=== PATIENT | female | born 1965 | race Caucasian/White ===

== ENCOUNTER 2019-03-07 13:53 | Observation (INO) | payer MEDICAID, SELFPAY ==
[2019-03-07] VITALS (11 sets, daily range): BP systolic 95–128; BP diastolic 44–78; PULSE 63–80; RESP 16–22; TEMP 36.4–37.1; O2SAT 90–95; BMI 45.6
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
--- NOTE | 2019-03-07 14:29 | CT_ITS ---
WS: [id number] CT HEAD NONCONTRAST HISTORY: AMS TECHNIQUE: Contiguous axial imaging performed through the brain in 2.5 mm imaging. Bone and soft tiss ue windows. Sagittal and coronal reformats reviewed. All CT scans at [facility] use at ast one of these dose optimization techniques: automated exposure control; mA and/or kV adjustment pe r patient size (includes targeted exams where dose is matched to clinical indication); or iterative r econstruction. DLP: 1843.89 mGy.cm COMPARISON: 06/05/2018 Significant motion artifact. Motion artifact obscures detail and evaluation for edema. No midline sebastian ft or mass effect or hemorrhage is identified. No atrophy or prior infarcts or herniation. Ventricles: Normal size with no hydrocephalus. Paranasal sinuses: As visualized are clear. Mastoid air cells: Well pneumatized. Calvarium and scalp: Skull is intact with no soft tissue edema or swelling. CT/CT head wo con* [id number] IMPRESSION: 1. Technically limited evaluation of the brain due to motion artifact. 2. No significant midline shift or mass effect. No acute hemorrhage is identif ied.
--- NOTE | 2019-03-07 14:29 | XR_ITS ---
WS: [id number] PORTABLE CHEST HISTORY: AMS COMPARISON: 06/05/2018 Lungs are clear and well expanded. No pleural effusion or pneumothorax. Cardiac size: Normal. Mediastinum/Aorta: Normal mediastinum. No osseous abnormality seen. XR/XR chest 1V portable [id number] IMPRESSION: Unremarkable portable chest.
--- NOTE | 2019-03-07 14:30 | ECG_ITS ---
Measurements Intervals [place] Rate: 71 P: 66 UT: 208 QRS: -31 QRSD: 101 T: 43 QT: 355 QTc: 387 SINUS RHYTHM LOW QRS VOLTAGE IN PRECORDIAL LEADS [QRS DEFLECTION < 1.0 mV IN CHEST LEADS] INFERIOR MYOCARDIAL INFARCTION, OF INDETERMINATE AGE ANTEROLATERAL MYOCARDIAL INFARCTION [40+ ms Q WAVE IN I/aVL/V3-V6], OF IN INDETERMINATE AGE Compared to ECG 06/05/2018 12:11:35 No significant changes Electronically Signed On 03-08-2019 14:58:35 [employer]CINE FURNACE LOADER by Josie Hewitt M.D. [id number]
[2019-03-07 14:51] LABS: ABG PCO2 57.3 mmHg (35-45); ABG PH Result 7.29 (7.35-7.45); Base Excess ABG -0.5 mmol/L (-2.0-2.0); Blood Gas Allen Test Pos; Blood Gas Sample Site Radial, left; Blood Gas Sample Type Arterial; HCO3 ABG 27.3 mmol/L (22-26); PO2 ABG 61.9 mmHg (80.0-100.0)
--- NOTE | 2019-03-07 14:54 | PC.NURSE ---
pt's bp 74/34 ed provider notified-fluid started and narcan 0.2mg given via verbal order of ed provider
[2019-03-07] MEDS: naloxone 0.4 mg/ml SDV ×2 (14:55→16:02)
[2019-03-07] MEDS: sodium chloride 0.9% 1,000 ML 999 ML IV (15:07)
[2019-03-07 15:09] LABS: Glucose Point of Care 353 mg/dL (70-110)
--- NOTE | 2019-03-07 15:20 | PC.NURSE ---
pt off unit to ct scan, on stretcher, with tech
[2019-03-07 15:37] LABS: Basophils % 0.3 %; Eosinophils # 0.4 10^3/uL (0.0-0.8); Eosinophils % 5.2 %; Hemoglobin 13.3 g/dL (11.5-15.3); Lymphocytes # 2.3 10^3/uL (0.8-4.8); Lymphocytes % 29.4 %; Mean Corpuscular HGB Conc 30.9 g/dL (30.0-36.0); Mean Corpuscular Hemoglobin 29.2 pg (28.0-34.0); Mean Corpuscular Volume 94.3 fL (81-99); Mean Platelet Volume 10.9 fL (7.4-10.4); Monocytes # 0.5 10^3/uL (0.2-0.9); Monocytes % 6.3 %; Neutrophils # 4.6 10^3/uL (1.8-7.7); Neutrophils % 58.3 %; Nucleated Red Blood Cells % 0 %; Platelet Count 239 10^3/cmm (130-400); Red Blood Count 4.56 10^6/uL (4.1-5.3); Red Cell Distribution Width 13.6 % (12.1-15.1); White Blood Count 7.9 10^3/uL (4.0-10.0)
[2019-03-07 15:48] LABS: Lactate (Lactic Acid level) 2.1 mmol/L (0.5-2.2)
[2019-03-07 15:51] LABS: Troponin(5th) Baseline 8 ng/mL (0-10)
[2019-03-07 16:00] LABS: Anion Gap 14.3 (5-19); Blood Urea Nitrogen 10 mg/dL (6-20); Carbon Dioxide 26 mmol/L (22-29); Chloride 99 mmol/L (98-107); Potassium 4.3 mmol/L (3.5-5.1); Sodium 135 mmol/L (136-145)
[2019-03-07 16:01] LABS: Alanine Aminotransferase 20 U/L (0-33); Albumin Level 3.3 g/dL (3.5-5.2); Alkaline Phosphatase 87 IU/L (35-105); Aspartate Amino Transferase 20 U/L (0-32); Calcium 9.3 mg/Dl (8.6-10.0); Globulin 2.8 g/dL (1.3-4.6); Glomerular Filtration Rate 87.2 mL/min (90-130); Glucose 380 mg/dL (74-109); Magnesium 2.1 mg/dL (1.7-2.3); Total Bilirubin 0.2 mg/dL (0.15-1.2); Total Protein 6.1 g/dL (6.6-8.7)
--- NOTE | 2019-03-07 16:04 | PC.NURSE ---
pt placed on bipap ventilation, RT at bedside
[2019-03-07 16:06] LABS: Acetaminophen < 5.0 ug/mL (10-30); Alcohol Level < 10 mg/dL (0-10); Salicylate < 0.3 mg/dL (3-10)
[2019-03-07 16:09] LABS: Ketone (Acetest) Serum Negative (Negative)
[2019-03-07 16:13] LABS: HCG, Serum Qual Negative (Negative)
--- NOTE | 2019-03-07 16:15 | PC.RESP ---
BIPAP ID==[id number]. Pt placed on bipap and immediately ripped it off. Dr Chavez notified.
--- NOTE | 2019-03-07 16:23 | PC.NURSE ---
pt refused to wear bipap ventilation. ed provider notified.
--- NOTE | 2019-03-07 16:30 | ECG_ITS ---
Measurements Intervals [place] Rate: 75 P: 65 MT: 199 QRS: -25 QRSD: 106 T: 53 QT: 359 QTc: 403 SINUS RHYTHM LOW QRS VOLTAGE IN PRECORDIAL LEADS ANTERIOR MYOCARDIAL INFARCTION , OF INDETERMINATE AGE Compared to ECG 06/05/2018 12:11:35 No significant changes Electronically Signed On 03-08-2019 15:02:58 SHOE STITCHER ODD by Josie Hewitt M.D. [id number] f
[2019-03-07 17:40] LABS: Troponin 5 2HR 7.26 ng/mL (0-10)
[2019-03-07 17:42] LABS: Troponin 5 2HR Delta -0.74 ABS# (0-10)
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
[2019-03-07 21:10] LABS: Glucose Point of Care 225 mg/dL (70-110)
[2019-03-07] MEDS: metoprolol tartrate 50 mg Tablet 100 MG PO (21:28)
[2019-03-07] MEDS: enoxaparin 40 mg/0.4 mL Syringe SUBCUT (21:29)
[2019-03-07] MEDS: cloNIDine 0.1 mg Tablet PO (21:29)
[2019-03-07] MEDS: pregabalin 100 mg Capsule 200 MG PO (21:32)
[2019-03-07 21:55] LABS: Troponin 5 6HR 6.25 ng/L (0-10)
[2019-03-07 22:01] LABS: Troponin 5 6HR Delta -1.75 ng/L (0-12)
[2019-03-08 02:19] LABS: Urine Appearance Clear (CLEAR); Urine Color Yellow (Yellow)
[2019-03-08 02:20] LABS: Bilirubin Urine Neg (NEGATIVE); Blood Urine Neg (Negative); Glucose Urine UA 4+ (Normal); Ketones Urine Negative (Negative); Leukocyte Esterase Urine Negative (Negative); Nitrate Urine Negative (Negative); Protein Urine Neg (Negative); RBC Urine 0-4 /hpf (0-2); Urobilinogen Urine Norm (Negative); pH Urine 5 (5-7)
[2019-03-08 02:21] LABS: Add Urine Culture? No; Bacteria Urine 1+; Mucus Urine 1+; Squamous Epithelial Cell Urine 0-4 (0-5)
[2019-03-08 04:00] VITALS: BP 102/60; PULSE 70; RESP 19; TEMP 36.6; O2SAT 92
[2019-03-08 06:13] LABS: Basophils % 0.4 %; Eosinophils # 0.4 10^3/uL (0.0-0.8); Eosinophils % 5.4 %; Hematocrit 42.8 % (37.0-47.0); Hemoglobin 13.5 g/dL (11.5-15.3); Lymphocytes # 2.2 10^3/uL (0.8-4.8); Lymphocytes % 31.8 %; Mean Corpuscular HGB Conc 31.5 g/dL (30.0-36.0); Mean Corpuscular Hemoglobin 28.7 pg (28.0-34.0); Mean Corpuscular Volume 91.1 fL (81-99); Mean Platelet Volume 10.9 fL (7.4-10.4); Monocytes # 0.5 10^3/uL (0.2-0.9); Monocytes % 6.6 %; Neutrophils # 3.8 10^3/uL (1.8-7.7); Neutrophils % 55.2 %; Nucleated Red Blood Cells % 0 %; Platelet Count 239 10^3/cmm (130-400); Red Cell Distribution Width 13.4 % (12.1-15.1); White Blood Count 6.8 10^3/uL (4.0-10.0)
[2019-03-08] MEDS: cyclobenzaprine 10 mg Tablet PO (06:18)
[2019-03-08 06:35] LABS: Glucose Point of Care 137 mg/dL (70-110)
[2019-03-08 06:45] LABS: Alanine Aminotransferase 18 U/L (0-33); Albumin Level 3.9 g/dL (3.5-5.2); Alkaline Phosphatase 88 IU/L (35-105); Anion Gap 13.1 (5-19); Aspartate Amino Transferase 16 U/L (0-32); Blood Urea Nitrogen 9 mg/dL (6-20); Calcium 9.2 mg/Dl (8.6-10.0); Carbon Dioxide 28 mmol/L (22-29); Chloride 104 mmol/L (98-107); Globulin 1.6 g/dL (1.3-4.6); Glomerular Filtration Rate 128.6 mL/min (90-130); Glucose 171 mg/dL (74-109); Potassium 4.1 mmol/L (3.5-5.1); Sodium 141 mmol/L (136-145); Total Bilirubin 0.2 mg/dL (0.15-1.2); Total Protein 5.5 g/dL (6.6-8.7)
[2019-03-08 07:36] VITALS: BP 134/79; PULSE 66; RESP 22; TEMP 37.1; O2SAT 97
[2019-03-08 08:36] VITALS: PULSE 68; RESP 18; O2SAT 98
[2019-03-08] MEDS: pantoprazole DR 40 mg Tablet PO (09:35)
[2019-03-08] MEDS: metoprolol tartrate 50 mg Tablet 100 MG PO (09:35)
[2019-03-08] MEDS: zonisamide 100 MG Capsule 400 MG PO (09:36)
[2019-03-08] MEDS: atorvastatin 40 mg Tablet 80 MG PO (09:36)
[2019-03-08] MEDS: duloxetine 60 mg Capsule PO (09:36)
[2019-03-08 09:37] VITALS: BP 130/86
[2019-03-08] MEDS: cloNIDine 0.1 mg Tablet PO (09:37)
[2019-03-08] MEDS: lisinopril 20 mg Tablet 40 MG PO (09:37)
[2019-03-08] MEDS: amlodipine 5 mg Tablet PO (09:37)
[2019-03-08] MEDS: pregabalin 100 mg Capsule 200 MG PO (09:46)
[2019-03-08] MEDS: isosorbide mononitrate ER 30 mg Tablet PO (09:46)
[2019-03-08 11:21] VITALS: BP 138/85; PULSE 70; RESP 22; TEMP 36.8; O2SAT 95
[2019-03-08 11:25] LABS: Glucose Point of Care 199 mg/dL (70-110)
--- NOTE | 2019-03-08 13:10 | PM.DCS ---
Discharge Providers Date of Admission: 03/07/19 17:12 Date of Discharge: 03/08/19 Attending Provider at Admission: Michael Veliz MD Attending Provider at Discharge: Michael Veliz MD Primary Care Provider: Lonny Mendoza Diagnoses at Discharge Discharge Diagnosis (1) Altered mental status: Status: Acute Problem details: Altered mental status secondary to polypharmacy, morphine, baclofen, Flexeril, Cymbalta, nortriptyline, pregabalin -I had a long discussion with patient about polypharmacy, her risk of opiate overdose, her risk of -Patient voiced understanding, agreeable to cut down her doses of medication Plan: -Decrease morphine to 30 mg every 12 hours as needed, was taking 30 mg every 8 hours, I think we can cut the dose down this early as she is only been taking the medication for the past 3 weeks, monitor for withdrawals regardless -Decrease Cymbalta to 60 mg once daily -Stop nortriptyline, high risk of serotonin syndrome with Cymbalta -Decrease pregabalin to 300 2 times daily -Decrease zaleplon to 5 mg at bedtime -continue Flexeril 10 mg 3 times daily -Start baclofen (2) Chronic prescription opiate use: Status: Acute Problem details: Patient will discuss with her pain management physician about stopping medications or de-escalating medications (3) Syncope: Status: Acute Problem details: Likely syncopal episodes are related to patient's polypharmacy EKG showed no significant ST-T wave changes, no significant troponin elevation, no significant delta, no active chest pain Telemetry monitoring was unremarkable Cardiac echocardiogram showed: CONCLUSIONS 1. Normal left ventricular cavity size and systolic function. Left ventricular ejection fraction is estimated at 60 %. No diagnostic regional wall motion abnormalities. Normal diastolic function. 2. Normal right ventricular size and systolic function. 3. Pulmonary artery pressure estimated at 31 mmHg. 4. No significant valvular abnormality. 5. No prior similar studies to compare. Head CT without contrast showed Significant motion artifact. Motion artifact obscures detail and evaluation for edema. No midline shift or mass effect or hemorrhage is identified. No atrophy or prior infarcts or herniation. Ventricles: Normal size with no hydrocephalus. (4) Hyperlipidemia: Status: Chronic (5) Hypertension: Status: Chronic (6) CAD (coronary artery disease): Status: Chronic (7) Systolic heart failure: Status: Chronic (8) Chronic back pain: Status: Chronic Reason for Visit Reason for Visit: Reason For Visit: won't wake up Hospital Course Hospital Course: Felisa Medina is a 53 year old female with a past medical history of insulin-dependent type 2 diabetes mellitus, hypertension, hyperlipidemia, CAD, systolic heart failure, insomnia, back pain, on chronic opiates, depression and anxiety, juvenile epilepsy seasonal Who presents to the emergency room with her and 2 daughters due to complaints of altered mental status. On admission patient's GCS was 15, she was found to have acute hypercarbic respiratory failure secondary to opiate medications, refused BiPAP, did well on room air,saturating in the high 90s on room air, no tachypnea, no respiratory depression, no complaints of shortness of breath, alert oriented x3, she did receive 0.8 mg of Narcan in the ER. Patient's medications were adjusted as above, she was managed on the medical floors, did clinically well, no respiratory depression, no withdrawal symptoms, no changes in her mentation, her vitals were within normal limits, and she was doing well upon discharge. She was discharged with instructions to follow medication instructions as above, if she were to have any symptoms of altered mental status come back to the emergency room, if she has any symptoms of withdrawal come back to the emergency room. Patient was advised to follow-up with her pain management physician in the next 2 to 3 weeks. Follow-up with her primary care physician in the next week. Physical Exam Const: COMMON NORMALS: no apparent distress, oriented x3 and no limitations GENERAL APPEARANCE: cooperative, comfortable and well developed HENMT: COMMON NORMALS: normocephalic and head/scalp atraumatic HEAD & SCALP: normocephalic and atraumatic Eye: COMMON NORMALS: PERRL, EOMs intact bilaterally and conjunctivae normal CONJUNCTIVA: Yes conjunctivae normal PUPIL: Yes PERRL Neck/C-Spine: COMMON NORMALS: full ROM, no lymphadenopathy, no JVD and thyroid normal THYROID: thyroid normal Lymph: LYMPHATIC: no lymphadenopathy noted Chest: COMMONS NORMALS: inspection of chest normal Resp: COMMON NORMALS: normal respiratory effort, no retractions, no use of accessory muscles, clear to auscultation bilaterally and percussion normal AUSCULTATION: clear to auscultation bilaterally PERCUSSION: percussion normal Cardio: COMMON NORMALS: no JVD, regular rate, regular rhythm, S1 normal heart sound, S2 normal heart sound, no gallops, no clicks, no murmurs, no rub and peripheral pulses 2+ throughout RATE: regular rate RHYTHM: regular rhythm HEART SOUNDS: S1 normal and S2 normal PERIPHERAL PULSES: pulses 2+ throughout GI: COMMON NORMALS: normal to inspection, nondistended, normoactive bowel sounds, soft to palpation, non-tender, no hepatosplenomegaly, no masses and no bruits PALPATION: Yes soft and Yes no hepatosplenomegaly : COMMON NORMALS: Yes no CVA tenderness BLADDER/KIDNEY EXAM: Yes no CVA tenderness Back/Pelvis: COMMON NORMALS: no CVA tenderness and thoracic and lumbar spine normal to inspection Extremity: COMMON NORMALS: normal to inspection, full ROM, normal capillary refill, no clubbing, cyanosis or edema and no pedal edema Neuro: COMMON NORMALS: oriented x3, CN's II-XII intact bilaterally, moves all extremities, no focal motor deficits, no sensory deficits noted and deep tendon reflexes 2+ bilaterally COORDINATION/BALANCE: [id number] test normal SPEECH: speech normal COORDINATION: [id number] test normal Psych: COMMON NORMALS: mental status grossly normal, thought process normal, cooperative, affect normal, speech normal and activity/motor behavior normal SPEECH: Yes normal speech THOUGHT PROCESS: normal thought process Skin: COMMON NORMALS: no rashes or lesions noted GENERAL SKIN EXAM: no rashes or lesions noted Discharge Data Data Completed and Pending: Completed Studies During Hospitalization Category Date Time Status CT head wo con* [id number] Urgent Cat Scan 03/07/19 14:29 Completed XR chest 1V bhupinder ble [id number] Urgent Exams 03/07/19 14:29 Completed Pending at discharge Category Date Time Status Arterial Blood Ga s W/O Coox Routine Lab 03/07/19 14:41 Results Arterial Blood Ga s W/O Coox Routine Lab 03/07/19 15:24 Ordered Complete Blood Co unt w/Auto AM LABS Lab 03/09/19 04:00 Ordered Complete Blood Co unt w/Auto AM LABS Lab 03/10/19 04:00 Ordered Comprehensive Met abolic Panel AM JOSE RAMON BS Lab 03/09/19 04:00 Ordered Comprehensive Met abolic Panel AM JOSE RAMON AREVALO Lab 03/10/19 04:00 Ordered CV echo complete* [id number] Urgent Ultrasound 03/08/19 20:19 Taken Labs from last 24 hours 03/08/19 03/08/19 03/08/19 11:15 06:26 05:35 WBC RBC Hgb Hct MCV MCH MCHC RDW Plt Count MPV Neut % (Auto) Lymph % (Auto) [place] % (Auto) Eos % (Auto) Baso % (Auto) Neut # (Auto) Lymph # (Auto) [place] # (Auto) Eos # (Auto) Baso # (Auto) Nucleated RBC % (a uto) Nucleated RBCs # Specimen Type Sample Site ABG pH ABG pCO2 ABG pO2 ABG HCO3 ABG Base Excess Pedro Pablo Test Hematocrit FiO2 Title Clerk Automobile ID Sodium 141 Potassium 4.1 Chloride 104 Carbon Dioxide 28 Anion Gap 13.1 BUN 9 Creatinine 0.5 GFR Calculation 128.6 Glucose 171 H POC Glucose 199 137 Lactate Calcium 9.2 Magnesium Total Bilirubin 0.2 AST 16 ALT 18 Alkaline Phosphata se 88 Troponin I 6 Hour Troponin I Hi Sens Del Troponin T Baselin e Troponin T 120 Min [place] Troponin T Total Protein 5.5 L Albumin 3.9 Globulin 1.6 TSH HCG, Qual Urine Color Urine Appearance Urine pH Ur Specific Gravit y Urine Protein Urine Glucose (UA) Urine Ketones Urine Occult Blood Urine Nitrate Urine Bilirubin Urine Urobilinogen Ur Leukocyte [place] Urine RBC Urine WBC Ur Squamous Epith Cells Urine Bacteria Urine Mucus Salicylates Acetaminophen Ethyl Alcohol Serum Ketones 03/08/19 03/08/19 03/07/19 05:35 00:46 21:27 WBC 6.8 RBC 4.70 Hgb 13.5 Hct 42.8 MCV 91.1 MCH 28.7 MCHC 31.5 RDW 13.4 Plt Count 239 MPV 10.9 H Neut % (Auto) 55.2 Lymph % (Auto) 31.8 [place] % (Auto) 6.6 Eos % (Auto) 5.4 Baso % (Auto) 0.4 Neut # (Auto) 3.8 Lymph # (Auto) 2.2 [place] # (Auto) 0.5 Eos # (Auto) 0.4 Baso # (Auto) 0.0 Nucleated RBC % (a uto) 0 Nucleated RBCs # 0.0 Specimen Type Sample Site ABG pH ABG pCO2 ABG pO2 ABG HCO3 ABG Base Excess [place] Test Hematocrit FiO2 Title Clerk Automobile ID Sodium Potassium Chloride Carbon Dioxide Anion Gap BUN Creatinine GFR Calculation Glucose POC Glucose Lactate Calcium Magnesium Total Bilirubin AST ALT Alkaline Phosphata se Troponin I 6 Hour 6.25 Troponin I Hi Sens Del -1.75 L Troponin T Baselin e Troponin T 120 Min [place] Troponin T Total Protein Albumin Globulin TSH HCG, Qual Urine Color Yellow Urine Appearance Clear Urine pH 5 Ur Specific Gravit y 1.020 Urine Protein Neg Urine Glucose (UA) 4+ H Urine Ketones Negative Urine Occult Blood Neg Urine Nitrate Negative Urine Bilirubin Neg Urine Urobilinogen Norm Ur Leukocyte [place] Negative Urine RBC 0-4 H Urine WBC 5-10 H Ur Squamous Epith Cells 0-4 H Urine Bacteria 1+ H Urine Mucus 1+ Salicylates Acetaminophen Ethyl Alcohol Serum Ketones 03/07/19 03/07/19 03/07/19 20:30 17:15 15:20 WBC RBC Hgb Hct MCV MCH MCHC RDW Plt Count MPV Neut % (Auto) Lymph % (Auto) [place] % (Auto) Eos % (Auto) Baso % (Auto) Neut # (Auto) Lymph # (Auto) [place] # (Auto) Eos # (Auto) Baso # (Auto) Nucleated RBC % (a uto) Nucleated RBCs # Specimen Type Sample Site ABG pH ABG pCO2 ABG pO2 ABG HCO3 ABG Base Excess [place] Test Hematocrit FiO2 Title Clerk Automobile ID Sodium Potassium Chloride Carbon Dioxide Anion Gap BUN Creatinine GFR Calculation Glucose POC Glucose 225 Lactate Calcium Magnesium Total Bilirubin AST ALT Alkaline Phosphata se Troponin I 6 Hour Troponin I Hi Sens Del Troponin T Baselin e 8 Troponin T 120 Min [place] 7.26 Delta Troponin T -0.74 L Total Protein Albumin Globulin TSH HCG, Qual Urine Color Urine Appearance Urine pH Ur Specific Gravit y Urine Protein Urine Glucose (UA) Urine Ketones Urine Occult Blood Urine Nitrate Urine Bilirubin Urine Urobilinogen Ur Leukocyte [place] Urine RBC Urine WBC Ur Squamous Epith Cells Urine Bacteria Urine Mucus Salicylates Acetaminophen Ethyl Alcohol Serum Ketones 03/07/19 03/07/19 03/07/19 15:20 15:20 15:20 WBC RBC Hgb Hct MCV MCH MCHC RDW Plt Count MPV Neut % (Auto) Lymph % (Auto) [place] % (Auto) Eos % (Auto) Baso % (Auto) Neut # (Auto) Lymph # (Auto) [place] # (Auto) Eos # (Auto) Baso # (Auto) Nucleated RBC % (a uto) Nucleated RBCs # Specimen Type Sample Site ABG pH ABG pCO2 ABG pO2 ABG HCO3 ABG Base Excess [place] Test Hematocrit FiO2 Title Clerk Automobile ID Sodium Potassium Chloride Carbon Dioxide Anion Gap BUN Creatinine GFR Calculation Glucose POC Glucose Lactate 2.1 Calcium Magnesium Total Bilirubin AST ALT Alkaline Phosphata se Troponin I 6 Hour Troponin I Hi Sens Del Troponin T Baselin e Troponin T 120 Min [place] Troponin T Total Protein Albumin Globulin TSH HCG, Qual Negative Urine Color Urine Appearance Urine pH Ur Specific Gravit y Urine Protein Urine Glucose (UA) Urine Ketones Urine Occult Blood Urine Nitrate Urine Bilirubin Urine Urobilinogen Ur Leukocyte [place] Urine RBC Urine WBC Ur Squamous Epith Cells Urine Bacteria Urine Mucus Salicylates Acetaminophen Ethyl Alcohol Serum Ketones Negative 03/07/19 03/07/19 03/07/19 15:20 15:20 14:41 WBC 7.9 RBC 4.56 Hgb 13.3 Hct 43.0 MCV 94.3 MCH 29.2 MCHC 30.9 RDW 13.6 Plt Count 239 MPV 10.9 H Neut % (Auto) 58.3 Lymph % (Auto) 29.4 [place] % (Auto) 6.3 Eos % (Auto) 5.2 Baso % (Auto) 0.3 Neut # (Auto) 4.6 Lymph # (Auto) 2.3 [place] # (Auto) 0.5 Eos # (Auto) 0.4 Baso # (Auto) 0.0 Nucleated RBC % (a uto) 0 Nucleated RBCs # 0.0 Specimen Type Arterial Sample Site Radial, left ABG pH 7.29 L ABG pCO2 57.3 H ABG pO2 61.9 L ABG HCO3 27.3 H ABG Base Excess -0.5 [place] Test Pos Hematocrit 42.0 FiO2 21.0 Title Clerk Automobile ID ed Sodium 135 L Potassium 4.3 Chloride 99 Carbon Dioxide 26 Anion Gap 14.3 BUN 10 Creatinine 0.7 GFR Calculation 87.2 L Glucose 380 H POC Glucose Lactate Calcium 9.3 Magnesium 2.1 Total Bilirubin 0.2 AST 20 ALT 20 Alkaline Phosphata se 87 Troponin I 6 Hour Troponin I Hi Sens Del Troponin T Baselin e Troponin T 120 Min [place] Troponin T Total Protein 6.1 L Albumin 3.3 L Globulin 2.8 TSH 1.50 HCG, Qual Urine Color Urine Appearance Urine pH Ur Specific Gravit y Urine Protein Urine Glucose (UA) Urine Ketones Urine Occult Blood Urine Nitrate Urine Bilirubin Urine Urobilinogen Ur Leukocyte [place] Urine RBC Urine WBC Ur Squamous Epith Cells Urine Bacteria Urine Mucus Salicylates < 0.3 L Acetaminophen < 5.0 L Ethyl Alcohol < 10 Serum Ketones 03/07/19 14:10 WBC RBC Hgb Hct MCV MCH MCHC RDW Plt Count MPV Neut % (Auto) Lymph % (Auto) [place] % (Auto) Eos % (Auto) Baso % (Auto) Neut # (Auto) Lymph # (Auto) [place] # (Auto) Eos # (Auto) Baso # (Auto) Nucleated RBC % (a uto) Nucleated RBCs # Specimen Type Sample Site ABG pH ABG pCO2 ABG pO2 ABG HCO3 ABG Base Excess [place] Test Hematocrit FiO2 Title Clerk Automobile ID Sodium Potassium Chloride Carbon Dioxide Anion Gap BUN Creatinine GFR Calculation Glucose POC Glucose 353 Lactate Calcium Magnesium Total Bilirubin AST ALT Alkaline Phosphata se Troponin I 6 Hour Troponin I Hi Sens Del Troponin T Baselin e Troponin T 120 Min [place] Troponin T Total Protein Albumin Globulin TSH HCG, Qual Urine Color Urine Appearance Urine pH Ur Specific Gravit y Urine Protein Urine Glucose (UA) Urine Ketones Urine Occult Blood Urine Nitrate Urine Bilirubin Urine Urobilinogen Ur Leukocyte [place] Urine RBC Urine WBC Ur Squamous Epith Cells Urine Bacteria Urine Mucus Salicylates Acetaminophen Ethyl Alcohol Serum Ketones Vitals: Last Vital Signs Temp 98.3 F 03/08/19 11:21 Pulse 70 03/08/19 11:21 Resp 22 H 03/08/19 11:21 BP 138/85 03/08/19 11:21 Pulse Ox 95 03/08/19 11:21 Discharge Plan Discharge Patient Disposition: Home, Self-Care Condition: Stable Prescriptions: Continued cyclobenzaprine 10 mg Tablet 10 mg PO TID PRN (Reason: Spasms) RF: 0 clonidine HCl 0.1 mg Tablet 0.1 mg PO BID RF: 0 metoprolol tartrate 100 mg Tablet 100 mg PO BID RF: 0 isosorbide mononitrate 30 mg Tablet Extended Release 24 Hr 30 mg PO DAILY RF: 0 amlodipine [Norvasc] 5 mg Tablet 5 mg PO DAILY RF: 0 zonisamide 100 mg Capsule 200 mg PO BID RF: 0 pantoprazole [Protonix] 40 mg Tablet,Delayed Release (Dr/Ec) 40 mg PO DAILY RF: 0 ergocalciferol (vitamin D2) [Vitamin D2] 50,000 unit Capsule 50,000 unit PO Q7D RF: 0 ProAir HFA 90 mcg/actuation Hfa Aerosol Inhaler 2 puff INHALATION QID RF: 0 lisinopril 40 mg Tablet 40 mg PO DAILY RF: 0 rosuvastatin [Crestor] 20 mg Tablet 20 mg PO DAILY RF: 0 duloxetine [Cymbalta] 60 mg Capsule,Delayed Release(Dr/Ec) 60 mg PO DAILY RF: 0 Levemir FlexTouch U-100 Insuln 100 unit/mL (3 mL) Insulin Pen 100 unit SUBCUT BID RF: 0 Farxiga 10 mg Tablet 10 mg PO DAILY RF: 0 Bydureon 2 mg/0.65 mL Pen Injector 2 mg SUBCUT Q7D RF: 0 Novolog Flexpen U-100 Insulin See Rx Instructions .ROUTE .COMPLEX RF: 0 Changed morphine 30 mg Tablet 30 mg PO Q12H MDD 90 MG PRN (Reason: Pain) Qty: 0 RF: 0 pregabalin 300 mg Capsule 300 mg PO BID Qty: 0 RF: 0 zaleplon 10 mg Capsule 5 mg PO BEDTIME Qty: 0 RF: 0 Discontinued baclofen 20 mg Tablet 20 mg PO TID PRN (Reason: Spasms) RF: 0 nortriptyline 25 mg Capsule 25 mg PO BID RF: 0 duloxetine [Cymbalta] 30 mg Capsule,Delayed Release(Dr/Ec) 30 mg PO DAILY RF: 0 Discharge Orders: Discharge Order (Routine); Ordered 03/08/19 Ordered By: Michael Veliz Referrals: Lonny Mendoza, [employer] [Primary Care Provider] - (Please call and schedule a follow up for 1-2 weeks) Patient Instructions: Type 2 Diabetes, Narcotic Abuse (DC), Narcotic Pain Management (DC), Opioid Withdrawal (DC) Activity Restrictions/Additional Instructions: -Please follow-up with pain clinic in 1 to 2 weeks -The doses of your medications have been reduced, if you have symptoms of withdrawal please come back to the emergency room -If you have recurrent episodes of lightheadedness, dizziness, syncope, memory issues please come back to emergency room Discharge Attestations Time Spent in Discharge Care*: greater than 30 min Quality Metrics Clinical Quality Measures During this hospital stay, did patient experience: None Coding Level of Care Code Acute Archivist Political History for Warren Rosado Diagnoses Altered mental status R41.82 Chronic prescription opiate use Z79.891 Syncope R55 Hyperlipidemia E78.5 Hypertension I10 CAD (coronary artery disease) I25.10 Systolic heart failure I50.20 Chronic back pain M54.9; G89.29
[2019-03-08 14:36] VITALS: BP 130/86; PULSE 68; RESP 22; TEMP 36.8; O2SAT 95
--- NOTE | 2019-03-08 14:58 | PC.OT ---
OT note: Attempted OT eval in am. Patient awake, however responded, I dont need any therapy and reports feeling better. Will re-attempt 03/09/19.
--- NOTE | 2019-03-08 20:19 | USCV_ITS ---
Felisa Medina Age: 53 Gender: F : 1965 Exam Date: 03/08/2019 08:44 Ordering Phys: Michael Veliz MD Technologist: Carolina Qureshi [place] [facility] [place]: Syncope BP: 134 / 79 HR: 78 Rhythm: Sinus Technical Quality: Technically difficult study MEASUREMENTS (Male / Female) Normal Values 2D ECHO LV Diastolic Diameter PLAX 3.4 cm 4.2 - 5.9 / 3.9 - 5.3 cm LV Systolic Diameter PLAX 2.5 cm LV Chamber Size 4.5 cm IVS Diastolic Thickness 1.7 cm 0.6 - 1.0 / 0.6 - 0.9 cm IVS Systolic Thickness 1.9 cm LVPW Diastolic Thickness 1.6 cm 0.6 - 1.0 / 0.6 - 0.9 cm LVPW Systolic Thickness 1.9 cm RV Chamber Size 2.9 cm LVOT Diameter 2.1 cm LV Ejection Fraction 2D Teich 54.0 % LA Diameter 4.0 cm LA Width 3.7 cm LA Height 5.5 cm RA Width 3.6 cm RA Height 5.4 cm Aorta at Sinotubular Diameter 3.3 cm M-MODE LV Diastolic Diameter MM 3.9 cm 4.2 - 5.9 / 3.9 - 5.3 cm LV Systolic Diameter MM 2.7 cm LV Ejection Fraction MM Teich 59.1 % IVS Diastolic Thickness MM 1.5 cm 0.6 - 1.0 / 0.6 - 0.9 cm IVS Systolic Thickness MM 1.5 cm LVPW Diastolic Thickness MM 1.4 cm 0.6 - 1.0 / 0.6 - 0.9 cm LVPW Systolic Thickness MM 1.8 cm Aortic Annulus Diameter 3.5 cm LA Ao Ratio MM 1.1 DOPPLER AV Peak Velocity 141.0 cm/s LVOT Peak Velocity 96.0 cm/s AV Area Cont Eq vti 2.9 cm squared AV Area Cont Eq pk 2.3 cm squared MV Area PHT 4.9 cm squared Mitral E to A Ratio 1.4 MV E' Velocity 11.0 cm/s Mitral E to MV E' Ratio 7.4 Mitral E to LV E' Lateral Ratio 7.8 Mitral E to LV E' Septal Ratio 7.2 TR Peak Velocity 262.0 cm/s TR Peak Gradient 27.4 mmHg TV Peak E Velocity 52.0 cm/s Right Atrial Pressure 3.0 mmHg Pulmonary Artery Systolic Pressu 30.5 mmHg PV Peak Velocity 75.0 cm/s RV Acceleration Time 0.1 s RV Ejection Time 0.4 s RV AcT/ET 0.3 FINDINGS Left Ventricle Normal left ventricular cavity size. Normal left ventricular systolic function. Left ventricular ejection fraction is estimated at 60 %. No diagnostic regional wall motion abnormalities. Normal diastolic function. Right Ventricle Normal right ventricular size and systolic function. Right ventricular systolic pressure 30.5 mmHg. Right Atrium Normal right atrial size. Left Atrium Upper normal left atrial size. Mitral Valve Structurally normal mitral valve. No mitral valve stenosis. No mitral valve regurgitation. Aortic Valve Aortic valve not well visualized. No aortic valve stenosis. No aortic valve regurgitation. Tricuspid Valve Trace tricuspid valve regurgitation. Pulmonic Valve Pulmonic valve not well visualized. No pulmonary valve stenosis. Trace pulmonary valve regurgitation. Pericardium No pericardial effusion. Aorta Normal size aortic root and proximal ascending aorta. CONCLUSIONS 1. Normal left ventricular cavity size and systolic function. Left ventricular ejection fraction is estimated at 60 %. No diagnostic regional wall motion abnormalities. Normal diastolic function. 2. Normal right ventricular size and systolic function. 3. Pulmonary artery pressure estimated at 31 mmHg. 4. No significant valvular abnormality. 5. No prior similar studies to compare. Josie Hewitt MD (Electronically Signed) Final Date: 08 March 2019 13:13 S
[2019-03-12 08:32] LABS: Oxygen Device ROOMAIR
== END 2019-03-08 15:00 | disposition home or self-care (01) ==
LOC: ER 17:14 → MEDSURG 19:03
PROVIDERS: Admitting Provider Family Medicine; Emergency Provider Emergency Medicine; Family Provider Nurse Practitioner; PCP Nurse Practitioner; Visit Provider Family Medicine
DX: R41.82 Altered mental status, unspecified (principal); Z79.891 Long term (current) use of opiate analgesic; R55 Syncope and collapse; E78.5 Hyperlipidemia, unspecified; I25.10 Atherosclerotic heart disease of native coronary artery without angina pectoris; I11.0 Hypertensive heart disease with heart failure; I50.20 Unspecified systolic (congestive) heart failure; G89.29 Other chronic pain; M54.9 Dorsalgia, unspecified; G47.10 Hypersomnia, unspecified; F32.9 Major depressive disorder, single episode, unspecified; F41.9 Anxiety disorder, unspecified; E11.9 Type 2 diabetes mellitus without complications; Z79.4 Long term (current) use of insulin; Z82.49 Family history of ischemic heart disease and other diseases of the circulatory system; Z83.3 Family history of diabetes mellitus
CPT/HCPCS: 36415; 36416; 36600; 70450; 71045; 80053; 80307; 81001; 82009; 82803; 82962; 83605; 83735; 84443; 84484; 84703; 85025; 93005; 93306; 94660; 94664; 96360; 96361; 96372; 96374; 99282; 99291; G0378; J1650; J1815; J2310; J7030

== ENCOUNTER 2019-03-27 15:18 | Emergency (ER) | payer MEDICAID, SELFPAY ==
[2019-03-27 15:27] VITALS: BP 145/78; PULSE 73; RESP 19; TEMP 36.9; O2SAT 97
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
[2019-03-27 17:13] LABS: Basophils % 0.4 %; Eosinophils # 0.5 10^3/uL (0.0-0.8); Eosinophils % 7.6 %; Hemoglobin 14.5 g/dL (11.5-15.3); Lymphocytes # 2.3 10^3/uL (0.8-4.8); Lymphocytes % 32.1 %; Mean Corpuscular HGB Conc 31.5 g/dL (30.0-36.0); Mean Platelet Volume 11.3 fL (7.4-10.4); Monocytes # 0.5 10^3/uL (0.2-0.9); Monocytes % 6.8 %; Neutrophils # 3.8 10^3/uL (1.8-7.7); Neutrophils % 52.8 %; Nucleated Red Blood Cells % 0 %; Red Blood Count 5.17 10^6/uL (4.1-5.3); Red Cell Distribution Width 13.6 % (12.1-15.1); White Blood Count 7.1 10^3/uL (4.0-10.0)
[2019-03-27 17:27] LABS: Alanine Aminotransferase 20 U/L (0-33); Albumin Level 3.9 g/dL (3.5-5.2); Alkaline Phosphatase 106 IU/L (35-105); Anion Gap 16.3 (5-19); Blood Urea Nitrogen 10 mg/dL (6-20); Calcium 9.7 mg/dL (8.5-10.5); Carbon Dioxide 28 mmol/L (22-29); Chloride 96 mmol/L (98-107); Globulin 3.3 g/dL (1.3-4.6); Glomerular Filtration Rate 87.2 mL/min (90-130); Glucose 380 mg/dL (74-109); Potassium 4.3 mmol/L (3.5-5.1); Sodium 136 mmol/L (136-145); Total Bilirubin 0.2 mg/dL (0.15-1.2); Total Protein 7.2 g/dL (6.6-8.7)
[2019-03-27 17:32] LABS: Acetaminophen < 5.0 ug/mL (10-30); Alcohol Level < 10 mg/dL (0-10); Salicylate < 0.3 mg/dL (3-10)
[2019-03-27 17:33] LABS: Aspartate Amino Transferase 21 U/L (0-32)
[2019-03-27 17:38] LABS: Platelet Count 224 10^3/cmm (130-400)
[2019-03-27 17:39] LABS: Slide Review Slide Review Perform
[2019-03-27 18:38] VITALS: BP 148/79; PULSE 74; RESP 17; O2SAT 97
--- NOTE | 2019-03-28 14:20 | DCPLANNER ---
disaster recovery manager had message to schedule a follow up appointment for patient with Dr. Bañuelos. disaster recovery manager called the office of Dr. Bañuelos, spoke with Beulah, a follow up appointment is scheduled for Sunday, May 19, 2019 at 12:45. disaster recovery manager called patient, unable to speak with patient at this time, and unable to leave a voicemail for patient. disaster recovery manager mailed patient a letter regarding the appointment information.
--- NOTE | 2019-05-21 15:14 | DCPLANNER ---
Appointment scheduled for 05.19.[address] Bañuelos, cancelled by patient.
== END 2019-03-27 18:41 | disposition home or self-care (01) ==
PROVIDERS: Emergency Provider Family Medicine; Family Provider Nurse Practitioner; PCP Nurse Practitioner
DX: G30.0 Alzheimer's disease with early onset (principal); F02.80 Dementia in other diseases classified elsewhere, unspecified severity, without behavioral disturbance, psychotic disturbance, mood disturbance, and anxiety; Z79.4 Long term (current) use of insulin; I25.10 Atherosclerotic heart disease of native coronary artery without angina pectoris; E11.9 Type 2 diabetes mellitus without complications; E78.5 Hyperlipidemia, unspecified; K21.9 Gastro-esophageal reflux disease without esophagitis; I11.0 Hypertensive heart disease with heart failure; I50.20 Unspecified systolic (congestive) heart failure
CPT/HCPCS: 36415; 70450; 71045; 72040; 80053; 80307; 85025; 99281

== ENCOUNTER → 2019-04-15 08:04 | Outpatient (BNVA) | payer MEDICAID, SELFPAY | PROVIDERS: Family Provider Nurse Practitioner; PCP Nurse Practitioner; Visit Provider Nurse Practitioner | DX: E11.9 Type 2 diabetes mellitus without complications (principal); E55.9 Vitamin D deficiency, unspecified | CPT/HCPCS: 81003; 82306; 83036; 83540; 83550 ==

== ENCOUNTER → 2019-05-02 09:12 | Outpatient (BNVA) | payer MEDICAID, SELFPAY | PROVIDERS: Family Provider Nurse Practitioner; PCP Nurse Practitioner; Visit Provider Anesthesiology | DX: G89.29 Other chronic pain (principal); M54.5 Low back pain; M25.562 Pain in left knee; Z79.891 Long term (current) use of opiate analgesic | CPT/HCPCS: 99214 ==

== ENCOUNTER → 2019-05-22 09:24 | Outpatient (BNVA) | payer MEDICAID, SELFPAY | PROVIDERS: Family Provider Nurse Practitioner; PCP Nurse Practitioner; Visit Provider Nurse Practitioner | DX: E11.9 Type 2 diabetes mellitus without complications (principal) | CPT/HCPCS: 80053; 80061; 83036 ==

== ENCOUNTER → 2019-06-30 14:45 | Outpatient (BNVA) | payer MEDICAID, SELFPAY | PROVIDERS: Family Provider Nurse Practitioner; PCP Nurse Practitioner; Visit Provider Nurse Practitioner | DX: M54.9 Dorsalgia, unspecified (principal); E11.9 Type 2 diabetes mellitus without complications; E78.5 Hyperlipidemia, unspecified; N39.0 Urinary tract infection, site not specified | CPT/HCPCS: 80053; 80061; 83036; 85025 ==

== ENCOUNTER → 2019-07-01 08:13 | Outpatient (BNVA) | payer MEDICAID, SELFPAY | PROVIDERS: Family Provider Nurse Practitioner; PCP Nurse Practitioner; Visit Provider Nurse Practitioner | DX: N39.0 Urinary tract infection, site not specified (principal) | CPT/HCPCS: 81000 ==

== ENCOUNTER 2019-07-18 14:37 | Outpatient (CLI) | payer MEDICAID, SELFPAY ==
--- NOTE | 2019-07-18 14:45 | US_ITS ---
WS: [id number] RENAL ULTRASOUND URINARY BLADDER ULTRASOUND HISTORY: mid back pain COMPARISON: 11/02/2015 TECHNIQUE: 2-D and color Doppler imaging of the kidney submitted. Right kidney: 11.7 cm x 6.8 cm x 5.9 cm. Normal size kidney. No hydronephrosis or solid mass. Left kidney: 13.3 cm x 6.9 cm x 7.1 cm. Normal size kidney. Slightly lobulated cyst from the mid kidney measures 3.3 x 5.1 x 3.0 cm. No obstr uction or solid mass. Aorta: Normal. Urinary Bladder: Normal distention. US/US renal BI with bladder IMPRESSION: 1. No renal obstruction. 2. Mid LEFT kidney cyst.
== END 2019-07-18 14:38 | disposition home or self-care (01) ==
LOC: RAD 14:41
PROVIDERS: PCP Nurse Practitioner; Visit Provider Nurse Practitioner
DX: M54.9 Dorsalgia, unspecified (principal); N28.1 Cyst of kidney, acquired
CPT/HCPCS: 76770; 76857

== ENCOUNTER → 2019-07-31 10:49 | Outpatient (BNVA) | payer MEDICAID, SELFPAY | PROVIDERS: PCP Nurse Practitioner; Visit Provider Specialist | DX: M25.561 Pain in right knee (principal); M25.562 Pain in left knee | CPT/HCPCS: 73560; 73565 ==

== ENCOUNTER → 2019-09-16 13:34 | Outpatient (BNVA) | payer MEDICAID, SELFPAY | PROVIDERS: PCP Nurse Practitioner; Visit Provider Anesthesiology | DX: G89.29 Other chronic pain (principal); M54.9 Dorsalgia, unspecified; M25.562 Pain in left knee; Z79.891 Long term (current) use of opiate analgesic | CPT/HCPCS: 99213; 99214 ==

== ENCOUNTER → 2019-09-17 16:13 | Outpatient (BNVA) | payer MEDICAID, SELFPAY | PROVIDERS: PCP Nurse Practitioner; Visit Provider Nurse Practitioner | DX: E11.65 Type 2 diabetes mellitus with hyperglycemia (principal); Z79.4 Long term (current) use of insulin; E55.9 Vitamin D deficiency, unspecified; I10 Essential (primary) hypertension; M54.9 Dorsalgia, unspecified; K59.03 Drug induced constipation; T40.2X5A Adverse effect of other opioids, initial encounter; K21.9 Gastro-esophageal reflux disease without esophagitis; E78.5 Hyperlipidemia, unspecified; M79.7 Fibromyalgia; G47.00 Insomnia, unspecified; E11.40 Type 2 diabetes mellitus with diabetic neuropathy, unspecified; G89.29 Other chronic pain; M54.5 Low back pain | CPT/HCPCS: 72040; 72072; 72100; 80053; 81000; 82306; 82607; 83036; 84443 ==

== ENCOUNTER → 2019-09-26 11:53 | Outpatient (BNVA) | payer MEDICAID, SELFPAY | PROVIDERS: PCP Nurse Practitioner; Visit Provider Nurse Practitioner Family | DX: A08.4 Viral intestinal infection, unspecified (principal) | CPT/HCPCS: 80053; 85025 ==

== ENCOUNTER → 2019-11-25 11:22 | Outpatient (BNVA) | payer MEDICAID, SELFPAY | PROVIDERS: PCP Nurse Practitioner; Visit Provider Nurse Practitioner | DX: E11.65 Type 2 diabetes mellitus with hyperglycemia (principal); Z79.4 Long term (current) use of insulin | CPT/HCPCS: 81000 ==

== ENCOUNTER → 2019-12-04 08:43 | Outpatient (BNVA) | payer MEDICAID, SELFPAY | PROVIDERS: PCP Nurse Practitioner; Visit Provider Anesthesiology | DX: G89.29 Other chronic pain (principal); M54.41 Lumbago with sciatica, right side; M54.42 Lumbago with sciatica, left side; M54.9 Dorsalgia, unspecified; Z79.891 Long term (current) use of opiate analgesic | CPT/HCPCS: 99213; 99214 ==

== ENCOUNTER → 2020-01-22 12:55 | Outpatient (BNVA) | payer MEDICAID, SELFPAY | PROVIDERS: PCP Nurse Practitioner; Visit Provider Anesthesiology | DX: G89.29 Other chronic pain (principal); M54.42 Lumbago with sciatica, left side; M54.41 Lumbago with sciatica, right side; M54.9 Dorsalgia, unspecified; M17.11 Unilateral primary osteoarthritis, right knee; Z79.891 Long term (current) use of opiate analgesic | CPT/HCPCS: 99213; 99214 ==

== ENCOUNTER 2020-01-30 15:35 | Inpatient (IN) | payer MEDICAID, SELFPAY ==
[2020-01-30] VITALS (8 sets, daily range): BP systolic 91–121; BP diastolic 42–79; PULSE 57–75; RESP 16–18; TEMP 36.4–36.9; O2SAT 91–99; BMI 39.9
[2020-01-30 16:01] LABS: Glucose Point of Care 213 mg/dL (70-110)
--- NOTE | 2020-01-30 16:08 | XRR_ITS ---
PROCEDURE INFORMATION: Exam: XR Chest, 1 View Exam date and time: 01/30/2020 4:12 PM Age: 54 years old Clinical indication: Other: AMS TECHNIQUE: Imaging protocol: XR of the chest Views: 1 view. COMPARISON: CR XR chest 1V portable [id number] 03/27/2019 4:43 PM FINDINGS: Lungs: Prominent bronchovascular markings right lower lobe are are. No consolidation. Pleural space: Unremarkable. No pleural effusion. No pneumothorax. Heart/Mediastinum: Unremarkable. No cardiomegaly. Bones/joints: Unremarkable. XR/XR chest 1V portable [id number] IMPRESSION: 1. Prominent bronchovascular markings right lower lobe 2. Otherwise No acute findings.
--- NOTE | 2020-01-30 16:08 | CTR_ITS ---
PROCEDURE INFORMATION: Exam: CT Head Without Contrast Exam date and time: 01/30/2020 4:25 PM Age: 54 years old Clinical indication: Altered mental status/memory loss; Confusion or disorientation; Patient HX: Ams/confusion/lethargy TECHNIQUE: Imaging protocol: Computed tomography of the head without contrast. Radiation optimization: All CT scans at this facility use at least one of these dose optimization techniques: automated exposure control; mA and/or kV adjustment per patient size (includes targeted exams where dose is matched to clinical indication); or iterative reconstruction. COMPARISON: CT head wo con* [id number] 03/27/2019 5:07 PM RADIATION DOSE METRICS: Total DLP (mGy-cm): 736.03 FINDINGS: Brain: Normal. No hemorrhage. Unremarkable white matter. No mass effect. Cerebral ventricles: There is cavum septum pellucidum and vergae. Ventricles are within normal limits of size. Bones/joints: Unremarkable. No acute fracture. Paranasal sinuses: There is mucous retention cyst in the left maxillary antrum and small amount of mucosal thickening in the right maxillary sinus. Mastoid air cells: Visualized mastoid air cells are well aerated. Soft tissues: Unremarkable. CT/CT head wo con* [id number] IMPRESSION: No acute intracranial finding. No significant change from 03/27/2019. Radiation Dose CTDIVOL = (mGy): DLP = 736.03 (mGy-cm)
--- NOTE | 2020-01-30 16:10 | ECG_ITS ---
[facility] Test Date: 2020-01-30 Pat Name: Felisa Medina Department: Room: Gender: Female Family Medicine Physician: : 1965 Requested By: Nico Chan I Order Number: [id number] Reading MD: CORRIE WADE Measurements Intervals Bryan Rate: 60 P: 66 CO: 191 QRS: -39 QRSD: 87 T: 54 QT: 418 QTc: 419 Interpretive Statements SINUS RHYTHM LOW QRS VOLTAGE IN PRECORDIAL LEADS [QRS DEFLECTION < 1.0 mV IN CHEST LEADS] ANTERIOR MYOCARDIAL INFARCTION , PROBABLY OLD [40+ ms Q WAVE AND/OR ST/T ABNORMALITY IN V3/V4] INFERIOR MYOCARDIAL INFARCTION , OF INDETERMINATE AGE [40+ ms Q WAVE AND/OR ST/T ABNORMALITY IN II/aVF] Compared to ECG 03/07/2019 16:41:47 No significant changes Electronically Signed On 01-30-2020 19:58:26 CORRECTIONAL THERAPY TEACHER by CORRIE WADE [id number]
--- NOTE | 2020-01-30 16:11 | W.ED.AMS ---
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 proximal internal carotid artery which causes approximately 25% stenosis as measured according to the NASCET criteria. Right external carotid artery: No occlusion or stenosis of the origin. Right vertebral artery: No stenosis. No dissection or occlusion. Left common carotid artery: No stenosis. No dissection or occlusion. Left internal carotid artery: No stenosis of the extracranial segment. No dissection or occlusion. Left external carotid artery: No occlusion or stenosis of the origin. Left vertebral artery: No stenosis. No dissection or occlusion. Bones/joints: No acute fracture. Soft tissues: Normal. No significant soft tissue swelling. CT/CT angio headneck* [id number] IMPRESSION: Mild stenosis in the proximal right internal carotid artery as described. REFERENCES: NASCET CRITERIA. The degree of internal carotid artery stenosis is based on NASCET criteria. Normal is no stenosis. Mild is less than 50% stenosis. Moderate is 50-69% stenosis. Severe is 70% to 99% stenosis. Total occlusion is no detectable patent lumen. Radiation Dose CTDIVOL = (mGy): DLP = 2611.07~2611.07 (mGy-cm) Dictated By:Raymundo Mccormick Signed By:Eddie Mccormickigned Date/Time:01/30/201919 DD/ 18 EKG Data^: EKG 1: Attestation: I personally reviewed and interpreted this EKG as follows: EKG interpretation date: 01/30/20 EKG interpretation time: 16:08 Prior EKG tracings: available for review Interpretation: Normal sinus rhythm. Heart rate 60 bpm. Normal axis, no significant change from 03/07/2019 EKG 2: Attestation: I personally reviewed and interpreted this EKG as follows: EKG interpretation date: 01/30/20 EKG interpretation time: 18:07 Prior EKG tracings: available for review Interpretation: Sinus bradycardia. Heart rate 58 bpm. Right axis deviation. No ST changes. Discharge Plan Discharge Patient Disposition: Admitted As Inpatient Admit Provider: Lou Kurtz Clinical Impression: Altered mental status, Polypharmacy, Diabetes mellitus with hyperglycemia Condition: Stable Coding Level of Care Code ED Spot Washer for Chg Fwd Exam Comprehensive
--- NOTE | 2020-01-30 16:19 | PC.NURSE ---
XR performed at bedside.
[2020-01-30 16:20] LABS: Basophils % 0.4 %; Eosinophils # 0.3 10^3/uL (0.0-0.8); Eosinophils % 3.5 %; Hemoglobin 14.8 g/dL (11.5-15.3); Lymphocytes # 2.6 10^3/uL (0.8-4.8); Lymphocytes % 26.9 %; Mean Corpuscular HGB Conc 30.8 g/dL (30.0-36.0); Mean Corpuscular Hemoglobin 28.6 pg (28.0-34.0); Mean Corpuscular Volume 92.8 fL (81-99); Mean Platelet Volume 11.6 fL (7.4-10.4); Monocytes # 0.6 10^3/uL (0.2-0.9); Monocytes % 6.4 %; Neutrophils # 6.02 10^3/uL (1.8-7.7); Neutrophils % 62.6 %; Nucleated Red Blood Cells % 0 %; Platelet Count 252 10^3/cmm (130-400); Red Blood Count 5.17 10^6/uL (4.1-5.3); White Blood Count 9.6 10^3/uL (4.0-10.0)
--- NOTE | 2020-01-30 16:27 | PC.NURSE ---
Pt to CT
[2020-01-30 16:37] LABS: INR 0.97 (0.8-1.2)
[2020-01-30 16:38] LABS: Add Urine Microscopic? YES; Bilirubin Urine Neg (Negative); Blood Urine Neg (Negative); Glucose Urine UA 4+ (Normal); Ketones Urine Negative (Negative); Leukocyte Esterase Urine Negative (Negative); Nitrate Urine Negative (Negative); Protein Urine Trace (Negative); Specific Gravity, Urine 1.015 (1.005-1.030); Urine Appearance SL Hazy (CLEAR); Urine Color Yellow (Yellow); Urobilinogen Urine 1 mg/dL (Negative); pH Urine 5 (5-7)
[2020-01-30 16:45] LABS: Alanine Aminotransferase 13 U/L (0-33); Alkaline Phosphatase 78 IU/L (35-105); Anion Gap 14.5 (5-19); Aspartate Amino Transferase 12 U/L (0-32); Blood Urea Nitrogen 17 mg/dL (6-20); C Reactive Protein 9.5 mg/L (0.0-4.9); Calcium 9.1 mg/dL (8.5-10.5); Carbon Dioxide 26 mmol/L (22-29); Chloride 107 mmol/L (98-107); Creatine Phosphokinase 96 U/L (26-192); Globulin 2.3 g/dL (1.3-4.6); Glucose 271 mg/dL (65-115); Lipase 21 U/L (13-60); Osmolality Calculated 307 mOsm/kg (285-295); Potassium 4.5 mmol/L (3.5-5.1); Sodium 143 mmol/L (136-145); Total Bilirubin 0.2 mg/dL (0.15-1.2); Total Protein 6.3 g/dL (6.6-8.7); Troponin(5th) Baseline 7 ng/L (0-10)
[2020-01-30 16:46] LABS: Add Urine Culture? No; Amorphous Sediment Urine 2+ /hpf; Amphetamines Screen Urine Negative (Negative); Bacteria Urine TRACE /hpf; Barbiturates Screen Urine Negative (Negative); Benzodiazepines Screen Urine Negative (Negative); Cocaine Screen Urine Negative (Negative); Hyaline Casts Urine 0-4 /lpf; Opiate Screen Urine Positive (Negative); PCP Screen Urine Negative (Negative); Squamous Epithelial Cell Urine 0-4 /hpf (0-5); THC Screen Urine Negative (Negative); WBC Urine 0-4 /hpf (0-5)
[2020-01-30 17:22] LABS: Procalcitonin 0.11 ng/mL (0-0.5)
--- NOTE | 2020-01-30 18:10 | ECG_ITS ---
[facility] Test Date: 2020-01-30 Pat Name: Felisa Medina Department: Room: Gender: Female [employer]: : 1965 Requested By: Nico Chan I Order Number: [id number] Reading MD: CORRIE WADE Measurements Intervals [place] Rate: 58 P: -3 SD: 181 QRS: 94 QRSD: 79 T: 29 QT: 411 QTc: 405 Interpretive Statements SINUS BRADYCARDIA BORDERLINE RIGHT AXIS DEVIATION [QRS AXIS > 90] LOW QRS VOLTAGE IN PRECORDIAL LEADS [QRS DEFLECTION < 1.0 mV IN CHEST LEADS] ANTERIOR MYOCARDIAL INFARCTION , PROBABLY OLD [40+ ms Q WAVE AND/OR ST/T ABNORMALITY IN V3/V4] Compared to ECG 01/30/2020 16:07:49 Sinus rhythm no longer present Myocardial infarct finding still present Electronically Signed On 01-30-2020 20:06:16 PAN DEVULCANIZER HELPER by CORRIE WADE [id number]
--- NOTE | 2020-01-30 18:14 | CTR_ITS ---
PROCEDURE INFORMATION: Exam: CT Angiography Head With Contrast Exam date and time: 01/30/2020 6:44 PM Age: 54 years old Clinical indication: Cognitive deficit; Altered mental status; Patient HX: AMS TECHNIQUE: Imaging protocol: Computed tomography angiography of the head with intravenous contrast. 3D rendering (Not supervised by radiologist): MIP and/or 3D reconstructed images were created by the technologist. Radiation optimization: All CT scans at this facility use at least one of these dose optimization techniques: automated exposure control; mA and/or kV adjustment per patient size (includes targeted exams where dose is matched to clinical indication); or iterative reconstruction. Contrast material: OMNI 350; Contrast volume: 95 ml; Contrast route: INTRAVENOUS (IV); COMPARISON: CT head wo con* [id number] 01/30/2020 4:22 PM RADIATION DOSE METRICS: Total DLP (mGy-cm): 2611.07 FINDINGS: ANTERIOR CIRCULATION: Right internal carotid artery: Unremarkable. Intracranial segment is patent with no significant stenosis. No aneurysm. Right middle cerebral artery: Unremarkable. No occlusion or significant stenosis. No aneurysm. Right anterior cerebral artery: Unremarkable. No occlusion or significant stenosis. No aneurysm. Left internal carotid artery: Unremarkable. Intracranial segment is patent with no significant stenosis. No aneurysm. Left middle cerebral artery: Unremarkable. No occlusion or significant stenosis. No aneurysm. Left anterior cerebral artery: Unremarkable. No occlusion or significant stenosis. No aneurysm. POSTERIOR CIRCULATION: Right vertebral artery: Unremarkable. No occlusion or significant stenosis. No aneurysm. Left vertebral artery: Unremarkable. No occlusion or significant stenosis. No aneurysm. Basilar artery: Unremarkable. No occlusion or significant stenosis. No aneurysm. Right posterior cerebral artery: Unremarkable. No occlusion or significant stenosis. No aneurysm. Left posterior cerebral artery: Unremarkable. No occlusion or significant stenosis. No aneurysm. Brain: No definite mass, mass effect, or midline shift. Cerebral ventricles: No ventriculomegaly. Bones/joints: Unremarkable. No acute fracture. Soft tissues: Unremarkable. IMPRESSION: No large vessel stenosis or occlusion. PROCEDURE INFORMATION: Exam: CT Angiography Neck With Contrast Exam date and time: 01/30/2020 6:44 PM Age: 54 years old Clinical indication: Cognitive deficit; Altered mental status; Patient HX: AMS TECHNIQUE: Imaging protocol: Computed tomography angiography of the neck with intravenous contrast. 3D rendering (Not supervised by radiologist): MIP and/or 3D reconstructed images were created by the technologist. Radiation optimization: All CT scans at this facility use at least one of these dose optimization techniques: automated exposure control; mA and/or kV adjustment per patient size (includes targeted exams where dose is matched to clinical indication); or iterative reconstruction. Contrast material: OMNI 350; Contrast volume: 95 ml; Contrast route: INTRAVENOUS (IV); COMPARISON: CT head wo con* [id number] 01/30/2020 4:22 PM RADIATION DOSE METRICS: Total DLP (mGy-cm): 2611.07 FINDINGS: Right common carotid artery: No stenosis. No dissection or occlusion. Right internal carotid artery: There is some focal atherosclerotic calcified plaque in the right carotid bulb and proximal internal carotid artery which causes approximately 25% stenosis as measured according to the NASCET criteria. Right external carotid artery: No occlusion or stenosis of the origin. Right vertebral artery: No stenosis. No dissection or occlusion. Left common carotid artery: No stenosis. No dissection or occlusion. Left internal carotid artery: No stenosis of the extracranial segment. No dissection or occlusion. Left external carotid artery: No occlusion or stenosis of the origin. Left vertebral artery: No stenosis. No dissection or occlusion. Bones/joints: No acute fracture. Soft tissues: Normal. No significant soft tissue swelling. CT/CT angio headneck* [id number] IMPRESSION: Mild stenosis in the proximal right internal carotid artery as described. REFERENCES: NASCET CRITERIA. The degree of internal carotid artery stenosis is based on NASCET criteria. Normal is no stenosis. Mild is less than 50% stenosis. Moderate is 50-69% stenosis. Severe is 70% to 99% stenosis. Total occlusion is no detectable patent lumen. Radiation Dose CTDIVOL = (mGy): DLP = 2611.07~2611.07 (mGy-cm)
[2020-01-30 18:45] LABS: Troponin 5 2HR 7.74 ng/L (0-10); Troponin 5 2HR Delta 0.74 ABS# (0-10)
[2020-01-30] MEDS: iohexol 350 mg/mL 100 mL Btl IV (18:56)
--- NOTE | 2020-01-30 19:58 | PC.NURSE ---
Called to obtain verbal consent for lumbar puncture since patient is not responsive. gave his consent for us to do the procedure.
[2020-01-30 20:18] LABS: SARS Covid-2 Antigen Negative (Negative)
[2020-01-30 21:22] LABS: Mononuclear WBC CSF % 0 % (50-90); Polynuclear Cells ,CSF # 0.001 10^3/uL (0-10); Polynuclear WBC CSF % 100 % (0-10); Red Blood Cell CSF 1 10^3/uL (0-0); White Blood Cell CSF 1 /uL (0-5)
[2020-01-30 21:45] LABS: Glucose CSF 155 mg/dL (40-70); Total Protein CSF 48 mg/dL (15-45)
[2020-01-30 22:34] LABS: Appearance CSF CLEAR (CLEAR)
[2020-01-30 22:35] LABS: Color CSF COLORLESS (COLORLESS)
[2020-01-30 23:19] LABS: Glucose Point of Care 167 mg/dL (70-110)
[2020-01-31] VITALS (14 sets, daily range): BP systolic 107–157; BP diastolic 70–97; PULSE 63–98; RESP 14–22; TEMP 36.4–37.2; O2SAT 95–98
--- NOTE | 2020-01-31 00:02 | PM.HP ---
Providers/Chief Complaint Admitting Physician: Lou Kurtz MD Primary Care Provider: RACQUEL Andrews-C Chief Complaint: AMS History of Present Illness Felisa Medina is a 54 year old female with a past medical history of insulin-dependent type 2 diabetes mellitus, hypertension, hyperlipidemia, CAD, systolic heart failure, insomnia, back pain, on chronic opiates, depression and anxiety, juvenile epilepsywho was brought to the ER due to aletred mental status that started this mornign at 11 am. Family is not currently at bedside, history is obtained by talking to Dr. Chan. Per report, patient was noted to be more somnolent and behaving erratically this mornign while driving. Therefater during the day she became more confused and somnolent. She had subjective fever 2 days ago, however has not been measured. She manages her medicatiosn by herself and family felt it possible that she mis timed some medications or accidentally taken extra pills. Patient is unable to provide any history due t being obtunded at this time. She had presented similary in March 2019 and was thought to have AMS as a result of polypharmacy, which improved with changing medications. SHe has been following with pain management clinic as an outpatient. Review of Systems General: Reports: ROS unobtainable due to medical condition and ROS unobtainable due to mental status Medications/Allergies Home Medications Medication Instructions Recorded Confirmed Last Taken Type Oxygen 2 L #1 ea 11/25/19 01/30/20 Unknown Rx albuterol sulfate 90 mcg/actuation 2 puff INHALATION QID #1 gm 11/25/19 01/30/20 Unknown Rx aerosol inhaler amlodipine 2.5 mg tablet 2.5 mg PO DAILY #30 tab 11/25/19 01/30/20 Unknown Rx dapagliflozin 10 mg tablet 10 mg PO DAILY #30 tab 11/25/19 01/30/20 Unknown Rx duloxetine 30 mg capsule,delayed 30 mg PO DAILY #30 cap 11/25/19 01/30/20 Unknown Rx release duloxetine 60 mg capsule,delayed 60 mg PO DAILY #30 cap 11/25/19 01/30/20 Unknown Rx release ergocalciferol (vitamin D2) 1,250 50,000 unit PO .weekly #4 cap 11/25/19 01/30/20 Unknown Rx mcg (50,000 unit) capsule exenatide microspheres 2 mg/0.65 2 mg SUBCUT Q7D #4 each 11/25/19 01/30/20 Unknown Rx mL subcutaneous pen injector insulin aspart U-100 100 unit/mL 100 unit SUBCUT TID 30 Days #90 ml 11/25/19 01/30/20 Unknown Rx (3 mL) subcutaneous pen insulin detemir U-100 100 unit/mL 100 unit SUBCUT BID 30 Days #60 ml 11/25/19 01/30/20 Unknown Rx (3 mL) subcutaneous pen lisinopril 40 mg tablet 40 mg PO DAILY #30 tab 11/25/19 01/30/20 Unknown Rx lubiprostone 24 mcg capsule 24 mcg PO BID #60 cap 11/25/19 01/30/20 Unknown Rx metoprolol tartrate 50 mg tablet 50 mg PO BID #60 tab 11/25/19 01/30/20 Unknown Rx pantoprazole 40 mg tablet,delayed 40 mg PO DAILY #30 tab 11/25/19 01/30/20 Unknown Rx release rosuvastatin 20 mg tablet 20 mg PO DAILY #30 tab 11/25/19 01/30/20 Unknown Rx topiramate 100 mg tablet 100 mg PO BID #60 tab 11/25/19 01/30/20 Unknown Rx zaleplon 10 mg capsule 10 mg PO BEDTIME #30 cap 11/25/19 01/30/20 Unknown Rx zonisamide 100 mg capsule 200 mg PO BID #120 cap 11/25/19 01/30/20 Unknown Rx isosorbide mononitrate 30 mg 30 mg PO DAILY #30 tab 11/27/19 01/30/20 Unknown Rx tablet,extended release 24 hr baclofen 20 mg tablet 20 mg PO TID PRN 30 Days #90 tab 12/04/19 01/30/20 Unknown Rx furosemide 20 mg tablet 20 mg PO QAM #30 tab 12/11/19 01/30/20 Unknown Rx blood sugar diagnostic #120 each 01/16/20 01/30/20 Unknown Rx hydralazine 10 mg tablet 10 mg PO BID #60 tab 01/16/20 01/30/20 Unknown Rx morphine 30 mg immediate release 30 mg PO Q12H PRN 30 Days #60 tab 01/22/20 01/30/20 Unknown Rx tablet pregabalin 300 mg capsule 300 mg PO BID 30 Days #60 cap 01/22/20 01/30/20 Unknown Rx Probiotic 1 tab PO DAILY 01/30/20 01/30/20 Unknown History nystatin 100,000 unit/gram topical 1 applic TOPICAL BID #30 g 01/30/20 Unknown Rx cream Allergies Allergy/AdvReac Type Severity Reaction Status Date / Time simvastatin Allergy Unknown Unknown Verified 01/22/20 13:17 aspirin Allergy ALGY-Hives Verified 01/22/20 13:17 calcium carbonate Allergy rash Verified 01/22/20 13:17 [From [place] (aspirin)] magnesium Allergy rash Verified 01/22/20 13:17 [From [place] (aspirin)] PFSH Acute PFSH: Medical History CAD (coronary artery disease) Chronic arthritis Chronic back pain Chronic prescription opiate use Patient will discuss with her pain management physician about stopping medications or de-escalating medications Diabetes DM type 2, uncontrolled, with neuropathy Encounter for long-term opiate analgesic use Fibromyalgia Frequent falls GERD (gastroesophageal reflux disease) Hyperlipidemia Hypertension Insomnia Juvenile epilepsy Left knee pain Lumbar pain with radiation down leg Obesity, morbid, BMI 40.0-49.9 Syncope Systolic heart failure Therapeutic opioid induced constipation Type 2 diabetes mellitus Vitamin D deficiency Surgical History Previous section Family History Other CAD (coronary artery disease) Diabetes Social History Smoking and tobacco status: never smoked Second hand smoke exposure: No Smoking risk assessment/counseling performed?: No Alcohol intake: never Desire information about alcohol rehabilitation?: No Counseling given: No Desire information about substance/drug rehabilitation?: No Counseling given: No Adopted: No Caregiver/support person: No Lives independently: Yes Household members: spouse Housing: House Marital status: Number of children: 3 service: No Current occupational status: unemployed History of recent travel: No Current gender identity: Female Vitals/I&O/Wt Last Vital Signs Temp 97.6 F 01/30/20 22:00 Pulse 73 01/30/20 22:00 Resp 17 01/30/20 22:00 BP 119/79 01/30/20 22:00 Pulse Ox 99 01/30/20 22:00 Weight last 48 hrs Weight 122.47 kg Physical Exam Narrative: EXAM NARRATIVE: GEN: Somlonent, obtuneded, wakes up to calling name and tells me her correct name, however states she is about 69 years old , does not know where she is HEENT: NC/AT , pupils B/L NS NR, not pinpoint RS: CTA B/L anteriorly CVS: S1S2 N RS: CTA B/L Abd: Soft, nt/nd , bs+ SHIPPING COORDINATOR: moves extremities in bed though not to command Urinary Catheter Management^: Saunders: Cath Placed During This Visit: yes Reason for Continuing Indwelling Catheter: Other Urinary Catheter Date of Insertion: 01/30/20 Urinary Catheter Time of Insertion: 22:07 Data : 01/30/20 16:05 01/30/20 16:05 Micro: Microbiology 01/30/20 16:05 Blood Culture - Preliminary Blood SPECIMEN COLLECTED 01/30/20 16:05 Blood Culture - Preliminary Blood SPECIMEN COLLECTED A&P Assessment and plan (1) Altered mental status: Patient p/w aletered mental status starting earlier this morning - CT head and CTA head and neck without significant findings - Urine opiate screen + - h/o fever 2 days ago no fever noted in the ER, Cobid Ag negative, LP perfromed- findings not s/o meningitis, elevated glu, normal protein, cell count 1 - UA without signs of UTI, no leukocytosis , blood cx pending, doubt sepsis , montior off abx -no hypo or hyperglycemia on labs -TSH within range -no reported seizures, therefore less likely to be post ictal -troponin series without significant delta - morbidly obese, short neck, may have sleep apnea vs COPD- check ABG to evaluate for hypercapnea AMS may be related to polypharmcy and multiple medications. For now, hold baclofen, reduce duloxetine to 30mg per day, hold morphine, hold pregabalin, hole zalepon Continue topiramate and zonisamide for seizures Monitor for improvement with above interventions, trial of narcan if ABG returns without hypercapnea Status: Acute Qualifiers: Altered mental status type: somnolence Qualified Code(s): R40.0 - Somnolence (2) Polypharmacy: Status: Acute (3) Obesity, morbid, BMI 40.0-49.9: Status: Acute (4) DM type 2, uncontrolled, with neuropathy: Insulin sliding scale for now Status: Chronic Additional A&P Information DVT ppx: holding lovenox for now as just had LP, SCDs for now Full code Attestations Medical Necessity Statement*: anticipate >2midnight admission for evaluation and management of AMS, titration of multiple sedating medications Coding Level of Care Code Acute Insurance Consultant for g Fwd Diagnoses Altered mental status R40.0 Altered mental status type: somnolence Polypharmacy Z79.899 Obesity, morbid, BMI 40.0-49.9 E66.01 DM type 2, uncontrolled, with neuropathy E11.40; E11.65
[2020-01-31 01:50] LABS: ABG PH Result 7.26 (7.35-7.45); Arterial Blood Gas Hematocrit 45.4 % (37-47); Base Excess ABG -1.3 mmol/L (-2.0-2.0); Blood Gas Allen Test Pos; Blood Gas Operator Identificat JB; Blood Gas Sample Site Radial, right; Blood Gas Sample Type Arterial; HCO3 ABG 27.2 mmol/L (22-26); Oxygen Device NC; PO2 ABG 79.7 mmHg (80.0-100.0)
[2020-01-31 01:51] LABS: ABG PCO2 60.2 mmHg (35-45)
[2020-01-31 02:12] LABS: NT Pro B Type Natriuretic Pept 123 pg/mL (0-125)
[2020-01-31 05:58] LABS: ABG PCO2 56.2 mmHg (35-45); ABG PH Result 7.28 (7.35-7.45); Arterial Blood Gas Hematocrit 45.5 % (37-47); Base Excess ABG -1.4 mmol/L (-2.0-2.0); Blood Gas Allen Test Pos; Blood Gas Operator Identificat JB; Blood Gas Sample Site Radial, right; Blood Gas Sample Type Arterial; HCO3 ABG 26.5 mmol/L (22-26); Oxygen Device NC; PO2 ABG 92.6 mmHg (80.0-100.0)
[2020-01-31 06:27] LABS: Glucose Point of Care 142 mg/dL (70-110)
[2020-01-31] MEDS: FUROsemide 20 mg Tablet PO (06:39)
[2020-01-31] MEDS: atorvastatin 40 mg Tablet 80 MG PO (09:06)
[2020-01-31] MEDS: pantoprazole DR 40 mg Tablet PO (09:06)
[2020-01-31] MEDS: zonisamide 100 MG Capsule 200 MG PO ×2 (09:06→17:01)
[2020-01-31] MEDS: nystatin cream 30 gm 1 APPLIC TOPICAL ×2 (09:06→17:02)
[2020-01-31] MEDS: topiramate 100 mg Tablet PO ×2 (09:06→17:01)
[2020-01-31] MEDS: duloxetine 30 mg Capsule PO (09:06)
[2020-01-31] MEDS: metoprolol tartrate 50 mg Tablet PO ×2 (09:06→17:01)
[2020-01-31 10:55] LABS: Glucose Point of Care 145 mg/dL (70-110)
--- NOTE | 2020-01-31 12:17 | P.PN_ITS ---
Subjective Subjective: Interval history: Chart reviewed, had been admitted in March for similar presentation attributed to polypharmacy and chronic opiate use. It seems that her mental status improved with BiPAP use. Currently off BiPAP, she is able to tell me that she is in [place], and is aware that she is in the hospital. States that she was brought here by her because she has been sick but unable to provide further details. She is unable to tell me her birthdate, month or answer any further orientation questions. She appears quite weak during strength testing. Reports that she ambulates independently at home but has not been falling frequently. Patient's permission I called her who states that changes in her mental status have been noticeable only the past 1 to 2 days. Prior to this she was her usual self and she does have some intermittent forgetfulness such as calling their daughter by a different name. Otherwise she is typically alert and oriented and fairly independent. He does confirm that she has had some falls at home though he attributes this to her getting up too quickly and he thinks that she may have some dizziness from Cymbalta. Denies any recent medication changes, prior episode of the same, known exposure to known COVID-19 positive individuals. She has not had any episodes of incontinence or seizure-like activity that he has witnessed. Medications: Reviewed: Yes Medication Review Details: Active Medications Generic Name Dose Route Start Last Admin Trade Name Freq PRN Reason Stop Dose Admin Acetaminophen 650 mg 01/30/20 23:53 Acetaminophen 32 5 Mg Tablet PO Q6H PRN Mild/Mod Pain Or Temp >/= 101 Albuterol Sulfate 2.5 mg 01/30/20 23:58 01/31/20 08:38 Albuterol 2.5 Mg /0.5 Ml Neb INHALATION 2.5 mg Q4H.RESPIRATORY P RN Administration SHORTNESS OF TIFFANY TH Atorvastatin Calci um 80 mg 01/31/20 09:00 01/31/20 09:06 Atorvastatin 40 Mg Tablet PO 80 mg DAILY KELLEN Administration Dextrose 25 ml 01/31/20 00:01 Dextrose 50% Syr jessica 50 Ml IVP ONCE PRN hypoglycemia prot ocol Protocol Dextrose 50 ml 01/31/20 00:01 Dextrose 50% Syr jessica 50 Ml IVP PRN PRN hypoglycemia prot ocol Protocol Duloxetine HCl 30 mg 01/31/20 09:00 01/31/20 09:06 Duloxetine 30 Mg Capsule PO 30 mg DAILY KELLEN Administration Furosemide 20 mg 01/31/20 06:00 01/31/20 06:39 Furosemide 20 Mg Tablet PO 20 mg QAM KELLEN Administration Glucagon 1 mg 01/31/20 00:01 Glucagon 1 Mg/Ml Inj 1 Ml IM ONCE PRN Adult Acute Hypog lycemia Prot. Protocol Dextrose 500 mls @ 100 mls /hr 01/31/20 00:01 D5w IV ONCE PRN Adult Acute Hypog lycemia Prot Protocol Insulin Aspart 0 unit 01/31/20 08:00 01/31/20 11:11 Insulin Aspart 1 00 Unit/1 Ml SUBCUT Not Given WM&BEDTIME KELLEN Protocol Metoprolol Tartrat e 50 mg 01/31/20 09:00 01/31/20 09:06 Metoprolol Tartr ate 50 Mg Tablet PO 50 mg BID KELLEN Administration Nystatin 1 applic 01/31/20 09:00 01/31/20 09:06 Nystatin Cream 3 0 Gm TOPICAL 1 applic BID KELLEN Administration Ondansetron HCl 4 mg 01/30/20 23:53 Ondansetron 2 Mg /Ml Sdv 2 Ml IVP Q8H PRN vomiting, or N/V if npo Pantoprazole Sodiu m 40 mg 01/31/20 09:00 01/31/20 09:[address] 40 Mg Tablet PO 40 mg DAILY KELLEN Administration Topiramate 100 mg 01/31/20 09:00 01/31/20 09:06 Topiramate 100 M g Tablet PO 100 mg BID KELLEN Administration Zonisamide 200 mg 01/31/20 09:00 01/31/20 09:06 Zonisamide 100 M g Capsule PO 200 mg BID KELLEN Administration simvastatin Allergy (Unknown, Verified 01/22/20 13:17) Unknown aspirin Allergy (Verified 01/22/20 13:17) ALGY-Hives calcium carbonate [From [place] (aspirin)] Allergy (Verified 01/22/20 13:17) rash magnesium [From [place] (aspirin)] Allergy (Verified 01/22/20 13:17) rash Vitals/I&O/Wt Last Vital Signs Temp 98.7 F 01/31/20 11:32 Pulse 73 01/31/20 11:32 Resp 18 01/31/20 11:32 BP 129/71 01/31/20 11:32 Pulse Ox 97 01/31/20 10:17 01/30/20 01/31/20 01/31/20 22:59 06:59 14:59 Output Total 1400 / 1400 Balance -1400 / -1400 Weight last 48 hrs Weight 122.47 kg Physical Exam Const: COMMON NORMALS: no acute distress and alert GENERAL APPEARANCE: cooperative and comfortable NUTRITIONAL APPEARANCE: obese morbidly obese ORIENTATION/CONSCIOUSNESS: Yes awake and Yes oriented to place; not oriented to person and not oriented to time HENMT: COMMON NORMALS: normocephalic, atraumatic, hearing grossly normal bilaterally and moist oral mucous membranes HEAD & SCALP: normocephalic and atraumatic Eye: COMMON NORMALS: Equal, round and reactive pupils present, EOMs intact bilaterally and conjunctivae normal CONJUNCTIVA: Yes conjunctivae normal PUPIL: Yes Equal, round and reactive pupils present Neck/C-Spine: COMMON NORMALS: full ROM GENERAL: Yes normal visual inspection and Yes trachea midline Resp: COMMON NORMALS: normal respiratory effort, No retractions, No use of accessory muscles and clear to auscultation bilaterally EFFORT & INSPECTION: Yes able to speak in complete sentences, Yes symmetric chest movement and No tachypneic AUSCULTATION: clear to auscultation bilaterally OTHER: -on RA Cardio: COMMON NORMALS: regular rate, regular rhythm, S1 normal heart sound present, S2 normal heart sound present and No murmurs present (Cardio) RATE: regular rate RHYTHM: regular rhythm HEART SOUNDS: S1 normal heart sound present and S2 normal heart sound present GI: COMMON NORMALS: Normal to inspection, nondistended, normoactive bowel sounds present, Soft to palpation and non-tender INSPECTION: Yes central obesity PALPATION: Yes Soft to palpation Extremity: COMMON NORMALS: normal to inspection, full ROM, no clubbing, cyanosis or edema and no pedal edema Neuro: COMMON NORMALS: moves all extremities, no focal motor deficits and no sensory deficits noted SENSORIUM/ORIENTATION: Yes alert, No oriented to person, Yes oriented to place and No oriented to time SPEECH: speech normal MOTOR EXAM: Pronator motor function not present and Normal motor muscle tone present throughout OTHER: -quite weak Psych: COMMON NORMALS: mental status grossly normal, Normal thought process present, cooperative and speech normal SPEECH: Yes normal speech MOOD & AFFECT: Yes Flat affect present THOUGHT PROCESS: Normal thought process present ATTENTION/CONCENTRATION: Yes attention grossly intact and Yes concentration grossly impaired MEMORY/COGNITION: Yes memory grossly impaired INSIGHT: Limited insight present (Psych) Skin: COMMON NORMALS: no rashes or lesions noted, no jaundice, no petechiae and no mottling GENERAL SKIN EXAM: no rashes or lesions noted Urinary Catheter Management^: Saunders: Cath Placed During This Visit: yes, but has since been removed by the nurse Reason for Continuing Indwelling Catheter: Decision to DC Catheter Urinary Catheter Date of Insertion: 01/30/20 Urinary Catheter Time of Insertion: 22:07 Date Urinary Catheter Removed: 01/31/20 Time Urinary Catheter Discontinued: 05:30 Data : 01/30/20 16:05 01/30/20 16:05 Micro: Microbiology 01/30/20 21:02 Gram Stain - Final Cerebrospinal Fluid 01/30/20 16:05 Blood Culture - Preliminary Blood SPECIMEN COLLECTED 01/30/20 16:05 Blood Culture - Preliminary Blood SPECIMEN COLLECTED A&P Assessment and plan (1) Altered mental status: -infectious workup negative including LP; gram stain negative, CSF culture pending, blood cx pending -afebrile, no leukocytosis, VSS -continue to monitor vital signs -noted to be hypercapnic which appears to be chronic -improved mental status with BiPAP use -fall precautions -no apparent seizure-like activity; on AEDs -noted imaging -PT/OT/ST evaluations Status: Acute Qualifiers: Altered mental status type: somnolence Qualified Code(s): R40.0 - Somnolence (2) Polypharmacy: -noted to be on chronic opiates, muscle relaxants, neuropathic agents, AEDs -hold opiates, baclofen, zaleplon -modified doses of duloxetine Status: Acute (3) Diabetes mellitus with hyperglycemia: -A1c-8.5 (09/2019) -Accucheks, ISS, hypoglycemia precautions -hold scheduled insulin as currently NPO -hold oral agents, exenatide -no evidence of hypoglycemia -complicated by neuropathy Status: Chronic Qualifiers: Diabetes mellitus computer terminal operator insulin use: with skilled nursing use Diabetes me llitus type: type 2 Qualified Code(s): E11.65 - Type 2 diabetes mellitus with hyperglycemia; Z79.4 - senior care (current) use of insulin (4) CAD (coronary artery disease): -continue meds Status: Chronic Qualifiers: Coronary Disease-Associated Artery/Lesion type: [place] artery [place] vs. transplanted heart: [place] heart Associated angina: angina presence unspecified Qualified Code(s): I25.10 - Atherosclerotic heart disease of [place] coronary artery without angina pectoris (5) GERD (gastroesophageal reflux disease): -continue PPI Status: Chronic Qualifiers: Esophagitis presence: without esophagitis Qualified Code(s): K21.9 - Gastro-esophageal reflux disease without esophagitis (6) Hyperlipidemia: -continue statin Status: Chronic Qualifiers: Hyperlipidemia type: mixed hyperlipidemia Qualified Code(s): E78.2 - Mixed hyperlipidemia (7) Hypertension: -VSS; continue to monitor -continue oral antihypertensives Status: Chronic Qualifiers: Hypertension type: essential hypertension Qualified Code(s): I10 - Essential (primary) hypertension (8) Obesity, morbid, BMI 40.0-49.9: -BMI-40 kg/m2 Status: Chronic Additional A&P Information -Chronic HFpEF: Echo (03/2019): EF=60%, no RWMA, trace TR, trace CT -Chronic pain, OA, fibromyalgia; on chronic opiates; follows up with Dr. Colon -hx of juvenile epilepsy; on AEDs -Chronic nocturnal hypoxemia; on 2 L qhs -initiate PO intake once mental status appropriate -GI ppx with PPI -DVT ppx with SCDs -Dispo: home; updated Rosendo Medina ([phone]) -Code status: FULL code Attestations Medical Necessity Statement*: Patient requires hospitalization for continued monitoring of mental status, pending improvement, PO tolerance. Time Spent in Patient Care: 16 - 35 minutes (>than 50% of time spent in counselling and/or direct pt care on unit) . Coding Level of Care Code Acute Typing Section Chief for Chg Fwd Diagnoses Altered mental status R40.0 Altered mental status type: somnolence Polypharmacy Z79.899 Diabetes mellitus with hyperglycemia E11.65; Z79.4 Diabetes mellitus skilled nursing insulin use: with skilled nursing use Diabetes mellitus type: type 2 CAD (coronary artery disease) I25.10 Coronary Disease-Associated Artery/Lesion type: [place] artery [place] vs. transplanted heart: [place] heart Associated angina: angina presence unspecified GERD (gastroesophageal reflux disease) K21.9 Esophagitis presence: without esophagitis Hyperlipidemia E78.2 Hyperlipidemia type: mixed hyperlipidemia Hypertension I10 Hypertension type: essential hypertension Obesity, morbid, BMI 40.0-49.9 E66.01
--- NOTE | 2020-01-31 12:49 | PC.NURSE ---
Patient offered shower while in bathroom to void. Patient refused. I explained to patient that he had some bedbugs that we needed to treat and a shower is is the first part of treatment. Patient refused again and went to lay back down in bed.
--- NOTE | 2020-01-31 18:10 | PC.PT ---
PT note; attempted PT evaluation at this time, patient received phone call, and began crying that she cannot go home today, unable to complete evaluation at this time; patient transferring independently without difficulty per nursing and ancillary staff, but unable to get physical therapy evaluation at this time, will reattempt tomorrow.
[2020-01-31 21:04] LABS: Glucose Point of Care 142 mg/dL (70-110)
[2020-02-01] VITALS: BP 126/74; PULSE 63; RESP 18; TEMP 36.6; O2SAT 96
[2020-02-01 04:00] VITALS: BP 134/76; PULSE 67; RESP 18; TEMP 36.4; O2SAT 96
[2020-02-01 05:39] LABS: Vitamin B12 288 pg/mL (232-1245)
[2020-02-01] MEDS: FUROsemide 20 mg Tablet PO (06:16)
[2020-02-01 06:43] LABS: Glucose Point of Care 157 mg/dL (70-110)
[2020-02-01 06:51] LABS: Folate Level > 20.0 ng/mL (4.8-37.3)
[2020-02-01 07:14] VITALS: BP 153/72; PULSE 68; RESP 16; TEMP 36.7; O2SAT 95
[2020-02-01 08:15] VITALS: PULSE 64; RESP 17; O2SAT 98
[2020-02-01] MEDS: zonisamide 100 MG Capsule 200 MG PO (08:52)
[2020-02-01] MEDS: topiramate 100 mg Tablet PO (08:52)
[2020-02-01] MEDS: metoprolol tartrate 50 mg Tablet PO (08:52)
[2020-02-01] MEDS: atorvastatin 40 mg Tablet 80 MG PO (08:52)
[2020-02-01] MEDS: nystatin cream 30 gm 1 APPLIC TOPICAL (08:53)
[2020-02-01] MEDS: pantoprazole DR 40 mg Tablet PO (08:53)
[2020-02-01] MEDS: duloxetine 30 mg Capsule PO (08:53)
[2020-02-01 11:08] LABS: Glucose Point of Care 225 mg/dL (70-110)
[2020-02-01 11:21] VITALS: BP 178/82; PULSE 68; RESP 17; TEMP 36.8; O2SAT 96
--- NOTE | 2020-02-01 11:34 | PC.NURSE ---
Patient spouse here to sign patient out AMA, patient in agreement, Dr. Tim notified, IV discontinued belongings sent with patient including clothes and shoes.
[2020-02-01 11:35] VITALS: BP 178/82; PULSE 68; RESP 17; TEMP 36.8; O2SAT 96
--- NOTE | 2020-02-01 11:52 | PC.OT ---
OT ATTEMPTED TO SEE PATIENT BEFORE LUNCH HOWEVER PATIENT HAD BEEN DISCHARGED AMA.
--- NOTE | 2020-02-01 13:39 | PM.DCS ---
Discharge Providers Date of Admission: 01/30/20 21:24 Date of Discharge: February 01, 2020 Attending Provider at Admission: Lou Kurtz MD Attending Provider at Discharge: Nuris Tim MD Consults: None Primary Care Provider: HARJINDER Andrews Diagnoses at Discharge Discharge Diagnosis (1) Altered mental status: Status: Acute Permanent problem details: -infectious workup negative including LP; gram stain negative, CSF culture pending, blood cx pending -afebrile, no leukocytosis, VSS -continue to monitor vital signs -noted to be hypercapnic which appears to be chronic -improved mental status with BiPAP use -fall precautions -no apparent seizure-like activity; on AEDs -noted imaging -PT/OT/ST evaluations Qualifiers: Altered mental status type: somnolence Qualified Code(s): R40.0 - Somnolence (2) Polypharmacy: Status: Acute Permanent problem details: -noted to be on chronic opiates, muscle relaxants, neuropathic agents, AEDs -hold opiates, baclofen, zaleplon -modified doses of duloxetine (3) Diabetes mellitus with hyperglycemia: Status: Chronic Qualifiers: Diabetes mellitus halfway insulin use: with halfway use Diabetes mellitus type: type 2 Qualified Code(s): E11.65 - Type 2 diabetes mellitus with hyperglycemia; Z79.4 - long term care social worker (current) use of insulin (4) CAD (coronary artery disease): Status: Chronic Qualifiers: Coronary Disease-Associated Artery/Lesion type: [place] artery [place] vs. transplanted heart: [place] heart Associated angina: angina presence unspecified Qualified Code(s): I25.10 - Atherosclerotic heart disease of [place] coronary artery without angina pectoris (5) GERD (gastroesophageal reflux disease): Status: Chronic Qualifiers: Esophagitis presence: without esophagitis Qualified Code(s): K21.9 - Gastro-esophageal reflux disease without esophagitis (6) Hyperlipidemia: Status: Chronic Qualifiers: Hyperlipidemia type: mixed hyperlipidemia Qualified Code(s): E78.2 - Mixed hyperlipidemia (7) Hypertension: Status: Chronic Qualifiers: Hypertension type: essential hypertension Qualified Code(s): I10 - Essential (primary) hypertension (8) Obesity, morbid, BMI 40.0-49.9: Status: Chronic Other Information Additional DC diagnoses/information: -Chronic HFpEF: Echo (03/2019): EF=60%, no RWMA, trace TR, trace [place] -Chronic pain, OA, fibromyalgia; on chronic opiates; follows up with Dr. Colon -hx of juvenile epilepsy; on AEDs -Chronic nocturnal hypoxemia; on 2 L qhs Reason for Visit Reason for Visit: AMS Hospital Course Hospital Course Patient had been admitted to the medical surgical floor and had further work-up done due to having presented with altered mental status including lumbar puncture which was not indicative of meningitis. Mental status improved slightly but she remained confused with inability to determine where she is, give her date of or current month. Some degree of her altered mentation is likely secondary to polypharmacy as she is on chronic opiates, benzodiazepines, neuropathic agents, muscle relaxants and antiepileptic medications. Most of these were held with exception of her antiseizure medications and modified dose of duloxetine. I had spoken with yesterday to obtain additional history and updated him on patient's clinical status. However earlier this morning patient informed nursing staff that she would like to go home, AGAINST MEDICAL ADVICE. Given her mental status she is unable to make this decision unilaterally so contacted and opted to take her home even though it would be AGAINST MEDICAL ADVICE. She left without being seen by this provider. Physical Exam Narrative: EXAM NARRATIVE: -examination is from encounter yesterday Const: COMMON NORMALS: no acute distress and alert GENERAL APPEARANCE: cooperative and comfortable NUTRITIONAL APPEARANCE: obese morbidly obese ORIENTATION/CONSCIOUSNESS: Yes awake and Yes oriented to place; not oriented to person and not oriented to time HENMT: COMMON NORMALS: normocephalic, atraumatic, hearing grossly normal bilaterally and moist oral mucous membranes HEAD & SCALP: normocephalic and atraumatic Eye: COMMON NORMALS: Equal, round and reactive pupils present, EOMs intact bilaterally and conjunctivae normal CONJUNCTIVA: Yes conjunctivae normal PUPIL: Yes Equal, round and reactive pupils present Neck/C-Spine: COMMON NORMALS: full ROM GENERAL: Yes normal visual inspection and Yes trachea midline Resp: COMMON NORMALS: normal respiratory effort, No retractions, No use of accessory muscles and clear to auscultation bilaterally EFFORT & INSPECTION: Yes able to speak in complete sentences, Yes symmetric chest movement and No tachypneic AUSCULTATION: clear to auscultation bilaterally OTHER: -on RA Cardio: COMMON NORMALS: regular rate, regular rhythm, S1 normal heart sound present, S2 normal heart sound present and No murmurs present (Cardio) RATE: regular rate RHYTHM: regular rhythm HEART SOUNDS: S1 normal heart sound present and S2 normal heart sound present GI: COMMON NORMALS: Normal to inspection, nondistended, normoactive bowel sounds present, Soft to palpation and non-tender INSPECTION: Yes central obesity PALPATION: Yes Soft to palpation Extremity: COMMON NORMALS: normal to inspection, full ROM, no clubbing, cyanosis or edema and no pedal edema Neuro: COMMON NORMALS: moves all extremities, no focal motor deficits and no sensory deficits noted SENSORIUM/ORIENTATION: Yes alert, No oriented to person, Yes oriented to place and No oriented to time SPEECH: speech normal MOTOR EXAM: Pronator motor function not present and Normal motor muscle tone present throughout OTHER: -quite weak Psych: COMMON NORMALS: mental status grossly normal, Normal thought process present, cooperative and speech normal SPEECH: Yes normal speech MOOD & AFFECT: Yes Flat affect present THOUGHT PROCESS: Normal thought process present ATTENTION/CONCENTRATION: Yes attention grossly intact and Yes concentration grossly impaired MEMORY/COGNITION: Yes memory grossly impaired INSIGHT: Limited insight present (Psych) Skin: COMMON NORMALS: no rashes or lesions noted, no jaundice, no petechiae and no mottling GENERAL SKIN EXAM: no rashes or lesions noted Urinary Catheter Management^: Saunders: Cath Placed During This Visit: yes, but has since been removed by the nurse Reason for Continuing Indwelling Catheter: Decision to DC Catheter Urinary Catheter Date of Insertion: 01/30/20 Urinary Catheter Time of Insertion: 22:07 Date Urinary Catheter Removed: 01/31/20 Time Urinary Catheter Discontinued: 05:30 Discharge Data Data Completed and Pending: Completed Studies During Hospitalization Category Date Time Status CT angio headneck * [id number] Urge nt Cat Scan 01/30/20 18:[address] head wo con* 7 0450 Urgent Cat Scan 01/30/20 16:08 Completed XR chest 1V bhupinder ble [id number] Urgent Exams 01/30/20 16:08 Completed Pending at discharge Category Date Time Status Blood Culture Sta t Lab 01/30/20 16:05 Results CSF Culture & Gra m Stain Stat Lab 01/30/20 21:02 Results Miscellaneous Yumiko t Routine Lab 01/30/20 21:00 Received Labs from last 24 hours 11/02/01/20 02/01/20 10:58 06:39 04:12 POC Glucose 225 157 Vitamin B12 288 Folate 02/01/20 01/31/20 04:12 20:47 POC Glucose 142 Vitamin B12 Folate > 20.0 Vitals: Last Vital Signs Temp 98.2 F 02/01/20 11:35 Pulse 68 02/01/20 11:35 Resp 17 02/01/20 11:35 BP 178/82 02/01/20 11:35 Pulse Ox 96 02/01/20 11:35 Discharge Plan Discharge Patient Disposition: Left Against Medical Advice Condition: Stable Prescriptions: No Action amlodipine [Norvasc] 2.5 mg tablet 2.5 mg PO DAILY Qty: 30 RF: 2 ProAir HFA 90 mcg/actuation HFA aerosol inhaler 2 puff INHALATION QID Qty: 1 RF: 2 Farxiga 10 mg tablet 10 mg PO DAILY Qty: 30 RF: 2 duloxetine [Cymbalta] 30 mg capsule,delayed release(DR/EC) 30 mg PO DAILY Qty: 30 RF: 2 duloxetine [Cymbalta] 60 mg capsule,delayed release(DR/EC) 60 mg PO DAILY Qty: 30 RF: 2 ergocalciferol (vitamin D2) [Vitamin D2] 1,250 mcg (50,000 unit) capsule 50,000 unit PO .weekly Qty: 4 RF: 2 Bydureon 2 mg/0.65 mL pen injector 2 mg SUBCUT Q7D Qty: 4 RF: 2 insulin aspart U-100 [Novolog Flexpen U-100 Insulin] 100 unit/mL (3 mL) insulin pen 100 unit SUBCUT TID 30 Days Qty: 90 RF: 1 Levemir FlexTouch U-100 Insuln 100 unit/mL (3 mL) insulin pen 100 unit SUBCUT BID 30 Days Qty: 60 RF: 2 lisinopril 40 mg tablet 40 mg PO DAILY Qty: 30 RF: 2 Amitiza 24 mcg capsule 24 mcg PO BID Qty: 60 RF: 2 metoprolol tartrate 50 mg tablet 50 mg PO BID Qty: 60 RF: 2 pantoprazole [Protonix] 40 mg tablet,delayed release (DR/EC) 40 mg PO DAILY Qty: 30 RF: 2 rosuvastatin [Crestor] 20 mg tablet 20 mg PO DAILY Qty: 30 RF: 2 topiramate [Topamax] 100 mg tablet 100 mg PO BID Qty: 60 RF: 2 zaleplon 10 mg capsule 10 mg PO BEDTIME Qty: 30 RF: 2 zonisamide 100 mg capsule 200 mg PO BID Qty: 120 RF: 2 (DME) Oxygen 2 L See Rx Instructions .Route .MEDSUPPLY Qty: 1 RF: 0 baclofen 20 mg tablet 20 mg PO TID PRN (Reason: spasms) 30 Days Qty: 90 RF: 1 isosorbide mononitrate 30 mg tablet extended release 24 hr 30 mg PO DAILY Qty: 30 RF: 2 morphine 30 mg tablet 30 mg PO Q12H PRN (Reason: Pain) 30 Days Qty: 60 RF: 0 pregabalin [Lyrica] 300 mg capsule 300 mg PO BID 30 Days Qty: 60 RF: 1 furosemide [Lasix] 20 mg tablet 20 mg PO QAM Qty: 30 RF: 2 (DME) OneTouch Ultra Blue Test Strip Strip See Rx Instructions .ROUTE .MEDSUPPLY Qty: 120 RF: 5 hydralazine 10 mg tablet 10 mg PO BID Qty: 60 RF: 0 nystatin 100,000 unit/gram cream 1 applic topical BID Qty: 30 RF: 0 Probiotic 1 tab PO DAILY RF: 0 Discharge Attestations Time Spent in Discharge Care*: less than 30 min Status at Discharge: Cognitive status at discharge: moderately impaired cognition, Quality Metrics Clinical Quality Measures During this hospital stay, did patient experience: None Coding Level of Care Code Acute Nursery School Attendant for g Fwd Diagnoses Altered mental status R40.0 Altered mental status type: somnolence Polypharmacy Z79.899 Diabetes mellitus with hyperglycemia E11.65; Z79.4 Diabetes mellitus halfway insulin use: with terminal manager use Diabetes mellitus type: type 2 CAD (coronary artery disease) I25.10 Coronary Disease-Associated Artery/Lesion type: [place] artery [place] vs. transplanted heart: [place] heart Associated angina: angina presence unspecified GERD (gastroesophageal reflux disease) K21.9 Esophagitis presence: without esophagitis Hyperlipidemia E78.2 Hyperlipidemia type: mixed hyperlipidemia Hypertension I10 Hypertension type: essential hypertension Obesity, morbid, BMI 40.0-49.9 E66.01
== END 2020-02-01 11:36 | disposition left against medical advice (07) | DRG 894 ==
LOC: ER 16:13 → MEDSURG 21:46
PROVIDERS: Admitting Provider Student in an Organized Health Care Education/Training Program; Emergency Provider Family Medicine; PCP Nurse Practitioner; Visit Provider Family Medicine
DX: F19.921 Other psychoactive substance use, unspecified with intoxication with delirium (principal); I50.32 Chronic diastolic (congestive) heart failure; G89.29 Other chronic pain; K21.9 Gastro-esophageal reflux disease without esophagitis; E78.2 Mixed hyperlipidemia; E66.01 Morbid (severe) obesity due to excess calories; Z68.39 Body mass index [BMI] 39.0-39.9, adult; I25.10 Atherosclerotic heart disease of native coronary artery without angina pectoris; M79.7 Fibromyalgia; F11.90 Opioid use, unspecified, uncomplicated; Z53.29 Procedure and treatment not carried out because of patient's decision for other reasons; M19.90 Unspecified osteoarthritis, unspecified site; R09.02 Hypoxemia; E11.65 Type 2 diabetes mellitus with hyperglycemia; I11.0 Hypertensive heart disease with heart failure; Z79.4 Long term (current) use of insulin; E11.40 Type 2 diabetes mellitus with diabetic neuropathy, unspecified; E55.9 Vitamin D deficiency, unspecified; R40.0 Somnolence
CPT/HCPCS: 12345; 36415; 36416; 51702; 62270; 70450; 70496; 70498; 71045; 80053; 80306; 81001; 82042; 82550; 82607; 82746; 82803; 82945; 82962; 83605; 83615; 83690; 83880; 84145; 84157; 84315; 84443; 84484; 85025; 85610; 86140; 87040; 87070; 87075; 87205; 87426; 89050; 92523; 93005; 94640; 94660; 96372; 97161; 97165; 99283; J1815; J7611; Q9967

== ENCOUNTER → 2020-02-23 08:31 | Outpatient (BNVA) | payer MEDICAID, SELFPAY | PROVIDERS: PCP Nurse Practitioner; Visit Provider Nurse Practitioner | DX: E11.65 Type 2 diabetes mellitus with hyperglycemia (principal); Z79.4 Long term (current) use of insulin; E55.9 Vitamin D deficiency, unspecified | CPT/HCPCS: 80053; 80061; 83036; 84443; 85025 ==

== ENCOUNTER → 2020-05-13 11:28 | Outpatient (BNVA) | payer MEDICAID, SELFPAY | PROVIDERS: PCP Nurse Practitioner; Visit Provider Nurse Practitioner | DX: E11.65 Type 2 diabetes mellitus with hyperglycemia (principal); Z79.4 Long term (current) use of insulin; E55.9 Vitamin D deficiency, unspecified | CPT/HCPCS: 80053; 80061; 81000; 82306; 83036; 85025 ==

== ENCOUNTER → 2020-05-26 11:03 | Outpatient (BNVA) | payer MEDICAID, SELFPAY | PROVIDERS: PCP Nurse Practitioner; Visit Provider Specialist | DX: G40.802 Other epilepsy, not intractable, without status epilepticus (principal); E11.40 Type 2 diabetes mellitus with diabetic neuropathy, unspecified; E11.65 Type 2 diabetes mellitus with hyperglycemia; Z79.4 Long term (current) use of insulin | CPT/HCPCS: 99215 ==

== ENCOUNTER → 2020-07-22 08:50 | Outpatient (BNVA) | payer MEDICAID, SELFPAY | PROVIDERS: PCP Nurse Practitioner | DX: E11.65 Type 2 diabetes mellitus with hyperglycemia (principal); Z79.4 Long term (current) use of insulin; E78.2 Mixed hyperlipidemia; I10 Essential (primary) hypertension; E55.9 Vitamin D deficiency, unspecified | CPT/HCPCS: 80053; 80061; 83036; 84443 ==

== ENCOUNTER → 2020-07-29 11:14 | Outpatient (BNVA) | payer MEDICAID, SELFPAY | PROVIDERS: PCP Nurse Practitioner; Visit Provider Nurse Practitioner | DX: E11.65 Type 2 diabetes mellitus with hyperglycemia (principal); Z79.4 Long term (current) use of insulin; M54.5 Low back pain; I10 Essential (primary) hypertension; J45.909 Unspecified asthma, uncomplicated; M17.11 Unilateral primary osteoarthritis, right knee; E55.9 Vitamin D deficiency, unspecified; K21.9 Gastro-esophageal reflux disease without esophagitis; M79.7 Fibromyalgia; E78.2 Mixed hyperlipidemia; F51.01 Primary insomnia | CPT/HCPCS: 81000 ==

== ENCOUNTER → 2020-10-01 09:41 | Outpatient (BNVA) | payer MEDICAID, SELFPAY | PROVIDERS: PCP Nurse Practitioner; Visit Provider Nurse Practitioner | DX: E11.65 Type 2 diabetes mellitus with hyperglycemia (principal); Z79.4 Long term (current) use of insulin; M79.7 Fibromyalgia; M54.5 Low back pain; E55.9 Vitamin D deficiency, unspecified; I10 Essential (primary) hypertension; J45.909 Unspecified asthma, uncomplicated; M17.11 Unilateral primary osteoarthritis, right knee; K21.9 Gastro-esophageal reflux disease without esophagitis; E78.2 Mixed hyperlipidemia; F51.01 Primary insomnia; E11.40 Type 2 diabetes mellitus with diabetic neuropathy, unspecified | CPT/HCPCS: 80053; 81000; 82306; 83036 ==

== ENCOUNTER 2020-12-03 08:46 | Outpatient (CLI) | payer MEDICAID, SELFPAY ==
--- NOTE | 2020-12-03 08:56 | FL_ITS ---
WS: [id number] UPPER GI WITH AIR TECHNICAL: Double contrast upper GI FLUOROSCOPY TIME: 2.4 minutes CLINICAL INFORMATION: K21.9 - Gastro-esophageal reflux disease without esophagitis COMPARISON: None. FINDINGS: Swallowing: Normal. Esophagus: Mild esophageal dysmotility. Small esophageal hiatal hernia. No stricture or obstructing m ass. Gastroesophageal reflux: Mild reflux is observed on the supine imaging. Stomach: Normal. Duodenum: Normal. Other findings: None. FL/FL upper GI w air* [id number] IMPRESSION: 1. Mild esophageal dysmotility with slightly delayed emptying. 2. Small esophageal hiatal hernia. 3. Mild reflux is observed on the supine imaging. 4. Normal double contrast stomach and duodenal C-loop.
== END 2020-12-03 08:47 | disposition home or self-care (01) ==
PROVIDERS: PCP Nurse Practitioner; Visit Provider Surgery
DX: K21.9 Gastro-esophageal reflux disease without esophagitis (principal); K44.9 Diaphragmatic hernia without obstruction or gangrene
CPT/HCPCS: 74246

== ENCOUNTER → 2020-12-23 15:55 | Outpatient (BNVA) | payer MEDICAID, SELFPAY | PROVIDERS: PCP Nurse Practitioner; Visit Provider Nurse Practitioner | DX: E11.65 Type 2 diabetes mellitus with hyperglycemia (principal); Z79.4 Long term (current) use of insulin; E55.9 Vitamin D deficiency, unspecified; I10 Essential (primary) hypertension; E11.40 Type 2 diabetes mellitus with diabetic neuropathy, unspecified; E78.2 Mixed hyperlipidemia; K21.9 Gastro-esophageal reflux disease without esophagitis; E66.01 Morbid (severe) obesity due to excess calories | CPT/HCPCS: 80053; 80061; 81000; 82306; 83036; 84443 ==

== ENCOUNTER → 2021-03-28 09:33 | Outpatient (BNVA) | payer MEDICAID, SELFPAY | PROVIDERS: PCP Nurse Practitioner; Visit Provider Nurse Practitioner | DX: E11.65 Type 2 diabetes mellitus with hyperglycemia (principal); E55.9 Vitamin D deficiency, unspecified; E78.2 Mixed hyperlipidemia; I10 Essential (primary) hypertension; M19.90 Unspecified osteoarthritis, unspecified site; M79.7 Fibromyalgia; E11.40 Type 2 diabetes mellitus with diabetic neuropathy, unspecified; Z79.4 Long term (current) use of insulin | CPT/HCPCS: 80053; 80061; 82306; 83036; 84443; 85025 ==

== ENCOUNTER → 2021-03-30 11:38 | Outpatient (BNVA) | payer MEDICAID, SELFPAY | PROVIDERS: PCP Nurse Practitioner; Visit Provider Nurse Practitioner | DX: J45.909 Unspecified asthma, uncomplicated (principal); M79.7 Fibromyalgia; E11.65 Type 2 diabetes mellitus with hyperglycemia; Z79.4 Long term (current) use of insulin; M19.90 Unspecified osteoarthritis, unspecified site; I10 Essential (primary) hypertension; E55.9 Vitamin D deficiency, unspecified; K21.9 Gastro-esophageal reflux disease without esophagitis; E78.2 Mixed hyperlipidemia; F51.01 Primary insomnia; E11.40 Type 2 diabetes mellitus with diabetic neuropathy, unspecified | CPT/HCPCS: 81000 ==

== ENCOUNTER 2021-05-30 07:01 | Outpatient (CLI) | payer MEDICAID, SELFPAY ==
--- NOTE | 2021-05-30 07:45 | US_ITS ---
WS: [id number] RIGHT UPPER QUADRANT ULTRASOUND HISTORY: R10.811 - Right upper quadrant abdominal tenderness COMPARISON: 11/02/2015 Liver: 18.0 cm in length. Liver is mildly enlarged. Coarse echotexture and attenuation limiting evalu ation of the entire liver. No mass or bile duct dilatation. Portal Vein: Normal hepatopetal flow with monophasic waveform. Gallbladder: Mildly contracted gallbladder with diffuse thickened wall. No pericholecystic fluid. No stones identified. The wall measures 3 mm. CBD: 0.4 cm Pancreas: Not well visualized. Right kidney: 11.5 cm in length. Normal size and echogenicity. No hydronephrosis or mass. Aorta and IVC: Unremarkable abdominal aorta and IVC. No ascites. US/US gall bladder [id number] IMPRESSION: 1. Mildly contracted with gallbladder with diffusely thickened wall. No stones . No adjacent fluid identified. These findings can be related to hepatocellular disease or chronic cholecystitis. 2. No bile duct dilatation. 3. Negative RIGHT kidney. 4. Mild hepatomegaly with hepatic steatosis.
== END 2021-05-30 07:02 | disposition home or self-care (01) ==
LOC: RAD 07:02
PROVIDERS: PCP Nurse Practitioner; Visit Provider Nurse Practitioner
DX: R10.811 Right upper quadrant abdominal tenderness (principal); R16.0 Hepatomegaly, not elsewhere classified; K76.0 Fatty (change of) liver, not elsewhere classified
CPT/HCPCS: 76705

== ENCOUNTER → 2021-06-06 11:18 | Outpatient (BNVA) | payer MEDICAID, SELFPAY | PROVIDERS: PCP Nurse Practitioner; Visit Provider Nurse Practitioner | DX: E11.65 Type 2 diabetes mellitus with hyperglycemia (principal); E55.9 Vitamin D deficiency, unspecified; Z79.4 Long term (current) use of insulin | CPT/HCPCS: 80053; 80061; 81000; 82306; 82607; 83036 ==

== ENCOUNTER 2021-06-13 09:51 | Outpatient (CLI) | payer MEDICAID, SELFPAY ==
--- NOTE | 2021-06-13 10:10 | XRR_ITS ---
PROCEDURE INFORMATION: Exam: XR Left Knee Exam date and time: 06/13/2021 10:13 AM Age: 55 years old Clinical indication: Pain; Knee; Left; Additional info: M25.562 - pain in left knee TECHNIQUE: Imaging protocol: XR Left knee. Views: 3 views. COMPARISON: CR Knee 3 views, LEFT* [id number] 04/08/2018 6:10 PM FINDINGS: Bones/joints: Normal. Soft tissues: Normal. XR/XR knee LT 3V* [id number] IMPRESSION: No acute findings.
== END 2021-06-13 09:52 | disposition home or self-care (01) ==
PROVIDERS: PCP Nurse Practitioner; Visit Provider Nurse Practitioner
DX: M25.562 Pain in left knee (principal)
CPT/HCPCS: 73562; 84443

== ENCOUNTER → 2021-06-20 14:00 | Outpatient (BNVA) | payer MEDICAID, SELFPAY | PROVIDERS: PCP Nurse Practitioner | DX: R00.0 Tachycardia, unspecified (principal); I49.3 Ventricular premature depolarization | CPT/HCPCS: 93242 ==

== ENCOUNTER → 2021-07-06 15:22 | Outpatient (BNVA) | payer MEDICAID, SELFPAY | PROVIDERS: PCP Nurse Practitioner; Visit Provider Surgery | DX: E66.01 Morbid (severe) obesity due to excess calories (principal); E11.65 Type 2 diabetes mellitus with hyperglycemia; Z79.4 Long term (current) use of insulin; Z68.42 Body mass index [BMI] 45.0-49.9, adult; Z12.11 Encounter for screening for malignant neoplasm of colon | CPT/HCPCS: 99213 ==

== ENCOUNTER 2021-07-12 12:43 | Outpatient (CLI) | payer MEDICAID, SELFPAY ==
--- NOTE | 2021-07-12 12:52 | XR_ITS ---
WS: [id number] XR chest 2V* [id number] REASON FOR EXAM: R05.9 - Cough, unspecified FINDINGS: Mild tortuosity the thoracic aorta with normal heart size. Calcified granulomatous disease bilaterally. No active pulmonary parenchymal or pleural disease. Old pleural pericardial reaction adjacent to the left ventricular apex. Mild degenerative spondylosis in the mid and lower thoracic spine. XR/XR chest 2V* [id number] IMPRESSION: No acute chest abnormality.
== END 2021-07-12 12:44 | disposition home or self-care (01) ==
LOC: RAD 12:45
PROVIDERS: PCP Nurse Practitioner; Visit Provider Nurse Practitioner
DX: R05.9 Cough, unspecified (principal)
CPT/HCPCS: 71046

== ENCOUNTER 2021-08-03 08:21 | Outpatient (CLI) | payer MEDICAID, SELFPAY ==
--- NOTE | 2021-08-03 08:30 | NM_ITS ---
WS: [id number] NUCLEAR MEDICINE HIDA SCAN CLINICAL INFORMATION: R10.11 - Right upper quadrant pain TECHNIQUE: Following intravenous administration of 7.3 mCi of technetium 99m mebrofenin, images of th e abdomen were obtained over the course of 60 minutes. Next, gallbladder ejection fraction was determ ined by obtaining preprandial and one-hour postprandial images of the gallbladder following oral jessica stion of Ensure. COMPARISON: Ultrasound May 30, 2021 FINDINGS: Normal hepatic uptake at 5 minutes. Hepatomegaly. Normal hepatic excretion. Gallbladder is visualized by 10 minutes. No evidence of acute cholecystitis. Normal common bile duct and small bowel activity. Abnormal gallbladder ejection fraction 3.0% compatible with gallbladder dysfunction. NM/NM hepatobiliary w phar* [id number] IMPRESSION: 1. Abnormal gallbladder ejection fraction 3.0% compatible with gallbladder dys function and suspicious for chronic cholecystitis. 2. No evidence of acute cholecystitis.
== END 2021-08-03 08:22 | disposition home or self-care (01) ==
LOC: RAD 08:24
PROVIDERS: PCP Nurse Practitioner; Visit Provider Nurse Practitioner
DX: M94.262 Chondromalacia, left knee (principal); M25.562 Pain in left knee; R10.11 Right upper quadrant pain
CPT/HCPCS: 20610; 78227; 99204; A9537; J0702; J3490

== ENCOUNTER → 2021-08-22 10:15 | Outpatient (BNVA) | payer MEDICAID, SELFPAY | PROVIDERS: PCP Nurse Practitioner; Visit Provider Surgery | DX: K80.50 Calculus of bile duct without cholangitis or cholecystitis without obstruction (principal) | CPT/HCPCS: 99213 ==

== ENCOUNTER → 2021-09-01 09:27 | Outpatient (BNVA) | payer MEDICAID, SELFPAY | PROVIDERS: PCP Nurse Practitioner; Visit Provider Nurse Practitioner | DX: E55.9 Vitamin D deficiency, unspecified (principal); E11.65 Type 2 diabetes mellitus with hyperglycemia; E11.40 Type 2 diabetes mellitus with diabetic neuropathy, unspecified | CPT/HCPCS: 80053; 80061; 82306; 83036; 85025 ==

== ENCOUNTER 2021-09-02 13:52 | Emergency (ER) | payer MEDICAID, SELFPAY ==
[2021-09-02 14:14] VITALS: BP 141/85; PULSE 64; RESP 18; TEMP 36.8; O2SAT 93; BMI 47.6
--- NOTE | 2021-09-02 14:25 | W.ED.WOUNDLC ---
HPI - Wound/Laceration General: Chief Complaint: Wound/Laceration Stated Complaint: right foot lac Time Seen by Provider: 09/02/21 14:20 Source: patient Mode of arrival: ambulatory Limitations: no limitations History of Present Illness: Patient is a 55-year-old female who presents to ED today with complaint of a laceration near her right ankle. Patient states she was carrying glass jars when one of the jars fell and broke and states one of the pieces of glass struck her right ankle. Patient is ambulatory without difficulty. She states she was seen at [facility] who stated they could not see her sent her here to the ED. Onset (ago): day(s) Extremity Location: Right: foot Place: home Patient tetanus UTD: No Context: accidental Associated symptoms: Reports no associated symptoms Review of Systems Musc: Reports: extremity pain (laceration to R ankle) Skin/Breast: Reports: other (R ankle laceration) Neuro: Denies: numbness in extremities or sensory changes PFS ED PFSH: Medical History Allergy-induced asthma CAD (coronary artery disease) Chronic arthritis Chronic back pain Diabetes Diabetes mellitus with hyperglycemia DM type 2, uncontrolled, with neuropathy Fibromyalgia Frequent falls GERD (gastroesophageal reflux disease) Hyperlipidemia Hypertension Insomnia Juvenile epilepsy Left knee pain Lumbar pain with radiation down leg Obesity, morbid, BMI 40.0-49.9 Primary osteoarthritis of right knee SVT (supraventricular tachycardia) Syncope Systolic heart failure Type 2 diabetes mellitus Vitamin D deficiency Surgical History Previous section Family History Other CAD (coronary artery disease) Diabetes Social History Smoking and tobacco status: never smoked Second hand smoke exposure: No Smoking risk assessment/counseling performed?: No Alcohol intake: never Desire information about alcohol rehabilitation?: No Counseling given: No Desire information about substance/drug rehabilitation?: No Counseling given: No Adopted: No Caregiver/support person: No Lives independently: Yes Household members: spouse Housing: House Marital status: Number of children: 3 service: No Current occupational status: unemployed History of recent travel: No Current gender identity: Female Physical Exam Const: COMMON NORMALS: no acute distress, patient oriented x3, no limitations and alert Extremity: COMMON NORMALS: normal to inspection and full ROM GENERAL: Yes normal exam except as noted RIGHT LOWER EXTREMITY: Yes foot & digits EXTREMITY IMAGE (FRONT): 1. 1.5cm superficial laceration; no bleeding; no tendon injury noted Neuro: COMMON NORMALS: patient oriented x3, moves all extremities, no focal motor deficits and no sensory deficits noted SENSORIUM/ORIENTATION: Yes alert Skin: NARRATIVE SKIN EXAM: see extremity assessment Procedures Laceration Laceration 1: Site: lower extremity Side (If applicable): right Size (cm): 1.5 Description: linear Depth: simple, single layer Local Anesthetic: lidocaine 1% Amount of anesthesia used (mL): 2.0 Pre-repair: wound explored and irrigated extensively Skin layer closed with: nylon Size (cm): 5-0 Number of sutures: 4 Technique: simple, interrupted Course Vital Signs: Vital signs: Vital Signs Temperature 98.3 F 09/02/21 14:14 Pulse Rate 64 09/02/21 14:14 Respiratory Rate 18 09/02/21 14:14 Blood Pressure 141/85 09/02/21 14:14 Pulse Oximetry 93 09/02/21 14:14 MDM - Wound/Laceration Medical Decision Making Wound was copiously irrigated and repaired as documented. Tetanus will be updated. Wound care and infection precautions discussed. Sutures can be removed in 7 days. Discussed performing the XR to rule out retained foreign body/glass but patient declines. Discharge Plan Discharge Patient Disposition: Home Clinical Impression: Laceration of right ankle Qualifiers: Encounter type: initial encounter Qualified Code(s): S91.011A - Laceration without foreign body, right ankle, initial encounter Condition: Stable Prescriptions: No Action (DME) Oxygen 2 L See Rx Instructions .Route .MEDSUPPLY Qty: 1 0RF Rx Instructions: Use 2L NC at night for 99 months ProAir HFA 90 mcg/actuation HFA aerosol inhaler 2 puff INHALATION QID Qty: 8.5 2RF baclofen 20 mg tablet 20 mg PO .at bedtime 30 Days Qty: 30 2RF celecoxib [Celebrex] 100 mg capsule 100 mg PO BID Qty: 60 2RF Farxiga 10 mg tablet 10 mg PO DAILY Qty: 30 2RF Trulicity 4.5 mg/0.5 mL pen injector 4.5 mg SUBCUT .weekly Qty: 2 2RF duloxetine [Cymbalta] 30 mg capsule,delayed release(DR/EC) 30 mg PO .in PM Qty: 30 2RF duloxetine [Cymbalta] 60 mg capsule,delayed release(DR/EC) 60 mg PO DAILY Qty: 30 2RF Rx Instructions: use only 60mg with AM and 30mg in PM ergocalciferol (vitamin D2) [Vitamin D2] 1,250 mcg (50,000 unit) capsule 50,000 unit PO .weekly Qty: 4 2RF hydralazine 10 mg tablet 10 mg PO BID Qty: 60 2RF Levemir FlexTouch U-100 Insuln 100 unit/mL (3 mL) insulin pen 100 unit SUBCUT BID 30 Days Qty: 60 2RF isosorbide mononitrate 30 mg tablet extended release 24 hr 30 mg PO DAILY Qty: 30 2RF Rx Instructions: Need 30mg due to low heart rate lisinopril 40 mg tablet 40 mg PO DAILY Qty: 30 2RF pantoprazole [Protonix] 40 mg tablet,delayed release (DR/EC) 40 mg PO DAILY Qty: 30 2RF Rx Instructions: take probiotic day pregabalin [Lyrica] 300 mg capsule 300 mg PO BID 30 Days Qty: 60 2RF rosuvastatin [Crestor] 20 mg tablet 20 mg PO DAILY Qty: 30 2RF zaleplon 10 mg capsule 10 mg PO BEDTIME Qty: 30 2RF zonisamide 100 mg capsule 100 mg PO BID Qty: 60 2RF (DME) blood sugar diagnostic Strip See Rx Instructions .ROUTE .MEDSUPPLY Qty: 120 5RF Rx Instructions: use 4 times day (DME) Easy Touch SheathLock Syrg-Ndl 3 mL 25 gauge x 1 syringe See Rx Instructions .ROUTE .MEDSUPPLY Qty: 1 0RF Rx Instructions: use monthly with Vitamin B12 metoprolol tartrate 75 mg tablet 75 mg PO BID Qty: 60 1RF diclofenac sodium [Voltaren Arthritis Pain] 1 % gel 2 g topical QID 30 Days Qty: 100 0RF Rx Instructions: apply to single elbow, wrist or hand; for hand includes palm/fingers/back of hand budesonide-formoterol [Symbicort] 160-4.5 mcg/actuation HFA aerosol inhaler 1 puff inhalation BID Qty: 10.2 0RF cyanocobalamin (vitamin B-12) 1,000 mcg/mL solution 1,000 mcg IM .monthly Qty: 1 0RF nystatin 100,000 unit/gram powder 1 applic topical BID Qty: 60 0RF Probiotic 1 tab PO DAILY 0RF Rx Instructions: TAKE WITH PANTOPRAZOLE.PT UNABLE TO CONFIRM MEDS, HER DIDN'T KNOW THEM EITHER. GOING BY HISTORY AND PHARMACY LIST. RX FILLED 01/16/2020 Discharge Orders: Discharge ED (Routine); Ordered 09/02/21 Ordered By: Meghan Oliveira Referrals: Lonny Mendoza, [employer] [Primary Care Provider] - Patient Instructions: Laceration (DC) Activity Restrictions/Additional Instructions: Keep wound/laceration clean with warm soap and water twice daily. Monitor for signs of infection such as redness, swelling, increased pain, or drainage. Please seek medical re-evaluation if these occur. If you received sutures today these will need to be removed (unless you were told by the provider that they are absorbable). The provider should have discussed with you the length of time until removal-7 DAYS. You may return to the emergency department for this service. Coding Level of Care Code ED English Division Chair for Warren Rosado
[2021-09-02] MEDS: tetanus-diphtheria tox (adult) 0.5 mL SDV IM (15:09)
== END 2021-09-02 15:38 | disposition home or self-care (01) ==
PROVIDERS: Emergency Provider Physician Assistant; PCP Nurse Practitioner
DX: S91.011A Laceration without foreign body, right ankle, initial encounter (principal); Z79.899 Other long term (current) drug therapy; Z79.4 Long term (current) use of insulin; W25.XXXA Contact with sharp glass, initial encounter; I25.10 Atherosclerotic heart disease of native coronary artery without angina pectoris; E11.9 Type 2 diabetes mellitus without complications; E78.5 Hyperlipidemia, unspecified; I11.0 Hypertensive heart disease with heart failure; I50.20 Unspecified systolic (congestive) heart failure; Z23 Encounter for immunization
CPT/HCPCS: 12001; 90471; 90714; 99283

== ENCOUNTER 2021-09-06 05:34 | Day surgery (SDC) | payer MEDICAID, SELFPAY ==
[2021-09-02 10:02] VITALS: BMI 46.7
[2021-09-06] VITALS (15 sets, daily range): BP systolic 116–171; BP diastolic 67–105; PULSE 73–104; RESP 15–21; TEMP 36.4–37.2; O2SAT 88–98
--- NOTE | 2021-09-06 06:14 | W.PM.OPSUD ---
Surgery/Procedure H&P Update DATE OF PROCEDURE: September 06, 2021 DATE H&P PERFORMED: 08/22/21 H&P UPDATE INFORMATION: I have reviewed H&P completed within last 30 days, I have examined patient prior to procedure and Changes to prior documentation as noted here (Patient's current weight 293 pounds) PREOP DIAGNOSIS: recurrent biliary colic PRIMARY INDICATION FOR PROCEDURE: Recurrent biliary colic PLANNED PROCEDURE: Operation Date: 09/06/21 07:00 Proposed Procedures p Laparoscopic Cholecystectomy 99969,K82.9(Not Applicable) - Lyle Blas MD
[2021-09-06] MEDS: sodium chloride 0.9% 1,000 ML 30 ML IV (06:32)
[2021-09-06] MEDS: heparin 5,000 unit/mL INJ 1 mL 3000 UNIT SUBCUT (06:32)
[2021-09-06 06:37] LABS: Glucose Point of Care 139 mg/dL (70-110)
--- NOTE | 2021-09-06 06:39 | ANES.PREANE2 ---
Pre-Anesthetic Assessment Height/Weight: Height 1.68 m Weight 132.903 kg Temp Pulse Resp BP Pulse Ox 98.0 F 73 18 144/80 95 09/06/21 06:16 09/06/21 06:16 09/06/21 06:16 09/06/21 06:16 09/06/21 06:16 Preop Diagnosis: recurrent biliary colic Operation Date: 09/06/21 07:00 Proposed Procedures p Laparoscopic Cholecystectomy 27458,K82.9(Not Applicable) - Lyle Blas MD Familial anesthetic complications: None Was Beta Victor Manuel taken within 24 hours: Yes Was Clonidine taken within 24 hours: N/A Last intake: Intake Last Liquid Date 09/05/21 Last Liquid Time 16:30 Last Solid Date 09/03/21 Social No alcohol and No tobacco Exam alert, oriented x 3, clear to auscultation bilaterally and regular rate & rhythm Airway Mallampati: Class III Dentition: false Pulmonary Asthma and Chronic Obstructive Pulmonary Disease (2 L NC) hx frequent pneumonia and bronchitis - last episode 3 -4 months ago, states she feels back to her baseline status this morning CV/HEM Arrythmia (PVCs, SVT, and 5 beat VTACH on holter - placed on metolprolol), Congestive Heart Failure (systolic), Deep Vein Thrombosis and Hypertension Hepatic fatty liver GI Gastroesophageal Reflux Disease Metabolic Diabetes Mellitus, Hyperlipidemia and Morbid Obesity Musc/skel Lower Back Pain Neuropsych Seizure (last one 9 months ago - tooker her anti-seizure yesterday evening) Anesthetic Plan ASA status: 4 Anesthesia: General Risk of > 500 ml blood loss (7ml/kg in children): No Medications/Allergies Home Medications Medication Instructions Recorded Confirmed Last Taken Type Oxygen 2 L #1 ea 11/25/19 09/02/21 Unknown Rx Probiotic 1 tab PO DAILY 01/30/20 09/06/21 09/05/21 History blood sugar diagnostic #120 each 03/30/21 09/02/21 Unknown Rx syringe with needle, safety 3 mL #1 ea 03/30/21 09/02/21 Unknown Rx 25 gauge x 1 (Easy Touch SheathLock Syringe with Needle) albuterol sulfate 90 mcg/actuation 2 puff INHALATION QID #8.5 g 06/09/21 09/06/21 09/02/21 Rx aerosol inhaler (ProAir HFA) baclofen 20 mg tablet 20 mg PO .at bedtime 30 Days #30 06/09/21 09/06/21 09/05/21 Rx tab celecoxib 100 mg capsule (Celebrex) 100 mg PO BID #60 cap 06/09/21 09/06/21 09/05/21 Rx dapagliflozin 10 mg tablet 10 mg PO DAILY #30 tab 06/09/21 09/06/21 09/05/21 Rx (Farxiga) dulaglutide 4.5 mg/0.5 mL 4.5 mg (0.5 mL) SUBCUT .weekly #2 06/09/21 09/06/21 09/04/21 Rx subcutaneous pen injector ml (Trulicity) duloxetine 30 mg capsule,delayed 30 mg PO .in PM #30 cap 06/09/21 09/06/21 09/05/21 Rx release (Cymbalta) duloxetine 60 mg capsule,delayed 60 mg PO DAILY #30 cap 06/09/21 09/06/21 09/05/21 Rx release (Cymbalta) ergocalciferol (vitamin D2) 1,250 50,000 unit PO .weekly #4 cap 06/09/21 09/06/21 09/02/21 Rx mcg (50,000 unit) capsule (Vitamin D2) hydralazine 10 mg tablet 10 mg PO BID #60 tab 06/09/21 09/06/21 09/05/21 Rx insulin detemir U-100 100 unit/mL 100 unit SUBCUT BID 30 Days #60 ml 06/09/21 09/06/21 09/05/21 Rx (3 mL) subcutaneous pen (Levemir FlexTouch U-100 Insulin) isosorbide mononitrate 30 mg 30 mg PO DAILY #30 tab 06/09/21 09/06/21 09/05/21 Rx tablet,extended release 24 hr lisinopril 40 mg tablet 40 mg PO DAILY #30 tab 06/09/21 09/06/21 09/04/21 Rx pantoprazole 40 mg tablet,delayed 40 mg PO DAILY #30 tab 06/09/21 09/06/21 09/05/21 Rx release (Protonix) pregabalin 300 mg capsule (Lyrica) 300 mg PO BID 30 Days #60 cap 06/09/21 09/06/21 09/05/21 Rx rosuvastatin 20 mg tablet (Crestor) 20 mg PO DAILY #30 tab 06/09/21 09/06/21 09/05/21 Rx zaleplon 10 mg capsule 10 mg PO BEDTIME #30 cap 06/09/21 09/06/21 09/05/21 Rx zonisamide 100 mg capsule 100 mg PO BID #60 cap 06/09/21 09/06/21 09/05/21 Rx metoprolol tartrate 75 mg tablet 75 mg PO BID #60 tab 07/13/21 09/06/21 09/05/21 Rx budesonide-formoterol HFA 160 1 puff INHALATION BID #10.2 g 07/22/21 09/06/21 Unknown Rx mcg-4.5 mcg/actuation aerosol inhaler (Symbicort) diclofenac sodium 1 % topical gel 2 g TOPICAL QID 30 Days #100 g 07/28/21 09/06/21 09/05/21 Rx (Voltaren Arthritis Pain) cyanocobalamin (vitamin B-12) 1,000 mcg IM .monthly #1 ml 08/02/21 09/06/21 Unknown Rx 1,000 mcg/mL injection solution nystatin 100,000 unit/gram topical 1 applic TOPICAL BID #60 g 08/02/21 09/06/21 Unknown Rx powder Allergies Allergy/AdvReac Type Severity Reaction Status Date / Time latex Allergy Intermediate hives Verified 09/06/21 06:08 simvastatin Allergy Unknown Unknown Verified 09/06/21 06:08 aspirin Allergy ALGY-Hives Verified 09/06/21 06:08 calcium carbonate Allergy rash Verified 09/06/21 06:08 [From Salagen (aspirin)] magnesium Allergy rash Verified 09/06/21 06:08 [From Salagen (aspirin)] Current Medications Generic Name Dose Route Start Last Admin Trade Name Freq PRN Reason Stop Dose Admin Sodium Chloride 1,000 mls @ 30 mls/hr 09/06/21 06:00 09/06/21 06:32 Sodium Chloride 0.9% IV 09/07/21 05:59 30 mls/hr .Q24H KELLEN Administration PFSH Anesthesia Medical History Allergy-induced asthma CAD (coronary artery disease) Chronic arthritis Chronic back pain Diabetes Diabetes mellitus with hyperglycemia DM type 2, uncontrolled, with neuropathy Fibromyalgia Frequent falls GERD (gastroesophageal reflux disease) Hyperlipidemia Hypertension Insomnia Juvenile epilepsy Left knee pain Lumbar pain with radiation down leg Obesity, morbid, BMI 40.0-49.9 Primary osteoarthritis of right knee SVT (supraventricular tachycardia) Syncope Systolic heart failure Type 2 diabetes mellitus Vitamin D deficiency Surgical History Previous section Family History Other CAD (coronary artery disease) Diabetes Social History Smoking and tobacco status: never smoked Second hand smoke exposure: No Smoking risk assessment/counseling performed?: No Alcohol intake: never Desire information about alcohol rehabilitation?: No Counseling given: No Desire information about substance/drug rehabilitation?: No Counseling given: No Adopted: No Caregiver/support person: No Lives independently: Yes Household members: spouse Housing: House Marital status: Number of children: 3 service: No Current occupational status: unemployed History of recent travel: No Current gender identity: Female Data Anesthesia Cardiac Studies: Echocardiogram Ultrasound 03/08/19 Holter Monitor 06/20/21
[2021-09-06] MEDS: ampicillin-sulbactam 3 GM in sodium chloride 0.9% (plus) 50 ML IV (07:04)
[2021-09-06] MEDS: lidocaine 2% INJ 20 mL INJECTION (07:36)
--- NOTE | 2021-09-06 08:11 | P.OP_ITS ---
Operative Report Date of procedure: September 06, 2021 Pre-op diagnosis: Preop Diagnosis recurrent biliary colic Post-op findings: Chronic cholecystitis Procedure done: Laparoscopic cholecystectomy Specimens removed/disposition: Gallbladder and contents Surgeon: Lyle Blas MD Colorist Photography: Surgical jennifer Grace Circulating nurse Sunita Anesthesia: General (GETA DIRECTOR OF FOOD AND BEVERAGE SERVICES Selvin and DIRECTOR OF FOOD AND BEVERAGE SERVICES student Boni) Estimated blood loss (mL): 5 IV fluids (mL): 600 Procedure: Patient was identified in the holding area and taken back to the operative suite, placed in supine position intubated by anesthesia . Time-out was done verifying the patient's name/date of /planned procedure and destination after the procedure, all were in agreement. SCDs confirmed to be functioning, preoperative antibiotics administered per protocol, and beta nash protocol was confirmed. Patient was appropriately secured to the table, footboard was applied to the OR table, before prep and drape anesthesia was asked to tilt the table back and forth to make sure that the patient is appropriately secured and she was. Prep and drape of the abdomen was done under the usual sterile technique, followed by that supraumbilical skin incision,skin incision was done by a 15 blade knife, and stay sutures were applied to the fascia and Ayala trocar technique was used to enter the abdominal without injuring any abdominal viscera, started by low flow gas insufflation followed by a high flow, started with a 10 mm laparoscope and under direct vision there was no evidence of any injuries, the scope then switched to a 30? ,10 millimeter scope and under direct visualization 5 millimeter trocar was inserted in the epigastric region followed by two 5 mm trocars were inserted in the right upper quadrant that was done after injection of local lidocaine 2% at all incision sites. Noticed that the patient has attenuated fascia Gallbladder showed chronic cholecystitis and Mild Fatty Liver Patient was then positioned in the head up and tilted to the left. Ratcheted forceps were introduced into the lateral most 5mm port and was applied unto the fundus of the gallbladder cephalad and using Bullet forceps the infundibulum of the gallbladder was retracted laterally. Using [place] forceps then L-hook cautery to dissect the peritoneum overlying the Calot's triangle which was then opened medially and laterally until the cystic duct and the cystic artery were skeletonized. Dissection was carried along the body of the gallbladder and after ensuring critical view of safety was identfied. Cystic duct and cystic artery where seen connected to the gallbladder. Clips were applied on the cystic duct towards the common bile duct 1 towards the gallbladder then divided is in sharp scissors, 2 clips were then applied onto the cystic artery and 1 towards the gallbladder and divided by sharp scissors. Dissection was then carried along of the gallbladder from the gallbladder fossa using cautery as well as sharp dissection with heat energy. The gallbladder then was dissected out from the gallbladder fossa totally , cholecystectomy was then achieved and was placed in an Endo Catch bag and then retrieved from the Ayala trocar site under direct visualization using a 5 mm 30? scope through the epigastric trocar, specimen was then passed to the circulating nurse to go for permanent pathology,irrigation and hemostasis was done to the gallbladder fossa after hemostasis was secured, final survey laparoscopy was done that showed no injuries. Suction irrigation was obtained The supraumbilical fascial defect was then closed using interrupted number one PDS sutures using a fascial closure device ;Cosme Cummings under direct visualization,following that Gas was allowed to deflate,Trocars were then taken out under direct vision there was no evidence of bleeding. Specimen was passed to the circulating nurse for permanent pathology. No drains were placed and the supraumbilical incision as well as all trocar sites were closed by 3/0 Vicryl followed by 4-0 Monocryl to approximate the skin edges of the incisions , dressing was applied in the form of surical glue and the patient patient got extubated and was taken to recovery area in a stable condition. Count of sponges,needles and instruments were completed at the end of the procedure I was present for the whole entire procedure.
--- NOTE | 2021-09-06 08:55 | PC.NURSE ---
0815 patient spit out oral airway
[2021-09-06] MEDS: fentaNYL 50 mcg/mL INJ 2mL IVP (09:03)
--- NOTE | 2021-09-06 14:34 | ANE.PACU2 ---
Inpatient post-anesthesia follow up: Airway intact: Yes Vital signs: Temperature 97.6 F Pulse Rate 74 Respiratory Rate 18 Blood Pressure 122/75 Pulse Oximetry 92 Oxygen Delivery Me thod Room Air Oxygen Flow Rate 2 Fraction of Inspir ed Oxygen Hydration adequate: Yes Nausea and vomiting: No Pain level: 1 Mental status: Baseline
== END 2021-09-06 10:15 | disposition home or self-care (01) ==
PROVIDERS: PCP Nurse Practitioner; Visit Provider Surgery
PROC: 0FT44ZZ Resection of Gallbladder, Percutaneous Endoscopic Approach (ICD-10-PCS; CPT 47562; principal; 2021-09-06 07:00)
DX: K81.0 Acute cholecystitis (principal); K81.1 Chronic cholecystitis; J44.9 Chronic obstructive pulmonary disease, unspecified; Z99.81 Dependence on supplemental oxygen; K76.0 Fatty (change of) liver, not elsewhere classified; K21.9 Gastro-esophageal reflux disease without esophagitis; E78.5 Hyperlipidemia, unspecified; E66.01 Morbid (severe) obesity due to excess calories; Z68.37 Body mass index [BMI] 37.0-37.9, adult; E11.40 Type 2 diabetes mellitus with diabetic neuropathy, unspecified; E11.65 Type 2 diabetes mellitus with hyperglycemia; I11.0 Hypertensive heart disease with heart failure; I50.20 Unspecified systolic (congestive) heart failure
CPT/HCPCS: 47562; 36416; 82962; 88304; J0295; J1100; J1644; J2370; J2405; J2704; J2710; J3010; J3490; J7030

== ENCOUNTER → 2021-09-15 13:49 | Outpatient (BNVA) | payer MEDICAID, SELFPAY | PROVIDERS: PCP Nurse Practitioner; Visit Provider Surgery | DX: Z98.890 Other specified postprocedural states (principal); Z90.49 Acquired absence of other specified parts of digestive tract; E66.01 Morbid (severe) obesity due to excess calories; Z68.42 Body mass index [BMI] 45.0-49.9, adult | CPT/HCPCS: 99024 ==

== ENCOUNTER 2021-09-23 09:48 | Outpatient (CLI) | payer MEDICAID, SELFPAY ==
--- NOTE | 2021-09-23 09:55 | FL_ITS ---
WS: [id number] FL barium enema [id number] REASON FOR EXAM: SCREENING FOR COLONOSCOPY FLUOROSCOPY TIME: 2min [id number] # OF SPOT FILMS: 6 FINDINGS: The filling of the colon with barium was moderate fluoroscopically and multiple spot films obtained. After filling of the colon with small amount of reflux into the small bowel multiple overhead radiogr aphs were obtained. No constricting intrinsic or extrinsic lesion of the colon was identified. No intraluminal mass was identified. No mucosal abnormality was identified. The refluxed terminal ileum appeared normal. FL/FL barium enema [id number] IMPRESSION: No significant abnormality.
== END 2021-09-23 09:49 | disposition home or self-care (01) ==
LOC: RAD 09:49
PROVIDERS: PCP Nurse Practitioner; Visit Provider Surgery
DX: Z12.11 Encounter for screening for malignant neoplasm of colon (principal)
CPT/HCPCS: 74270

== ENCOUNTER → 2021-09-27 13:13 | Outpatient (BNVA) | payer MEDICAID, SELFPAY | PROVIDERS: PCP Nurse Practitioner; Visit Provider Specialist | DX: R56.9 Unspecified convulsions (principal); E66.01 Morbid (severe) obesity due to excess calories; Z68.42 Body mass index [BMI] 45.0-49.9, adult; G47.33 Obstructive sleep apnea (adult) (pediatric); G47.10 Hypersomnia, unspecified | CPT/HCPCS: 99214; 99215 ==

== ENCOUNTER → 2021-10-04 16:29 | Outpatient (BNVA) | payer MEDICAID, SELFPAY | PROVIDERS: PCP Nurse Practitioner; Visit Provider Nurse Practitioner | DX: Z20.822 Contact with and (suspected) exposure to COVID-19 (principal); R05.9 Cough, unspecified | CPT/HCPCS: 87426 ==

== ENCOUNTER → 2021-10-12 15:27 | Outpatient (BNVA) | payer MEDICAID, SELFPAY | PROVIDERS: PCP Nurse Practitioner; Visit Provider Surgery | DX: E66.01 Morbid (severe) obesity due to excess calories (principal); E11.40 Type 2 diabetes mellitus with diabetic neuropathy, unspecified; E11.65 Type 2 diabetes mellitus with hyperglycemia; Z90.49 Acquired absence of other specified parts of digestive tract; Z68.42 Body mass index [BMI] 45.0-49.9, adult; Z98.890 Other specified postprocedural states | CPT/HCPCS: 99024 ==

== ENCOUNTER → 2021-11-09 11:40 | Outpatient (BNVA) | payer MEDICAID, SELFPAY | PROVIDERS: PCP Nurse Practitioner; Visit Provider Surgery | DX: E66.01 Morbid (severe) obesity due to excess calories (principal) | CPT/HCPCS: 36415; 80053; 80061; 82310; 82607; 82652; 82728; 82746; 83540; 83550; 83735; 83970; 84425; 84443; 84630; 85025 ==

== ENCOUNTER 2021-11-15 15:14 | Inpatient (IN) | payer MEDICAID, SELFPAY ==
[2021-11-04 13:02] VITALS: BMI 46.5
--- NOTE | 2021-11-04 13:08 | ECG_ITS ---
[facility] Test Date: 2021-11-04 Pat Name: Felisa Medina Department: Room: Gender: Female Photographic Editor: : 1965 Requested By: Lorena Carrasquillo Order Number: [id number] Yasmany MD: Tania Fuentes M.D. Measurements Intervals [place] Rate: 63 P: 50 OR: 192 QRS: -27 QRSD: 87 T: 86 QT: 380 QTc: 392 Interpretive Statements SINUS RHYTHM INFERIOR MYOCARDIAL INFARCTION , PROBABLY OLD [40+ ms Q WAVE AND/OR ST/T ABNORMALITY IN II/aVF] Compared to ECG 01/30/2020 18:07:38 Sinus bradycardia no longer present Myocardial infarct finding still present Electronically Signed On 11-04-2021 15:55:50 CDT by Tania Fuentes M.D. [id number]
--- NOTE | 2021-11-04 13:38 | P.ANESASSM_ITS ---
Pre-Anesthetic Assessment Height/Weight: Height 1.7 m Weight 134.717 kg Preop Diagnosis: recurrent biliary colic Operation Date: 11/15/21 07:00 Proposed Procedures p Laparoscopic Gastric Sleeve w/ EGD [id number],E66.01(Not Applicable) - Lyle Blas MD Familial anesthetic complications: None Social No alcohol and No tobacco Exam alert, oriented x 3, clear to auscultation bilaterally and regular rate & rhythm Airway Mallampati: Class III Dentition: false Pulmonary Asthma (exercise-induced asthma) and Sleep Apnea (severe wears O2, but not a m ask becaues it was bothering) CV/HEM Arrythmia (SVT), Congestive Heart Failure, Hypertension and Myocardial Infarction (2016) ?echo CONCLUSIONS ?1. Normal left ventricular cavity size and systolic function. ?Left ventricular ejection fraction is estimated at 60 %. No ?diagnostic regional wall motion abnormalities. Normal diastolic ?function. ?2. Normal right ventricular size and systolic function. ?3. Pulmonary artery pressure estimated at 31 mmHg. ?4. No significant valvular abnormality. ?5.? No prior similar studies to compare GI Gastroesophageal Reflux Disease Metabolic Diabetes Mellitus and Morbid Ob[place] [facility] [place] Fibromyalgia Neuropsych Seizure Anesthetic Plan ASA status: 4 Anesthesia: General Risk of > 500 ml blood loss (7ml/kg in children): No Medications/Allergies Home Medications Medication Instructions Recorded Confirmed Last Taken Type Oxygen 2 L #1 ea 11/25/19 11/04/21 Unknown Rx Probiotic 1 tab PO DAILY 01/30/20 11/04/21 09/05/21 History syringe with needle, safety 3 mL #1 ea 03/30/21 11/04/21 Unknown Rx 25 gauge x 1 (Easy Touch SheathLock Syringe with Needle) celecoxib 100 mg capsule (Celebrex) 100 mg PO BID #60 caps 06/09/21 11/04/21 09/05/21 Rx diclofenac sodium 1 % topical gel 2 g topical QID 30 days #100 grams 07/28/21 11/04/21 09/05/21 Rx (Voltaren Arthritis Pain) albuterol sulfate 90 mcg/actuation 2 puff inhalation QID #8.5 grams 09/14/21 11/04/21 Unknown Rx aerosol inhaler (ProAir HFA) baclofen 20 mg tablet 20 mg PO .at bedtime spasms 30 09/14/21 11/04/21 Unknown Rx days #30 tabs blood sugar diagnostic #120 ea 09/14/21 11/04/21 Unknown Rx cyanocobalamin (vitamin B-12) 1,000 mcg IM .monthly #1 mL 09/14/21 11/04/21 Unknown Rx 1,000 mcg/mL injection solution dapagliflozin 10 mg tablet 10 mg PO DAILY #30 tabs 09/14/21 11/04/21 Unknown Rx (Farxiga) dulaglutide 4.5 mg/0.5 mL 4.5 mg (0.5 mL) SUBCUT .weekly #2 09/14/21 11/04/21 Unknown Rx subcutaneous pen injector mL (Trulicity) duloxetine 30 mg capsule,delayed 30 mg PO .in PM #30 caps 09/14/21 11/04/21 Unknown Rx release (Cymbalta) duloxetine 60 mg capsule,delayed 60 mg PO DAILY #30 caps 09/14/21 11/04/21 Unknown Rx release (Cymbalta) ergocalciferol (vitamin D2) 1,250 50,000 unit PO .weekly #4 caps 09/14/21 11/04/21 Unknown Rx mcg (50,000 unit) capsule (Vitamin D2) hydralazine 10 mg tablet 10 mg PO BID #60 tabs 09/14/21 11/04/21 Unknown Rx insulin detemir U-100 100 unit/mL 100 unit SUBCUT BID 30 days #60 mL 09/14/21 11/04/21 Unknown Rx (3 mL) subcutaneous pen (Levemir FlexTouch U-100 Insulin) isosorbide mononitrate 30 mg 30 mg PO DAILY #30 tabs 09/14/21 11/04/21 Unknown Rx tablet,extended release 24 hr lisinopril 40 mg tablet 40 mg PO DAILY #30 tabs 09/14/21 11/04/21 Unknown Rx metoprolol tartrate 75 mg tablet 75 mg PO BID #60 tabs 09/14/21 11/04/21 Unknown Rx pantoprazole 40 mg tablet,delayed 40 mg PO DAILY #30 tabs 09/14/21 11/04/21 Unknown Rx release (Protonix) pregabalin 300 mg capsule (Lyrica) 300 mg PO BID 30 days #60 caps 09/14/21 11/04/21 Unknown Rx rosuvastatin 20 mg tablet (Crestor) 20 mg PO DAILY #30 tabs 09/14/21 11/04/21 Unknown Rx zaleplon 10 mg capsule 10 mg PO BEDTIME #30 caps 09/14/21 11/04/21 Unknown Rx nystatin 100,000 unit/gram topical 1 applic topical BID #60 grams 10/16/21 11/04/21 Unknown Rx powder zonisamide 100 mg capsule 100 mg PO BID 11/04/21 11/04/21 Unknown History Allergies Allergy/AdvReac Type Severity Reaction Status Date / Time latex Allergy Intermediate hives Verified 11/04/21 12:52 simvastatin Allergy Unknown Unknown Verified 11/04/21 12:52 adhesive tape Allergy ALGY-Rash Verified 11/04/21 12:52 aspirin Allergy ALGY-Hives Verified 11/04/21 12:52 calcium carbonate Allergy rash Verified 11/04/21 12:52 [From Salagen (aspirin)] hydromorphone [From Dilaudid] Allergy ADR-Nausea Verified 11/04/21 12:52 magnesium Allergy rash Verified 11/04/21 12:52 [From Salagen (aspirin)] [facility] Anesthesia Medical History Allergy-induced asthma CAD (coronary artery disease) Chronic arthritis Chronic back pain Diabetes Diabetes mellitus with hyperglycemia DM type 2, uncontrolled, with neuropathy Fibromyalgia Frequent falls GERD (gastroesophageal reflux disease) Hyperlipidemia Hypertension Insomnia Juvenile epilepsy Left knee pain Lumbar pain with radiation down leg Obesity, morbid, BMI 40.0-49.9 Primary osteoarthritis of right knee Recurrent biliary colic SVT (supraventricular tachycardia) Syncope Systolic heart failure Type 2 diabetes mellitus Vitamin D deficiency Surgical History Previous section Family History Other CAD (coronary artery disease) Diabetes Social History Smoking and tobacco status: never smoked Second hand smoke exposure: No Smoking risk assessment/counseling performed?: No Alcohol intake: never Desire information about alcohol rehabilitation?: No Counseling given: No Desire information about substance/drug rehabilitation?: No Counseling given: No Adopted: No Caregiver/support person: No Lives independently: Yes Household members: spouse Housing: House Marital status: Number of children: 3 service: No Current occupational status: unemployed History of recent travel: No Current gender identity: Female Data Anesthesia Cardiac Studies: Echocardiogram Ultrasound 03/08/19 Holter Monitor 06/20/21
[2021-11-15] VITALS (29 sets, daily range): BP systolic 112–185; BP diastolic 71–109; PULSE 60–87; RESP 14–23; TEMP 36.2–37.1; O2SAT 90–100; BMI 46.5
[2021-11-15] MEDS: scopolamine 1.5 Patch 1 PATCH TRANSDERMA (06:45)
[2021-11-15] MEDS: pantoprazole 40 mg SDV IVP (06:48)
[2021-11-15] MEDS: sodium chloride 0.9% 1,000 ML 999 ML IV (06:48)
[2021-11-15] MEDS: acetaminophen 1,000 MG/100 ML PIGGYBACK 400 MG IV ×2 (06:51→19:08)
[2021-11-15] MEDS: heparin 5,000 unit/mL INJ 1 mL 5000 UNIT SUBCUT ×2 (06:52→23:18)
[2021-11-15 07:08] LABS: Glucose Point of Care 160 mg/dL (70-110)
--- NOTE | 2021-11-15 07:53 | P.ANESASSM_ITS ---
Pre-Anesthetic Assessment Height/Weight: Height 1.7 m Weight 134.717 kg Temp Pulse Resp BP Pulse Ox O2 Del Method 97.4 F L 60 18 161/93 94 11/15/21 06:23 11/15/21 06:23 11/15/21 06:23 11/15/21 06:23 11/15/21 06:23 11/15/21 06:23 Preop Diagnosis: recurrent biliary colic Operation Date: 11/15/21 08:20 Proposed Procedures p Laparoscopic Gastric Sleeve w/ EGD [id number],E66.01(Not Applicable) - Lyle Blas MD Familial anesthetic complications: None Was Beta Victor Manuel taken within 24 hours: Yes Was Clonidine taken within 24 hours: N/A Last intake: Intake Last Liquid Date 11/14/21 Last Liquid Time 22:00 Last Solid Date 11/09/21 Social No alcohol and No tobacco Exam alert, oriented x 3, clear to auscultation bilaterally and regular rate & rhythm Airway Submandibular: within normal limits Cervical ROM: within normal limits Mallampati: Class III Dentition: false Pulmonary Asthma and Sleep Apnea Uses supplemental nocturnal O2, no CPAP CV/HEM Arrythmia (SVT ), Coronary Artery Disease and Congestive Heart Failure Able to go up a flight of stairs w/o CP, some SOB Holter 06/20/21 CONCLUSION: 1. The observed rhythms are sinus rhythm to sinus tachycardia. The Maximum Heart Rate recorded was 183 bpm, Day :28:42 pm, the Minimum Heart Rate recorded was 64 bpm, Day :39:37 am and the Average Heart Rate was 81 bpm. 2. There were 150 PVCs with a burden of 0.04 %. There was 1 occurrence of Ventricular Tachycardia with the longest episode 5 beats, Day :18:41 pm and the fastest episode 143 bpm, Day :18:41 pm. 3. There were 134 PSVCs with a burden of 0.04 %. There were 8 occurrences of Supraventricular Tachycardia with the longest episode 1min 29s, Day :28:49 pm and the fastest episode 183 bpm, :28:47 pm. 4.There were 0 Patient reported events. TTE 2019 CONCLUSIONS ?1. Normal left ventricular cavity size and systolic function. ?Left ventricular ejection fraction is estimated at 60 %. No ?diagnostic regional wall motion abnormalities. Normal diastolic ?function. ?2. Normal right ventricular size and systolic function. ?3. Pulmonary artery pressure estimated at 31 mmHg. ?4. No significant valvular abnormality. ?5.? No prior similar studies to compare. Hepatic Biliary colic GI Gastroesophageal Reflux Disease (Well controlled) Metabolic Diabetes Mellitus, Hyperlipidemia and Morbid Obesity [facility] [place] Fibromyalgia and Osteoarthritis/DJD Neuropsych Seizure (Well controlled ) Anesthetic Plan ASA status: 3 Anesthesia: Anesthesia Evaluation and General Other: We discussed risk and benefits of general anesthesia including PONV, sore throat (sometimes severe), corneal abrasion, positioning and peripheral nerve injuries, life threatening allergic reaction, post operative ICU admission requiring prolonged intubation, aspiration, stroke, heart attack, , and rare incidences of recall. Patient consents to proceed with general anesthesia. Pre op famotidine, scopolamine, diphenhydramine. Risk of > 500 ml blood loss (7ml/kg in children): No Medications/Allergies Home Medications Medication Instructions Recorded Confirmed Last Taken Type Oxygen 2 L #1 ea 11/25/19 11/10/21 Unknown Rx Probiotic 1 tab PO DAILY 01/30/20 11/15/21 11/14/21 History syringe with needle, safety 3 mL #1 ea 03/30/21 11/10/21 Unknown Rx 25 gauge x 1 (Easy Touch SheathLock Syringe with Needle) diclofenac sodium 1 % topical gel 2 g topical QID 30 days #100 grams 07/28/21 11/15/21 11/14/21 Rx (Voltaren Arthritis Pain) albuterol sulfate 90 mcg/actuation 2 puff inhalation QID #8.5 grams 09/14/21 11/15/21 11/08/21 Rx aerosol inhaler (ProAir HFA) baclofen 20 mg tablet 20 mg PO .at bedtime spasms 30 09/14/21 11/15/21 11/14/21 Rx days #30 tabs blood sugar diagnostic #120 ea 09/14/21 11/10/21 Unknown Rx cyanocobalamin (vitamin B-12) 1,000 mcg IM .monthly #1 mL 09/14/21 11/15/21 Unknown Rx 1,000 mcg/mL injection solution dapagliflozin 10 mg tablet 10 mg PO DAILY #30 tabs 09/14/21 11/15/21 11/14/21 Rx (Farxiga) dulaglutide 4.5 mg/0.5 mL 4.5 mg (0.5 mL) SUBCUT .weekly #2 09/14/21 11/15/21 11/13/21 Rx subcutaneous pen injector mL (Trulicity) duloxetine 30 mg capsule,delayed 30 mg PO .in PM #30 caps 09/14/21 11/15/21 11/14/21 Rx release (Cymbalta) duloxetine 60 mg capsule,delayed 60 mg PO DAILY #30 caps 09/14/21 11/15/21 11/15/21 Rx release (Cymbalta) ergocalciferol (vitamin D2) 1,250 50,000 unit PO .weekly #4 caps 09/14/21 11/15/21 11/11/21 Rx mcg (50,000 unit) capsule (Vitamin D2) hydralazine 10 mg tablet 10 mg PO BID #60 tabs 09/14/21 11/15/21 11/14/21 Rx insulin detemir U-100 100 unit/mL 100 unit SUBCUT BID 30 days #60 mL 09/14/21 11/15/21 11/14/21 Rx (3 mL) subcutaneous pen (Levemir 50 FlexTouch U-100 Insulin) isosorbide mononitrate 30 mg 30 mg PO DAILY #30 tabs 09/14/21 11/15/21 11/14/21 Rx tablet,extended release 24 hr lisinopril 40 mg tablet 40 mg PO DAILY #30 tabs 09/14/21 11/15/21 11/14/21 Rx metoprolol tartrate 75 mg tablet 75 mg PO BID #60 tabs 09/14/21 11/15/21 11/15/21 Rx pantoprazole 40 mg tablet,delayed 40 mg PO DAILY #30 tabs 09/14/21 11/15/21 11/14/21 Rx release (Protonix) pregabalin 300 mg capsule (Lyrica) 300 mg PO BID 30 days #60 caps 09/14/21 11/15/21 11/14/21 Rx rosuvastatin 20 mg tablet (Crestor) 20 mg PO DAILY #30 tabs 09/14/21 11/15/21 11/14/21 Rx zaleplon 10 mg capsule 10 mg PO BEDTIME #30 caps 09/14/21 11/15/21 11/14/21 Rx nystatin 100,000 unit/gram topical 1 applic topical BID #60 grams 10/16/21 11/15/21 11/13/21 Rx powder zonisamide 100 mg capsule 100 mg PO BID 11/04/21 11/15/21 11/15/21 History Allergies Allergy/AdvReac Type Severity Reaction Status Date / Time latex Allergy Intermediate hives Verified 11/15/21 06:17 simvastatin Allergy Unknown Unknown Verified 11/15/21 06:17 adhesive tape Allergy ALGY-Rash Verified 11/15/21 06:17 aspirin Allergy ALGY-Hives Verified 11/15/21 06:17 calcium carbonate Allergy rash Verified 11/15/21 06:17 [From Salagen (aspirin)] hydromorphone [From Dilaudid] Allergy ADR-Nausea Verified 11/15/21 06:17 magnesium Allergy rash Verified 11/15/21 06:17 [From Salagen (aspirin)] [facility] Anesthesia Medical History Allergy-induced asthma CAD (coronary artery disease) Chronic arthritis Chronic back pain Diabetes Diabetes mellitus with hyperglycemia DM type 2, uncontrolled, with neuropathy Fibromyalgia Frequent falls GERD (gastroesophageal reflux disease) Hyperlipidemia Hypertension Insomnia Juvenile epilepsy Left knee pain Lumbar pain with radiation down leg Obesity, morbid, BMI 40.0-49.9 Primary osteoarthritis of right knee Recurrent biliary colic SVT (supraventricular tachycardia) Syncope Systolic heart failure Type 2 diabetes mellitus Vitamin D deficiency Surgical History Previous section Family History Other CAD (coronary artery disease) Diabetes Social History Smoking and tobacco status: never smoked Second hand smoke exposure: No Smoking risk assessment/counseling performed?: No Alcohol intake: never Desire information about alcohol rehabilitation?: No Counseling given: No Desire information about substance/drug rehabilitation?: No Counseling given: No Adopted: No Caregiver/support person: No Lives independently: Yes Household members: spouse Housing: House Marital status: Number of children: 3 service: No Current occupational status: unemployed History of recent travel: No Current gender identity: Female Data Anesthesia Cardiac Studies: Echocardiogram Ultrasound 03/08/19 Holter Monitor 06/20/21
[2021-11-15] MEDS: famotidine 20 mg/2 mL INJ IVP ×2 (07:56→16:42)
[2021-11-15] MEDS: diphenhydrAMINE 50 mg/mL SDV 1mL 12.5 MG IVP (07:56)
--- NOTE | 2021-11-15 08:42 | W.PM.OPSUD ---
Surgery/Procedure H&P Update DATE OF PROCEDURE: November 15, 2021 DATE H&P PERFORMED: 11/09/21 H&P UPDATE INFORMATION: I have reviewed H&P completed within last 30 days, I have examined patient prior to procedure and Changes to prior documentation as noted here (Patient reports that she lost 6 pounds) CHANGES TO PREVIOUS DOCUMENTATION: Patient understands if the liver is bigger in size the procedure may be aborted for her safety PREOP DIAGNOSIS: recurrent biliary colic PRIMARY INDICATION FOR PROCEDURE: The same PLANNED PROCEDURE: Operation Date: 11/15/21 08:20 Proposed Procedures p Laparoscopic Gastric Sleeve w/ EGD [id number],E66.01(Not Applicable) - Lyle Blas MD
[2021-11-15] MEDS: ceFAZolin 2,000 MG in sodium chloride 0.9% (plus) 50 ML 100 MG IV (09:02)
--- NOTE | 2021-11-15 11:27 | PM.OP ---
Operative Report Date of procedure: November 15, 2021 Pre-op diagnosis: Preop Diagnosis recurrent biliary colic Procedure done: Laparoscopic vertical sleeve gastrectomy with intraoperative EGD Specimens removed/disposition: Subtotal gastrectomy sutures marked approximately status post gastric sleeve Surgeon: Lyle Blas MD [employer] Department Chair: Surgical jennifer Mott and Hubert Circulating nurses Fatou Thao and Regina Loredo Anesthesia: General ([employer] Yaa) Estimated blood loss (mL): 15 IV fluids (mL): 1,100 Urine output (mL): 100 Procedure: Patient was identified in the holding area, appropriate pharmacologic DVT prophylaxis was given and preoperative IV fluid hydration, patient was then taken to the operating room where the patient was placed in supine position, intubated by anesthesia prophylactic antibiotics were given per protocol, Time-out was done verifying the patient's name/date of /planned procedure and destination after the procedure, all were in agreement.SCDs confirmed to be functioning, and beta nash protocol was confirmed. A Saunders catheter was inserted by the circulating nurse revealing clear urine. A foot board was applied to secure the patient while the patient is placed in reversed Trendelenburg, all pressure points were padded, and the patient was appropriately secured to the table, anesthesia was asked to rotate the table back and forth to verify that the patient is appropriately secured, and that was the case. The abdomen was prepped and draped under the usual sterile technique. A transverse incision was made with a 15 blade scalpel approximately 15 cm below the xiphoid process and 3 cm left of the midline. A 5 mm optical trocar port was placed under direct vision into the peritoneal cavity without initial evidence of injury to peritoneal structures upon entry. The peritoneal cavity was insufflated with carbon dioxide gas up to 15 mmHg pressure. A 45? angle laparoscopy was placed through the port into the peritoneal cavity there was no significant blood, fluid, or evidence of intra-abdominal injury under direct visualization, Longer trocars were then used; a 12 mm trocar port was placed in the right epigastric region and a fourth 5 mm trocar port was placed in the mid epigastric region more caudad than and medial to the previous port. A 5 mm trocar port was placed in the left lateral flank and additional 5 mm trocar was inserted midway between the left lateral flank trocar and the initial 5 mm trocar. There after the index 5 mm trocar was switched to a 12 mm trocar under direct visualization after extending the skin incision. I lifted the omentum up to make sure there were no injuries encountered from the initial trocar insertion, the underlying transverse colon and small bowel viscera were normal. Noticed some adhesions towards the lower central part of the abdomen away from the trocar site. A subxiphoid stab incision was made and dissection into the peritoneum with 5 mm obturator. A grasping laparoscopic clamp was inserted through here and clamped to the right taylor of the diaphragm to elevate the liver for the entirety of the case. All trocars inserted were long arc trocars due to the thick layer of subcutaneous tissue that the patient has.Patient was then placed in the reversed Trendelenburg. Following this, the greater curvature of the stomach was freed from the omentum using the ENSEAL device. This division included the short gastric vessels proximally. This dissection was carried from approximately 4 cm-6 cm proximal to the pylorus and extending all the way up to the angle of Hiss. During this process the posterior aspect of the stomach was mobilized from the underlying peritoneum and the posterior aspect of the stomach was well exposed. With the greater curvature of the stomach exposed from within 4-6 cm of the pylorus and extending to the angle of Hiss, which also included the posterior stomach, a 40 Argentine standard template passed under direct vision down the esophagus, stomach, and into the first part of the duodenum by the anesthesia provider and under direct guidance and visualization by me, via the laparoscopy. Using the template 40 Argentine aligned along the lesser curvature of the stomach and all the way to the first part of the Duodenum, the 40 Argentine Bougie was used as a template the laparoscopic vertical gastric sleeve was performed starting from a point about 5 cm from the pylorus along the greater curvature. Using the [place] Laparoscopic JAMAR linear cutting stapler with [employer] Endopath enforcement, a series of nelly were used to transect the stomach in a vertical fashion along the left side of the template. Through the entire division of the stomach using the staplers, the template was always checked to be in good place and well aligned to the lesser curvature while dividing the stomach. This was carried all the way to the angle of Hiss. [place] 60 mm Green loads were used for the distal third of the stomach and Gold loads were used for the more proximal part of the stomach and then blue loads with reinforcement. All staplers were reinforced by Endopath. The staple line along the remaining tubularized stomach was tested for leaks and bleeding under direct vision as the 40 Argentine template was exchanged (and there was no evidence of blood on the tip of the template) by a standard diagnostic EGD via the mouth by my me after I scrubbed out, insufflation was achieved using CO2 gas and the staple line submerged under saline, meanwhile a clamp was applied distally onto the end of the tubularized stomach to allow insufflation test for leak. There was no evidence of leak .There was adequate hemostasis along the staple line.EGD was taken out at this point after deflation of the tubularized stomach. I elected to apply [id number] 2-0 silk with omental flap towards the GE junction there was some oozing. I scrubbed the back in. The transected partial stomach, which included the greater curvature, was removed from the peritoneum through the first 12 mm trocar site, and was sent for permanent pathology. Prior to closure of the fascia. A final look laparoscopy identified no injuries or bleeding. Except for some oozing from the staple line and 5 mm clips were applied. Bilateral TAP (transversus abdominous plain peripheral nerve block) block using Exparel 20 mL Exparel,40 ml Normal saline,20 ml bupivacaine 0.25% 30 mL on each side injected, 20 mL injected the port sites. An interrupted #1 PDS suture on a granny needle suture passer was used to close the right epigastric and the other 12 mm trocar left of the midline fascial defects under direct visualization. The other trocars were removed under direct vision and no evidence of bleeding was identified. The pneumoperitoneum was decompressed. All skin incisions were irrigated with saline, then closed with nelly, followed by application of sterile dressings. The patient was extubated and taken to the recovery room with normal vital signs. Saunders catheter was maintained All counts of instruments, sponges and needles were completed at the end of the procedure I was present for the whole entire procedure
[2021-11-15] MEDS: ondansetron 2 mg/ML SDV 2 mL 4 MG IVP (12:17)
[2021-11-15 12:43] LABS: Glucose Point of Care 198 mg/dL (70-110)
[2021-11-15] MEDS: fentaNYL 50 mcg/mL INJ 2mL IVP (14:56)
[2021-11-15] MEDS: morphine 4 mg/mL SDV 1 mL 2 MG IVP ×2 (16:42→20:06)
[2021-11-15] MEDS: metoprolol tartrate 1 mg/1 mL SDV 5 mL 5 MG IVP ×2 (16:42→20:52)
[2021-11-15] MEDS: ondansetron 2 mg/ML SDV 2 mL 4 MG (16:43)
[2021-11-15] MEDS: sodium chloride 0.9% 1,000 ML 100 ML IV (16:43)
[2021-11-15 18:05] LABS: Glucose Point of Care 224 mg/dL (70-110)
[2021-11-15] MEDS: metoclopramide 5 mg/mL SDV 2 mL IVP (19:13)
[2021-11-15] MEDS: HYDROmorphone 1 mg/mL INJ 1 mL IVP (22:12)
[2021-11-16] VITALS (11 sets, daily range): BP systolic 115–170; BP diastolic 78–100; PULSE 57–74; RESP 14–18; TEMP 36.6–37; O2SAT 92–94
[2021-11-16] MEDS: metoprolol tartrate 1 mg/1 mL SDV 5 mL 5 MG IVP ×5 (00:12→15:15)
[2021-11-16] MEDS: sodium chloride 0.9% 1,000 ML 100 ML IV ×2 (02:31→15:14)
[2021-11-16] MEDS: famotidine 20 mg/2 mL INJ IVP ×2 (04:19→17:18)
[2021-11-16] MEDS: acetaminophen 1,000 MG/100 ML PIGGYBACK 400 MG IV (04:36)
[2021-11-16 04:53] LABS: Hematocrit 47.7 % (37.0-47.0); Hemoglobin 15.3 g/dL (11.5-15.3)
[2021-11-16 05:21] LABS: Anion Gap 17.3 (5-19); Blood Urea Nitrogen 10 mg/dL (6-20); Carbon Dioxide 22 mmol/L (22-29); Chloride 103 mmol/L (98-107); Glomerular Filtration Rate 127.2 mL/min (90-130); Glucose 167 mg/dL (65-115); Osmolality Calculated 289 mOsm/kg (285-295); Potassium 4.3 mmol/L (3.5-5.1); Sodium 138 mmol/L (136-145)
[2021-11-16] MEDS: morphine 4 mg/mL SDV 1 mL 2 MG IVP (06:02)
[2021-11-16 06:28] LABS: Glucose Point of Care 151 mg/dL (70-110)
[2021-11-16] MEDS: heparin 5,000 unit/mL INJ 1 mL 5000 UNIT SUBCUT ×3 (06:28→21:42)
--- NOTE | 2021-11-16 06:58 | PM.PN ---
Subjective Subjective: Patient overall feels well and pain is under appropriate control, adequate urine output and stable vital sign. Medications: Reviewed: Yes Vitals/I&O/Wt Last Vital Signs Temp 98.6 F 11/16/21 03:42 Pulse 74 11/16/21 03:42 Resp 18 11/16/21 06:02 BP 149/81 11/16/21 03:42 Pulse Ox 92 11/16/21 03:42 O2 Del Method 11/16/21 03:42 O2 Flow Rate 2 11/15/21 23:28 FiO2 3 11/15/21 13:18 11/15/21 11/15/21 11/16/21 14:59 22:59 06:59 Intake Total 550 / 550 1200 / 1750 1080 / 2830 Output Total 315 / 315 850 / 1165 Balance 235 / 235 1200 / 1435 230 / 1665 Weight last 48 hrs Weight 297 lb Physical Exam Narrative: Patient is conscious alert oriented X3 No apparent distress BMI 46.5 Head and neck examination PERRLA no masses no cervical lymphadenopathy no jaundice Cardiac examination audible S1-S2 no murmurs no gallops no arrhythmias Chest is clear bilateral,abscence of Rhonchi or wheezes,no surgical emphysema Abdomen nontender except slightly at the incision site nondistended soft no organomegaly guarding or rigidity/no signs of peritonitis Saunders catheter in place with clear urine Extremities no cyanosis no clubbing no edema Urinary Catheter Management: Latex Free: Cath Placed During This Visit: yes Reason for Continuing Indwelling Catheter: Acute Urinary Retention or Obstruction Urinary Catheter Date of Insertion: 11/15/21 Urinary Catheter Time of Insertion: 09:30 Data : 11/16/21 04:40 11/16/21 04:40 A&P Assessment and plan (1) S/P laparoscopic sleeve gastrectomy: Assessment 56 years old female patient status post laparoscopic vertical sleeve gastrectomy on 1322 Plan Encourage ambulation down the gomez 3-4 times a day at least 300 feet every time, patient may require assistance. Incentive spirometer every hour Low-dose insulin sliding scale Will follow on upper GI study once this done and being cleared we will start the patient on post bariatric phase 1 diet DC Saunders catheter Labs look appropriate Continue educating patient and the staff about the importance of ambulation Assurance and education All questions have been answered and all concerns have been addressed to patient's satisfaction. Status: Acute Attestations Medical Necessity Statement*: Patient requiring inpatient hospitalization passing 2 midnights for perioperative care status post laparoscopic vertical sleeve gastrectomy. Time Spent in Patient Care: 16 - 35 minutes Coding Level of Care Code Acute Wildlife Enforcement Major for Chg Fwd Diagnoses S/P laparoscopic sleeve gastrectomy Z98.84
--- NOTE | 2021-11-16 08:00 | FL_ITS ---
WS: [id number] [place] upper GI gastrografin 98652 REASON FOR EXAM: Status Post Gastric Sleeve FLUOROSCOPY TIME: 1min [id number] # OF SPOT FILMS: 6 FINDINGS: Patient was examined in the upright position. A single swallow of water-soluble contrast was used. Co ntrast flowed normally from the esophagus into the stomach. Contrast flowed readily through the stomach and gastric sleeve restriction and into the duodenum. There was no extravasation. FL/FL upper GI gastrografin [id number] IMPRESSION: Normal postoperative examination.
[2021-11-16] MEDS: insulin lispro 100 unit/1 mL SUBCUT ×2 (08:54→17:17)
[2021-11-16] MEDS: HYDROmorphone 1 mg/mL INJ 1 mL IVP ×2 (08:55→15:10)
--- NOTE | 2021-11-16 09:09 | PC.CHAP ---
Pastoral Care Encounter/Spiritual Assessment Type of Contact [] Declined application support intern visit [] Patient/Family/Request visit [] Outpatient visit [] Follow-up visit [] Physician referral [] Code/Alert [x] Routine visit [] Staff referral [] Actively dying [x] Patient sleeping [] Family support [] [] Out of room [] Palliative care [] [] Receiving care in room [] Pre-surgical visit [] Trauma [] Long length of stay [] ICU visit [] Other: Relational/Emotional Strength [] Patient feels connected with others/family/visitors/staff [] Distress [] Loneliness/isolation [] Abandonment Spirituality of Patient [] Person of Kalani [] Attends Congregation of their Kalani [] Believes in Prayer [] Reads Bible or Hoahaoism materials [] There are Spiritual issues to be addressed Housekeeper Home Interventions [] Prayer [] Active listening [] Non-anxious presence [] Spiritual/emotional support [] Crisis/trauma care [] Spiritual counseling [] Bereavement support [] Provided bereavement packet [] Provided Bible/devotional materials [] Provided toy/stuffed animal, coloring book to patient or family member [] Provided Communion [] Anointing/[place] [] Salvation [] Completed spiritual assessment [] Other: Impact on Illness or Injury [] Angry [] Fearful [] Anxious [] Often cries [] Exhaustion [] Unable to work [] Unable to attend pentecostalism [] Unable to walk/stand [] Unable to read [] Unable to drive [] Unable to eat/drink [] Unable to sleep [] Unable to be with family [] Patient intubated [] Other: Summary Time spent with patient
[2021-11-16] MEDS: diatrizoate meglumine 30 mL Sol PO (10:08)
[2021-11-16 11:27] LABS: Glucose Point of Care 140 mg/dL (70-110)
--- NOTE | 2021-11-16 17:03 | ANE.PACU2 ---
Inpatient post-anesthesia follow up: Airway intact: Yes Vital signs: Temperature 98.2 F Pulse Rate 67 Respiratory Rate 15 Blood Pressure 162/81 Pulse Oximetry 94 Oxygen Delivery Me thod [ Room Air Current Rate & Del erik] Oxygen Delivery Me thod Room Air Oxygen Flow Rate 2 Fraction of Inspir ed Oxygen 3 Hydration adequate: Yes Nausea and vomiting: No Pain level: 7 Mental status: Baseline
[2021-11-16 17:05] LABS: Glucose Point of Care 142 mg/dL (70-110)
[2021-11-16] MEDS: metoprolol tartrate 50 mg Tablet 75 MG PO (17:18)
[2021-11-16] MEDS: HYDROcodone-acetaminophen 5-325 mg Tablet 1 TAB PO ×2 (17:18→21:42)
[2021-11-16 21:39] LABS: Glucose Point of Care 137 mg/dL (70-110)
[2021-11-17] VITALS (7 sets, daily range): BP systolic 147–152; BP diastolic 86–88; PULSE 51–68; RESP 16–18; TEMP 36.6–37; O2SAT 93–95
--- NOTE | 2021-11-17 01:39 | PC.NURSE ---
Patient asking for home medications Baclofen and Zaleplon. Both of these medications okay by surgery on-call. We do not carry Zaleplon in our pharmacy.
[2021-11-17] MEDS: sodium chloride 0.9% 1,000 ML 50 ML IV (01:45)
[2021-11-17] MEDS: baclofen 10 mg Tablet PO (01:45)
[2021-11-17] MEDS: famotidine 20 mg/2 mL INJ IVP (01:46)
[2021-11-17] MEDS: HYDROcodone-acetaminophen 5-325 mg Tablet 1 TAB PO ×2 (01:46→06:02)
[2021-11-17 02:19] LABS: Hematocrit 45.3 % (37.0-47.0); Hemoglobin 14.4 g/dL (11.5-15.3)
[2021-11-17 02:45] LABS: Anion Gap 14.1 (5-19); Blood Urea Nitrogen 11 mg/dL (6-20); Calcium 8.9 mg/dL (8.5-10.5); Carbon Dioxide 28 mmol/L (22-29); Chloride 104 mmol/L (98-107); Glomerular Filtration Rate 127.2 mL/min (90-130); Glucose 135 mg/dL (65-115); Osmolality Calculated 295 mOsm/kg (285-295); Potassium 4.1 mmol/L (3.5-5.1); Sodium 142 mmol/L (136-145)
--- NOTE | 2021-11-17 04:38 | PC.NURSE ---
Patient ambulated in gomez x2 throughout shift.
[2021-11-17] MEDS: heparin 5,000 unit/mL INJ 1 mL 5000 UNIT SUBCUT (06:03)
[2021-11-17] MEDS: ondansetron 2 mg/ML SDV 2 mL 4 MG IVP (06:07)
--- NOTE | 2021-11-17 06:52 | P.DS_ITS ---
Discharge Providers Date of Admission: 11/15/21 15:14 Date of Discharge: November 17, 2021 Attending Provider at Admission: Lyle Blas MD Attending Provider at Discharge: Lyle Blas MD Primary Care Provider: HARJINDER Andrews Diagnoses at Discharge Discharge Diagnosis (1) S/P laparoscopic sleeve gastrectomy: Status: Inactive Reason for Visit Reason for Visit: Brief History: This is a pleasant 56 years old female patient and the appropriate criteria and based on medical necessity to proceed with weight loss surgery in the form of laparoscopic vertical sleeve gastrectomy. Hospital Course Hospital Course Patient undergone uneventful laparoscopic vertical sleeve gastrectomy and postoperatively she maintained to have adequate urine output and stable vital signs. Upper GI study was done and showed no evidence of leak and she was started on post bariatric phase 1 diet. Tolerated that well and her pain has been under appropriate control. Patient continues to be on pharmacologic and mechanical DVT prophylaxis and was working with incentive spirometer to prevent pneumonia. Saunders catheter was removed postoperatively 1 and patient maintained to be ambulatory. Blood glucose was under appropriate control. Patient met the appropriate and safe criteria to be discharged home on Lovenox, pain medication and nausea medicationAppropriate education was given to the patient to prevent episodes of hypoglycemia by close monitoring of her blood glucose and follow-up with primary care provider within a week from surgery Physical Exam Narrative: Patient is conscious alert oriented X3 No apparent distress BMI 46.5 Head and neck examination PERRLA no masses no cervical lymphadenopathy no jaundice Cardiac examination audible S1-S2 no murmurs no gallops no arrhythmias Chest is clear bilateral,abscence of Rhonchi or wheezes,no surgical emphysema Abdomen nontender except slightly at the incision site nondistended soft no organomegaly guarding or rigidity/no signs of peritonitis Incisions are clean dry and intact and skin nelly in place Extremities no cyanosis no clubbing no edema Urinary Catheter Management: Latex Free: Cath Placed During This Visit: yes Reason for Continuing Indwelling Catheter: Acute Urinary Retention or Obstruction Urinary Catheter Date of Insertion: 11/15/21 Urinary Catheter Time of Insertion: 09:30 Discharge Data Studies Completed and Pending Completed Studies During Hospitalization Category Date Time Status [place] upper GI gastrografin 03179 Routine Exams 11/16/21 08:00 Completed Pending at discharge Category Date Time Status ES surgery / GI images Routine Exams 11/15/21 08:30 Taken Basic Metabolic Panel AM LABS Lab 11/18/21 04:00 Ordered Hemoglobin and Hematocrit AM LABS Lab 11/18/21 04:00 Ordered Pathology: Surgical [PTH] Routine Pth 11/15/21 11:21 Received Radiology Impressions Gastrografin Study 11/16/21 08:00 IMPRESSION: Normal postoperative examination. Laboratory Results Hgb 14.4 g/dL (11.5-15.3) 11/17/21 01:44 Hct 45.3 % (37.0-47.0) 11/17/21 01:44 Sodium 142 mmol/L (136-145) 11/17/21 01:44 Potassium 4.1 mmol/L (3.5-5.1) 11/17/21 01:44 Chloride 104 mmol/L (98-107) 11/17/21 01:44 Carbon Dioxide 28 mmol/L (22-29) 11/17/21 01:44 Anion Gap 14.1 (5-19) 11/17/21 01:44 BUN 11 mg/dL (6-20) 11/17/21 01:44 Creatinine 0.5 mg/dL (0.5-0.9) 11/17/21 01:44 GFR Calculation 127.2 mL/min (90-130) 11/17/21 01:44 Glucose 135 mg/dL (65-115) H 11/17/21 01:44 POC Glucose 137 mg/dL (70-110) H 11/16/21 21:36 Calculated Osmolality 295 mOsm/kg (285-295) 11/17/21 01:44 Calcium 8.9 mg/dL (8.5-10.5) 11/17/21 01:44 Additional Data from Hospital Stay Upper GI study did show FINDINGS: Patient was examined in the upright position. A single swallow of water-soluble contrast was used. Contrast flowed normally from the esophagus into the stomach. Contrast flowed readily through the stomach and gastric sleeve restriction and into the duodenum. There was no extravasation. FL/FL upper GI gastrografin [id number] IMPRESSION: Normal postoperative examination. Procedures Performed Procedure done: Laparoscopic vertical sleeve gastrectomy with intraoperative EGD Specimens removed/disposition: Subtotal gastrectomy sutures marked approximately status post gastric sleeve Surgeon: Lyle Blas MD Director Of Market Research: Surgical techs Tiera and Hubert Circulating nurses Fatou Thao and Regina Loredo Anesthesia: General (BHAVANA Mon) Estimated blood loss (mL): 15 IV fluids (mL): 1,100 Urine output (mL): 100 Procedure: Patient was identified in the holding area, appropriate pharmacologic DVT prophylaxis was given and preoperative IV fluid hydration, patient was then taken to the operating room where the patient was placed in supine position, intubated by anesthesia prophylactic antibiotics were given per protocol, Time- out was done verifying the patient's name/date of /planned procedure and destination after the procedure, all were in agreement.SCDs confirmed to be functioning, and beta nash protocol was confirmed. A Saunders catheter was inserted by the circulating nurse revealing clear urine. A foot board was applied to secure the patient while the patient is placed in reversed Trendelenburg, all pressure points were padded, and the patient was appropriately secured to the table, anesthesia was asked to rotate the table back and forth to verify that the patient is appropriately secured, and that was the case. The abdomen was prepped and draped under the usual sterile technique.? A transverse incision was made with a 15 blade scalpel approximately 15 cm below the xiphoid process and 3 cm left of the midline. A 5 mm optical trocar port was placed under direct vision into the peritoneal cavity without initial evidence of injury to peritoneal structures upon entry. The peritoneal cavity was insufflated with carbon dioxide gas up to 15 mmHg pressure. A 45? angle laparoscopy was placed through the port into the peritoneal cavity there was no significant blood, fluid, or evidence of intra- abdominal injury under direct visualization, Longer trocars were then used; a 12 mm trocar port was placed in the right epigastric region and a fourth 5 mm trocar port was placed in the mid epigastric region more caudad than and medial to the previous port. A 5 mm trocar port was placed in the left lateral flank and additional 5 mm trocar was inserted midway between the left lateral flank trocar and the initial 5 mm trocar.? There after the index 5 mm trocar was switched to a 12 mm trocar under direct visualization after extending the skin incision. I lifted the omentum up to make sure there were no injuries encountered from the initial trocar insertion, the underlying transverse colon and small bowel viscera were normal.? Noticed some adhesions towards the lower central part of the abdomen away from the trocar site. A subxiphoid stab incision was made and dissection into the peritoneum with 5 mm obturator.? A grasping laparoscopic clamp was inserted through here and clamped to the right taylor of the diaphragm to elevate the liver for the entirety of the case.? All trocars inserted were long arc trocars due to the thick layer of subcutaneous tissue that the patient has.Patient was then placed in the reversed Trendelenburg. Following this, the greater curvature of the stomach was freed from the omentum using the ENSEAL device.? This division included the short gastric vessels proximally.? This dissection was carried from approximately 4 cm-6 cm proximal to the pylorus and extending all the way up to the angle of Hiss. During this process the posterior aspect of the stomach was mobilized from the underlying peritoneum and the posterior aspect of the stomach was well exposed. With the greater curvature of the stomach exposed from within 4-6 cm of the pylorus and extending to the angle of Hiss, which also included the posterior stomach, a 40 [place]ian standard template passed under direct vision down the esophagus, stomach, and into the first part of the duodenum by the anesthesia provider and under direct guidance and visualization by me, via the laparoscopy. Using the template 40 [place]itanian aligned along the lesser curvature of the stomach and all the way to the first part of the Duodenum, the 40 [place]ian Bougie was used as a template the laparoscopic vertical gastric sleeve was performed starting from a point about 5 cm from the pylorus along the greater curvature. Using the Bend Laparoscopic JAMAR linear cutting stapler with [employer] Endopath enforcement, a series of nelly were used to transect the stomach in a vertical fashion along the left side of the template. Through the entire division of the stomach using the staplers, the template was always checked to be in good place and well aligned to the lesser curvature while dividing the stomach. This was carried all the way to the angle of Hiss. Bend 60 mm Green loads were used for the distal third of the stomach and Gold loads were used for the more proximal part of the stomach and then blue loads with reinforcement. All staplers were reinforced by Endopath. The staple line along the remaining tubularized stomach was tested for leaks and bleeding under direct vision as the 40 [place]ian template was exchanged (and there was no evidence of blood on the tip of the template) by a standard diagnostic EGD via the mouth by my me after I scrubbed out, insufflation was achieved using CO2 gas and the staple line submerged under saline, meanwhile a clamp was applied distally onto the end of the tubularized stomach to allow insufflation test for leak. There was no evidence of leak .There was adequate hemostasis brenda ng the staple line.EGD was taken out at this point after deflation of the tubularized stomach.? I elected to apply [id number] 2-0 silk with omental flap towards the GE junction there was some oozing. I scrubbed the back in. The transected partial stomach, which included the greater curvature, was removed from the peritoneum through the first 12 mm trocar site, and was sent for permanent pathology. Prior to closure of the fascia.? A final look laparoscopy identified no injuries or bleeding.? Except for some oozing from the staple line and 5 mm clips were applied. Bilateral TAP (transversus abdominous plain peripheral nerve block) block using Exparel 20 mL Exparel,40 ml Normal saline,20 ml bupivacaine 0.25% 30 mL on each side injected, 20 mL injected the port sites. An interrupted #1 PDS suture on a granny needle suture passer was used to close the right epigastric and the other 12 mm trocar left of the midline fascial defects under direct visualization. The other trocars were removed under direct vision and no evidence of bleeding was identified. The pneumoperitoneum was decompressed. All skin incisions were irrigated with saline, then closed with nelly, followed by application of sterile dressings. The patient was extubated and taken to the recovery room with normal vital signs. Saunders catheter was maintained All counts of instruments, sponges and needles were completed at the end of the procedure I was present for the whole entire procedure Dictated By: Lyle Blas MD Signed By: Lyle Blas MD Signed Date/Time: 11/15/21 1527 Vitals Last Vital Signs Temp 98 F 11/17/21 04:00 Pulse 66 11/17/21 04:28 Resp 16 11/17/21 04:00 BP 147/88 11/17/21 04:00 Pulse Ox 95 11/17/21 04:00 O2 Del Method 11/17/21 00:51 O2 Flow Rate 2 11/16/21 08:00 FiO2 3 11/15/21 13:18 Discharge Plan Discharge Patient Disposition: Home Condition: Stable Prescriptions: New Lovenox 40 mg/0.4 mL syringe 40 mg SUBCUT DAILY 10 Days Qty: 4 0RF hydrocodone-acetaminophen 5-325 mg tablet 1 tab PO Q6H PRN (Reason: pain) Qty: 28 0RF ondansetron 4 mg tablet,disintegrating 4 mg PO Q6H PRN (Reason: nausea and vomiting) Qty: 30 1RF Continued (DME) Oxygen 2 L See Rx Instructions .Route .MEDSUPPLY Qty: 1 0RF Rx Instructions: Use 2L NC at night for 99 months (DME) Easy Touch SheathLock Syrg-Ndl 3 mL 25 gauge x 1 syringe See Rx Instructions .ROUTE .MEDSUPPLY Qty: 1 0RF Rx Instructions: use monthly with Vitamin B12 ProAir HFA 90 mcg/actuation HFA aerosol inhaler 2 puff INHALATION QID Qty: 8.5 2RF baclofen 20 mg tablet 20 mg PO .at bedtime 30 Days Qty: 30 2RF cyanocobalamin (vitamin B-12) 1,000 mcg/mL solution 1,000 mcg IM .monthly Qty: 1 2RF (DME) blood sugar diagnostic Strip See Rx Instructions .ROUTE .MEDSUPPLY Qty: 120 5RF Rx Instructions: use 4 times day Farxiga 10 mg tablet 10 mg PO DAILY Qty: 30 2RF Trulicity 4.5 mg/0.5 mL pen injector 4.5 mg SUBCUT .weekly Qty: 2 2RF Rx Instructions: pt states takes on sunday duloxetine [Cymbalta] 30 mg capsule,delayed release(DR/EC) 30 mg PO .in PM Qty: 30 2RF duloxetine [Cymbalta] 60 mg capsule,delayed release(DR/EC) 60 mg PO DAILY Qty: 30 2RF Rx Instructions: use only 60mg with AM and 30mg in PM ergocalciferol (vitamin D2) [Vitamin D2] 1,250 mcg (50,000 unit) capsule 50,000 unit PO .weekly Qty: 4 2RF Rx Instructions: takes on sunday hydralazine 10 mg tablet 10 mg PO BID Qty: 60 2RF Levemir FlexTouch U-100 Insuln 100 unit/mL (3 mL) insulin pen 100 unit SUBCUT BID 30 Days Qty: 60 2RF isosorbide mononitrate 30 mg tablet extended release 24 hr 30 mg PO DAILY Qty: 30 2RF Rx Instructions: Need 30mg due to low heart rate lisinopril 40 mg tablet 40 mg PO DAILY Qty: 30 2RF metoprolol tartrate 75 mg tablet 75 mg PO BID Qty: 60 2RF pantoprazole [Protonix] 40 mg tablet,delayed release (DR/EC) 40 mg PO DAILY Qty: 30 2RF pregabalin [Lyrica] 300 mg capsule 300 mg PO BID 30 Days Qty: 60 2RF rosuvastatin [Crestor] 20 mg tablet 20 mg PO DAILY Qty: 30 2RF zaleplon 10 mg capsule 10 mg PO BEDTIME Qty: 30 2RF diclofenac sodium [Voltaren Arthritis Pain] 1 % gel 2 g topical QID 30 Days Qty: 100 0RF Rx Instructions: apply to single elbow, wrist or hand; for hand includes palm/fingers/back of hand nystatin 100,000 unit/gram powder 1 applic topical BID Qty: 60 0RF Probiotic 1 tab PO DAILY zonisamide 100 mg capsule 100 mg PO BID Discharge Orders: Discharge Order (Routine); Ordered 11/17/21 Ordered By: Lyle Blas Referrals: Lyle Blas MD [Physician] - 11/24/21 1:50 pm (Return to bariatric surgery office in 1 week) Discharge Diet: As Directed Discharge Activity: Limit activity as instructed Patient Instructions: Hydrocodone/Acetaminophen (By mouth), Ondansetron (By mouth), Enoxaparin (By injection), How to Give a Subcutaneous Injection (GEN), Nutrition after Bariatric Surgery (GEN), Laparoscopic Sleeve Gastrectomy (GEN), Opioid Safety Activity Restrictions/Additional Instructions: 1. Patient can shower after 48 hours from surgery 2. Remove secondary dressing can take down after 48 hours. 3. Up and walking as tolerated 4. Do lift more than 5 pounds first 2 weeks after surgery and not more than 25 pounds 6 to 8 weeks after surgery. 5. Do not operate heavy machinery or drive while using pain medications. 6.Contact the office or return to the ER for worsening nausea vomiting fevers or chills, or noticing any redness around incision sites or discharge. Diet education Phase 1 When do I start this stage? The day after your surgery (Day 1). You will get to start this stage after you pass the upper GI study and/or methylene blue test. How long will I be on this stage? Day 1 thru day 2 or until you are discharged from the hospital. Goals: ? Drink 4 to 6 ounces of fluid per hour. ? Aim for a total of 64 ounces of fluid daily. Add the following food/beverages to your diet: Clear broth or bouillon 100% no sugar added apple, cranberry, or grape juice. Dilute with 1 part juice and 1 part water. No citrus justice (i.e. organe juice, grapefruit juice, etc.) Limit to 8 ounces per or less per day. Tea (do not add milk) Coffee (do not add milk or creamer) Sugar-free gelatin Sugar-free popsicles Sugar-free flavored beverages (Crystal Light?, Sugar-Free Duane-Aid?, Propel?, PowerAde Zero?, Vitamin Water 10?, Fruit?0?, Sob? Lean?, etc.) Artificial sweetener of your choice Stage 2 When do I start this stage? Day 3 (or once you are discharged from the hospital) How long will I be on this stage? Day 3 thru Day 13 Goals: ? Drink 4 to 6 ounces of fluid per hour. ? Aim for a total of 64 ounces of fluid daily. ? Aim to meet protein goals with liquid protein supplements Add the following food/beverages to your diet: Protein supplements (thin, water-based supplement may be easier to digest at first while milk-based supplements may feel ``heavy?? and uncomfortable at first) Milk: 1%, skim, light soy milk, or lactose-free milk Discharge Attestations Time Spent in Discharge Care*: greater than 30 min Status at Discharge: Cognitive status at discharge: cognitively intact , Behavioral status at discharge: cooperative , Functional status at discharge: independent ambulation , Overall status at discharge: patient is progressing back to baseline Quality Metrics Clinical Quality Measures [ No reported AMI, CVA or VTE this stay] Coding Level of Care Code Acute Chg FW DC note Diagnoses S/P laparoscopic sleeve gastrectomy Z98.84
[2021-11-17] MEDS: metoprolol tartrate 50 mg Tablet 75 MG PO (08:10)
[2021-11-17] MEDS: isosorbide mononitrate ER 30 mg Tablet PO (08:10)
== END 2021-11-17 10:45 | disposition home or self-care (01) | DRG 620 ==
LOC: MEDSURG 15:15
PROVIDERS: Admitting Provider Surgery; PCP Nurse Practitioner; Visit Provider Surgery
PROC: 0DB64Z3 Excision of Stomach, Percutaneous Endoscopic Approach, Vertical (ICD-10-PCS; CPT 43775; principal; 2021-11-15 08:20)
PROC: 0DJ08ZZ Inspection of Upper Intestinal Tract, Via Natural or Artificial Opening Endoscopic (ICD-10-PCS; CPT 43235; 2021-11-15 08:20)
DX: E66.01 Morbid (severe) obesity due to excess calories (principal); I47.1 Supraventricular tachycardia; I50.22 Chronic systolic (congestive) heart failure; I11.0 Hypertensive heart disease with heart failure; Z68.42 Body mass index [BMI] 45.0-49.9, adult; K80.50 Calculus of bile duct without cholangitis or cholecystitis without obstruction; J45.909 Unspecified asthma, uncomplicated; G47.30 Sleep apnea, unspecified; I25.10 Atherosclerotic heart disease of native coronary artery without angina pectoris; E78.5 Hyperlipidemia, unspecified; M79.7 Fibromyalgia; K21.9 Gastro-esophageal reflux disease without esophagitis; E11.40 Type 2 diabetes mellitus with diabetic neuropathy, unspecified; M17.11 Unilateral primary osteoarthritis, right knee; G89.29 Other chronic pain; M54.9 Dorsalgia, unspecified; Z90.49 Acquired absence of other specified parts of digestive tract; Z99.89 Dependence on other enabling machines and devices; Z79.4 Long term (current) use of insulin; Z98.891 History of uterine scar from previous surgery; Z79.899 Other long term (current) drug therapy; Z79.891 Long term (current) use of opiate analgesic
CPT/HCPCS: 36415; 36416; 51702; 74240; 80048; 82962; 85014; 85018; 88309; 96372; C9113; C9290; J0330; J1100; J1170; J1200; J1644; J1815; J2250; J2270; J2370; J2405; J2710; J2765; J3010; J3490; J7030; Q9963

== ENCOUNTER → 2021-12-22 10:01 | Outpatient (BNVA) | payer MEDICAID, SELFPAY | PROVIDERS: PCP Nurse Practitioner; Visit Provider Nurse Practitioner | DX: E11.65 Type 2 diabetes mellitus with hyperglycemia (principal); E55.9 Vitamin D deficiency, unspecified | CPT/HCPCS: 80053; 80061; 82306; 83036; 85025 ==

== ENCOUNTER → 2022-02-21 09:52 | Outpatient (BNVA) | payer MEDICAID, SELFPAY | PROVIDERS: PCP Nurse Practitioner; Visit Provider Nurse Practitioner | DX: E11.65 Type 2 diabetes mellitus with hyperglycemia (principal); E55.9 Vitamin D deficiency, unspecified | CPT/HCPCS: 80053; 80061; 82306; 82607; 83036; 84443; 85025 ==

== ENCOUNTER 2022-02-24 14:49 | Outpatient (CLI) | payer MEDICAID, SELFPAY ==
--- NOTE | 2022-02-24 16:00 | MR_ITS ---
WS: [id number] MRI LEFT KNEE HISTORY: Left Knee pain COMPARISON: None available. Quality of this examination is limited by motion. Anterior cruciate ligament: Intact. Posterior cruciate ligament: Intact. Medial collateral ligament: Significantly degraded by motion. Posterior lateral corner structures: Significantly degraded by motion. Medial menisci: Intact. Normal signal, size and shape. Lateral meniscus: Increased fluid and increased T2 signal adjacent to the posterior horn near the men iscal femoral fascicles. Extensor mechanism: Distal quadriceps tendon and patellar tendons are intact. Fluid and soft tissue: Very small joint effusion. Very tiny amount of fluid in Naik's cyst. Osseous and articular structures: Patellofemoral compartment: Normal. Medial compartment: Mild narrowing of the medial compartment. Mild chondromalacia involving the femor al condyle and tibial plateau. No marrow edema. Lateral compartment: Significantly limited by motion. Small amount of fluid extends posterior to the lateral femoral condyle. MR/MR knee LT wo con* [id number] IMPRESSION: 1. Quality of this examination is significantly degraded by motion. 2. Mild narrowing of the medial compartment with chondromalacia. 3. Increase fluid near the posterior horn of the lateral meniscus. Meniscal fe moral fascicle injury should be considered clinically.
== END 2022-02-24 14:50 | disposition home or self-care (01) ==
LOC: RAD 14:49
PROVIDERS: PCP Nurse Practitioner; Visit Provider Orthopaedic Surgery
DX: M25.562 Pain in left knee (principal); M94.262 Chondromalacia, left knee
CPT/HCPCS: 73721

== ENCOUNTER 2022-03-30 09:58 | Day surgery (SDC) | payer MEDICAID, SELFPAY ==
[2022-03-28 12:21] VITALS: BMI 42.3
[2022-03-30] VITALS (12 sets, daily range): BP systolic 137–168; BP diastolic 84–111; PULSE 63–83; RESP 16–20; TEMP 36.1–37.1; O2SAT 95–99
--- NOTE | 2022-03-30 08:23 | W.PM.OPSUD ---
Surgery/Procedure H&P Update DATE OF PROCEDURE: March 30, 2022 DATE H&P PERFORMED: 03/14/22 H&P UPDATE INFORMATION: I have reviewed H&P completed within last 30 days PREOP DIAGNOSIS: Left lateral meniscal tear PLANNED PROCEDURE: Operation Date: 03/30/22 11:35 Proposed Procedures p right knee diagnostic and arthroscopy:[id number],S83.281A(Right) - Calvin Ordonez MD
[2022-03-30] MEDS: sodium chloride 0.9% 1,000 ML 30 ML IV (10:41)
--- NOTE | 2022-03-30 10:52 | P.ANESASSM_ITS ---
Pre-Anesthetic Assessment Height/Weight: Height 1.7 m Weight 122.47 kg Temp Pulse Resp BP Pulse Ox O2 Del Method 98.7 F 63 18 161/87 95 03/30/22 10:25 03/30/22 10:25 03/30/22 10:25 03/30/22 10:25 03/30/22 10:25 03/30/22 10:25 Preop Diagnosis: Lateral meniscal tear left knee Operation Date: 03/30/22 11:35 Proposed Procedures p right knee diagnostic and arthroscopy:27025,S83.281A(Right) - Calvin Ordonez MD Familial anesthetic complications: None Was Beta Victor Manuel taken within 24 hours: Yes Was Clonidine taken within 24 hours: N/A Last intake: Intake Last Liquid Date 03/29/22 Last Liquid Time 19:00 Last Solid Date 03/29/22 Last Solid Time 19:00 Social No alcohol and No tobacco Exam alert, oriented x 3, clear to auscultation bilaterally and regular rate & rhythm Airway Mallampati: Class III Dentition: false Pulmonary Asthma and Sleep Apnea (O2) CV/HEM Arrythmia (SVT), Congestive Heart Failure, Hypertension and Myocardial Infarction (2016) GI Gastroesophageal Reflux Disease sleeve gastrectomy Metabolic Diabetes Mellitus and Morbid Obesity [facility] [place] [facility] [place] Fibromyalgia Neuropsych Seizure Anesthetic Plan ASA status: 4 Anesthesia: General Risk of > 500 ml blood loss (7ml/kg in children): No Medications/Allergies Home Medications Medication Instructions Recorded Confirmed Last Taken Type Oxygen 2 L #1 ea 11/25/19 03/14/22 Unknown Rx diclofenac sodium 1 % topical gel 2 g topical QID 30 days #100 grams 07/28/21 03/30/22 1 Day Ago Rx (Voltaren Arthritis Pain) ~03/29/22 blood sugar diagnostic #120 ea 09/14/21 03/14/22 Unknown Rx dapagliflozin 10 mg tablet 10 mg PO DAILY #30 tabs 11/29/21 03/30/22 1 Day Ago Rx (Farxiga) ~03/29/22 hydralazine 10 mg tablet 10 mg PO BID #60 tabs 11/29/21 03/30/22 1 Day Ago Rx ~03/29/22 blood-glucose meter (OneTouch #1 ea 12/01/21 03/14/22 Unknown Rx Ultra2 Meter kit) nystatin 100,000 unit/gram topical 1 applic topical BID #60 grams 01/21/22 03/28/22 Unknown Rx powder albuterol sulfate 90 mcg/actuation 2 puff inhalation QID #8.5 grams 02/16/22 03/28/22 03/14/22 Rx aerosol inhaler (ProAir HFA) baclofen 20 mg tablet 20 mg PO .at bedtime spasms 30 02/16/22 03/30/22 1 Day Ago Rx days #30 tabs ~03/29/22 cyanocobalamin (vitamin B-12) 1,000 mcg IM .monthly #1 mL 02/16/22 03/30/22 03/07/22 Rx 1,000 mcg/mL injection solution dulaglutide 1.5 mg/0.5 mL 1.5 mg (0.5 mL) SUBCUT .weekly #2 02/16/22 03/28/22 03/26/22 Rx subcutaneous [facility] ergocalciferol (vitamin D2) 1,250 50,000 unit PO .weekly #4 caps 02/16/2203/06 1 Day Ago Rx mcg (50,000 unit) capsule (Vitamin ~03/29/22 D2) hydroxyzine pamoate 50 mg capsule 50 mg PO .at bedtime #30 caps 02/16/22 03/30/22 1 Day Ago Rx ~03/29/22 isosorbide mononitrate 30 mg 30 mg PO DAILY #30 tabs 02/16/22 03/30/22 03/30/22 07:00 Rx tablet,extended release 24 hr metoprolol tartrate 75 mg tablet 75 mg PO BID #60 tabs 02/16/22 03/30/22 3 07:00 Rx pantoprazole 40 mg tablet,delayed 40 mg PO DAILY #30 tabs 02/16/22 03/30/22 1 Day Ago Rx release (Protonix) ~03/29/22 pregabalin 300 mg capsule (Lyrica) 300 mg PO BID 30 days #60 caps 02/16/22 03/28/22 03/28/22 Rx rosuvastatin 20 mg tablet (Crestor) 20 mg PO DAILY #30 tabs 02/16/22 03/30/22 1 Day Ago Rx ~03/29/22 syringe with needle, safety 3 mL #1 ea 02/16/22 03/14/22 Unknown Rx 25 gauge x 1 (Easy Touch SheathLock Syringe with Needle) valsartan 160 mg tablet (Diovan) 160 mg PO DAILY #30 tabs 02/16/22 03/30/22 03/30/22 07:00 Rx venlafaxine 150 mg 150 mg PO QAM #30 caps 02/16/22 03/28/22 03/28/22 Rx capsule,extended release 24 hr (Effexor XR) olanzapine 5 mg tablet (Zyprexa) 5 mg PO DAILY #30 tabs 03/16/22 03/28/22 03/28/22 Rx zonisamide 100 mg capsule 100 mg PO TID 03/28/22 03/28/22 03/28/22 History Allergies Allergy/AdvReac Type Severity Reaction Status Date / Time latex Allergy Intermediate hives Verified 03/30/22 10:12 simvastatin Allergy Unknown Unknown Verified 03/30/22 10:12 adhesive tape Allergy ALGY-Rash Verified 03/30/22 10:12 aspirin Allergy ALGY-Hives Verified 03/30/22 10:12 calcium carbonate Allergy rash Verified 03/30/22 10:12 [From Salagen (aspirin)] magnesium Allergy rash Verified 03/30/22 10:12 [From Salagen (aspirin)] Current Medications Generic Name Dose Route Start Last Admin Trade Name Freq PRN Reason Stop Dose Admin Sodium Chloride 1,000 mls @ 30 mls/hr 03/30/22 10:15 03/30/22 10:41 Sodium Chloride 0.9% IV 03/31/22 10:14 30 mls/hr .Q24H KELLEN Administration PFSH Anesthesia Medical History Allergy-induced asthma Anxiety, generalized CAD (coronary artery disease) Chronic arthritis Chronic back pain Diabetes Diabetes mellitus with hyperglycemia DM type 2, uncontrolled, with neuropathy Fibromyalgia Frequent falls GERD (gastroesophageal reflux disease) Hyperlipidemia Hypertension Insomnia Juvenile epilepsy Left knee pain Lumbar pain with radiation down leg Obesity, morbid, BMI 40.0-49.9 Primary osteoarthritis of right knee Recurrent biliary colic SVT (supraventricular tachycardia) Syncope Systolic heart failure Type 2 diabetes mellitus Vitamin D deficiency Surgical History History of colonoscopy Previous section S/P laparoscopic sleeve gastrectomy Family History Other CAD (coronary artery disease) Diabetes Social History Smoking and tobacco status: never smoked Second hand smoke exposure: No Smoking risk assessment/counseling performed?: No Alcohol intake: never Desire information about alcohol rehabilitation?: No Counseling given: No Desire information about substance/drug rehabilitation?: No Counseling given: No Adopted: No Caregiver/support person: No Lives independently: Yes Household members: spouse Housing: House Marital status: Number of children: 3 service: No Current occupational status: unemployed History of recent travel: No Current gender identity: Female Data Anesthesia Cardiac Studies: Echocardiogram Ultrasound 03/08/19 Holter Monitor 06/20/21
[2022-03-30] MEDS: ceFAZolin 3,000 MG in sodium chloride 0.9% (100 ml) 100 ML 100 MG IV (11:14)
[2022-03-30] MEDS: morphine 4 mg/mL SDV 1 mL XX ×2 (12:00)
--- NOTE | 2022-03-30 12:08 | P.OP_ITS ---
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 The medial meniscus was pristine. There is areas of carti peewee loss centrally over the weightbearing aspect the medial femoral condyle involving 50% of the thickness of cartilage over an area of approximate 2 x 2 centimeter square. There is generalized thinning of the cartilage beneath the patella and over the trochlea with fibrillated and frayed cartilage but no exposed bone Condition: stable Disposition: PACU Brief History: 56-year-old female with chronic left knee pain unresponsive to medications and injections. An MRI has revealed lateral meniscal tearingIn addition to mild medial compartmental chondromalacia. He is admitted for diagnostic arthroscopy and a possible lateral meniscectomy to improve pain and function Procedure: The patient was taken the operating room and given a general anesthesia. He was prepped and draped in the supine position with a tourniquet on the left leg. The knee was infiltrated with 30 cc of 0.5% Marcaine and 8 mg of morphine. A timeout was performed. The knee was entered through a standard inferior medial and inferior lateral portal. The diagnostic portion arthroscopy was performed the diagnostic portion arthroscopy was performed and the above findings noted. Initial attention was focused on the lateral meniscus. Utilizing a straight basket the central 50% of the lateral meniscus was resected. The rim was then cleaned up with the [employer] probe leaving approximately 50% of the meniscus behind. Areas over the medial femoral condyle were then addressed. Utilizing the [employer] probe unstable margins over the defect the medial femoral condyle were debrided back to a stable base and fibrillated cartilage at the base was debrided back to healthy margins. At no point was exposed subchondral bone identified. Attention was then focused on the patella and the trochlea. Initially unstable and fibrillated cartilage was debrided back with the [employer] probe over the medial and lateral facet. Attention was then focused on the patella with similar light debridement accomplished centrally in the most proximal trochlear groove. The knee was irrigated with saline. Portals with were closed with 3-0 Prolene. Sterile 4 x 4's, Kerlix, and a compressive
--- NOTE | 2022-03-30 14:22 | ANE.PACU2 ---
Inpatient post-anesthesia follow up: Airway intact: Yes Vital signs: Temperature 97 F Pulse Rate 73 Respiratory Rate 18 Blood Pressure 163/92 Pulse Oximetry 96 Oxygen Delivery Me thod Room Air Oxygen Flow Rate 2 Fraction of Inspir ed Oxygen Hydration adequate: Yes Nausea and vomiting: No Pain level: 1 Mental status: Baseline
== END 2022-03-30 14:57 | disposition home or self-care (01) ==
PROVIDERS: PCP Nurse Practitioner; Visit Provider Orthopaedic Surgery
PROC: (CPT 29870; principal; 2022-03-30 11:25)
DX: S83.282A Other tear of lateral meniscus, current injury, left knee, initial encounter (principal); X58.XXXA Exposure to other specified factors, initial encounter; M22.42 Chondromalacia patellae, left knee; J45.909 Unspecified asthma, uncomplicated; G47.30 Sleep apnea, unspecified; I11.0 Hypertensive heart disease with heart failure; I50.9 Heart failure, unspecified; I25.2 Old myocardial infarction; K21.9 Gastro-esophageal reflux disease without esophagitis; Z98.84 Bariatric surgery status; E66.01 Morbid (severe) obesity due to excess calories; Z68.41 Body mass index [BMI] 40.0-44.9, adult; M79.7 Fibromyalgia; I25.10 Atherosclerotic heart disease of native coronary artery without angina pectoris; E11.40 Type 2 diabetes mellitus with diabetic neuropathy, unspecified
CPT/HCPCS: 29880; J0690; J1100; J2270; J2405; J2704; J3010; J3490; J7030

== ENCOUNTER → 2022-06-02 09:30 | Outpatient (BNVA) | payer MEDICAID, SELFPAY | PROVIDERS: PCP Nurse Practitioner; Visit Provider Nurse Practitioner | DX: E11.40 Type 2 diabetes mellitus with diabetic neuropathy, unspecified (principal); E11.65 Type 2 diabetes mellitus with hyperglycemia; J45.909 Unspecified asthma, uncomplicated; E55.9 Vitamin D deficiency, unspecified; M79.7 Fibromyalgia; I47.1 Supraventricular tachycardia; I10 Essential (primary) hypertension; K21.9 Gastro-esophageal reflux disease without esophagitis; R45.4 Irritability and anger; E78.2 Mixed hyperlipidemia; F41.1 Generalized anxiety disorder; F51.01 Primary insomnia; B37.9 Candidiasis, unspecified; E78.5 Hyperlipidemia, unspecified; Z79.4 Long term (current) use of insulin | CPT/HCPCS: 80053; 80061; 83036 ==

== ENCOUNTER → 2022-08-07 10:53 | Outpatient (BNVA) | payer MEDICAID, SELFPAY | PROVIDERS: PCP Nurse Practitioner; Visit Provider Nurse Practitioner | DX: E11.40 Type 2 diabetes mellitus with diabetic neuropathy, unspecified (principal); E11.65 Type 2 diabetes mellitus with hyperglycemia | CPT/HCPCS: 81000; 82043 ==

== ENCOUNTER → 2022-08-25 10:32 | Outpatient (BNVA) | payer MEDICAID, SELFPAY | PROVIDERS: PCP Nurse Practitioner; Visit Provider Nurse Practitioner | DX: E11.65 Type 2 diabetes mellitus with hyperglycemia (principal); Z79.4 Long term (current) use of insulin; E55.9 Vitamin D deficiency, unspecified | CPT/HCPCS: 80053; 80061; 82306; 82607; 83036 ==

== ENCOUNTER → 2022-08-29 11:42 | Outpatient (BNVA) | payer MEDICAID, SELFPAY | PROVIDERS: PCP Nurse Practitioner; Visit Provider Nurse Practitioner | DX: E11.65 Type 2 diabetes mellitus with hyperglycemia (principal); Z79.4 Long term (current) use of insulin | CPT/HCPCS: 81003 ==

== ENCOUNTER → 2022-10-12 16:30 | Outpatient (BNVA) | payer MEDICAID, SELFPAY | PROVIDERS: PCP Nurse Practitioner; Visit Provider Nurse Practitioner | DX: E11.65 Type 2 diabetes mellitus with hyperglycemia (principal); E55.9 Vitamin D deficiency, unspecified | CPT/HCPCS: 80053; 82306; 82607; 83036; 84443 ==

== ENCOUNTER → 2022-12-07 14:14 | Outpatient (BNVA) | payer MEDICAID, SELFPAY | PROVIDERS: PCP Nurse Practitioner; Visit Provider Nurse Practitioner | DX: R19.7 Diarrhea, unspecified (principal); R19.5 Other fecal abnormalities | CPT/HCPCS: 87045; 87177; 87209; 87324; 87427; 87449 ==

== ENCOUNTER → 2023-01-04 14:37 | Outpatient (BNVA) | payer MEDICAID, SELFPAY | PROVIDERS: PCP Nurse Practitioner; Visit Provider Nurse Practitioner | DX: J45.909 Unspecified asthma, uncomplicated (principal); M79.7 Fibromyalgia; E11.40 Type 2 diabetes mellitus with diabetic neuropathy, unspecified; E11.65 Type 2 diabetes mellitus with hyperglycemia; F51.01 Primary insomnia; E55.9 Vitamin D deficiency, unspecified; E78.2 Mixed hyperlipidemia; R60.9 Edema, unspecified; I10 Essential (primary) hypertension; B37.9 Candidiasis, unspecified; Z79.4 Long term (current) use of insulin; R32 Unspecified urinary incontinence; R15.9 Full incontinence of feces; K21.9 Gastro-esophageal reflux disease without esophagitis; F41.1 Generalized anxiety disorder; K58.9 Irritable bowel syndrome, unspecified; K58.0 Irritable bowel syndrome with diarrhea | CPT/HCPCS: 80053; 83036 ==

== ENCOUNTER → 2023-02-06 10:09 | Outpatient (BNVA) | payer MEDICAID, SELFPAY | PROVIDERS: PCP Nurse Practitioner; Visit Provider Nurse Practitioner Family | DX: R50.9 Fever, unspecified (principal) | CPT/HCPCS: 87400; 87426 ==

== ENCOUNTER → 2023-03-29 14:54 | Outpatient (BNVA) | payer MEDICAID, SELFPAY | PROVIDERS: PCP Nurse Practitioner; Visit Provider Nurse Practitioner | DX: E11.9 Type 2 diabetes mellitus without complications (principal) | CPT/HCPCS: 80053; 80061; 81000; 83036 ==

== ENCOUNTER → 2023-05-31 10:11 | Outpatient (BNVA) | payer MEDICAID, SELFPAY | PROVIDERS: PCP Nurse Practitioner; Visit Provider Nurse Practitioner Family | DX: J02.9 Acute pharyngitis, unspecified (principal) | CPT/HCPCS: 87071; 87880 ==

== ENCOUNTER → 2023-06-28 10:15 | Outpatient (BNVA) | payer MEDICAID, SELFPAY | PROVIDERS: PCP Nurse Practitioner; Visit Provider Nurse Practitioner | DX: E11.65 Type 2 diabetes mellitus with hyperglycemia (principal); Z79.4 Long term (current) use of insulin; I10 Essential (primary) hypertension | CPT/HCPCS: 80053; 80061; 82607; 83036 ==

== ENCOUNTER → 2023-07-12 15:19 | Outpatient (BNVA) | payer MEDICAID, SELFPAY | PROVIDERS: PCP Nurse Practitioner; Visit Provider Nurse Practitioner | DX: M79.645 Pain in left finger(s) (principal) | CPT/HCPCS: 73130 ==

== ENCOUNTER → 2023-09-07 11:06 | Outpatient (BNVA) | payer MEDICAID, SELFPAY | PROVIDERS: PCP Nurse Practitioner; Visit Provider Student in an Organized Health Care Education/Training Program | DX: M25.561 Pain in right knee; M25.562 Pain in left knee; M17.0 Bilateral primary osteoarthritis of knee | CPT/HCPCS: 73560; 73565 ==

== ENCOUNTER 2023-09-07 12:16 | Outpatient (CLI) | payer MEDICAID, SELFPAY | END 2023-09-07 12:17 | disposition home or self-care (01) | LOC: SPT 12:17 | PROVIDERS: PCP Nurse Practitioner; Visit Provider Student in an Organized Health Care Education/Training Program | DX: Z46.89 Encounter for fitting and adjustment of other specified devices (principal); M25.562 Pain in left knee; M25.561 Pain in right knee; M22.42 Chondromalacia patellae, left knee | CPT/HCPCS: L1852 ==

== ENCOUNTER → 2023-10-01 16:39 | Outpatient (BNVA) | payer MEDICAID, SELFPAY | PROVIDERS: PCP Nurse Practitioner; Visit Provider Nurse Practitioner | DX: E11.9 Type 2 diabetes mellitus without complications (principal) | CPT/HCPCS: 80053; 83036 ==

== ENCOUNTER → 2023-12-18 11:29 | Outpatient (BNVA) | payer MEDICAID, SELFPAY | PROVIDERS: PCP Nurse Practitioner; Visit Provider Nurse Practitioner | DX: E11.9 Type 2 diabetes mellitus without complications (principal); E11.65 Type 2 diabetes mellitus with hyperglycemia; Z79.4 Long term (current) use of insulin | CPT/HCPCS: 80053; 80061; 83036 ==

== ENCOUNTER → 2024-04-09 15:38 | Outpatient (BNVA) | payer MEDICAID, SELFPAY | PROVIDERS: PCP Nurse Practitioner; Visit Provider Nurse Practitioner | DX: E11.9 Type 2 diabetes mellitus without complications (principal); Z79.4 Long term (current) use of insulin; E11.65 Type 2 diabetes mellitus with hyperglycemia | CPT/HCPCS: 80053; 80061; 82607; 83036; 85025 ==

== ENCOUNTER → 2024-05-06 11:25 | Outpatient (BNVA) | payer MEDICAID, SELFPAY | PROVIDERS: PCP Nurse Practitioner; Visit Provider Nurse Practitioner | DX: E55.9 Vitamin D deficiency, unspecified (principal) | CPT/HCPCS: 82306; 83735 ==

== ENCOUNTER 2024-06-04 07:25 | Outpatient (CLI) | payer MEDICAID, SELFPAY ==
--- NOTE | 2024-06-04 07:30 | USCV_ITS ---
Felisa Medina Age: 58 Gender: F : 1965 Exam Date: 06/04/2024 07:33 Ordering Phys: Lonny Mendoza Technologist: Exam Location: [facility] [place] Indication: tia dizzy Risk Factors: Previous Vascular Surgery: Right Brachial BP: / Left Brachial BP: / Right Left Velocity (cm/s) Spectral Plaque Velocity (cm/s) Spectral Plaque Syst/Diast Broadening Syst/Diast Broadening 42.30/ 12.70 Prox CCA 36.50 / 8.10 47.50/ 14.00 Mid CCA 36.10 / 9.00 47.50/ 14.00 Hetro Distal CCA 33.20 / 9.80 Hetro 66.20/ 25.90 Prox ICA 34.90 / 16.00 66.20/ 23.20 Mid ICA 44.70 / 20.50 70.40/ 25.60 Distal ICA 51.00 / 19.60 70.00 ECA 60.80 1.50 ICA/CCA 1.50 Antegrade Vertebral Antegrade 29.70/ 12.10 cm/s 34.90/ 9.80 cm/s Tri Subclavian Tri 43.20 51.00 FINDINGS Comparison: none available. No significant elevation of systolic or diastolic velocities. Waveforms are normal. Mild carotid atherosclerosis. CONCLUSIONS Bilateral ICA stenosis less than 50%. Mild carotid atherosclerosis. Dr. Kellie Espinoza DO (Electronically Signed) Final Date: 04 June 2024 15:52 S
== END 2024-06-04 07:26 | disposition home or self-care (01) ==
LOC: RAD 07:26
PROVIDERS: PCP Nurse Practitioner; Visit Provider Nurse Practitioner
DX: I65.23 Occlusion and stenosis of bilateral carotid arteries (principal)
CPT/HCPCS: 93880

== ENCOUNTER → 2024-07-09 14:46 | Outpatient (BNVA) | payer MEDICAID, SELFPAY | PROVIDERS: PCP Nurse Practitioner; Visit Provider Nurse Practitioner | DX: E11.65 Type 2 diabetes mellitus with hyperglycemia (principal); Z79.4 Long term (current) use of insulin | CPT/HCPCS: 80053; 83036 ==

== ENCOUNTER 2024-07-18 09:42 | Emergency (ER) | payer MEDICAID, SELFPAY ==
[2024-07-18 09:54] VITALS: BP 210/115; PULSE 79; RESP 16; TEMP 36.9; O2SAT 92; BMI 54.8
[2024-07-18 10:00] VITALS: PULSE 82; RESP 18; O2SAT 91
--- NOTE | 2024-07-18 10:01 | CT_ITS ---
WS: [id number] CT ABDOMEN AND PELVIS NONCONTRAST HISTORY: R flank/abdominal pain TECHNIQUE: Imaging performed through the abdomen and pelvis. Coronal and sagittal reformats are submitted. All CT scans at [facility] use at least one of these dose optimization techniques: automated exposure control; mA and/or kV adjustment per patient size (includes targeted exams where dose is matched to clinical indication); or iterative reconstruction. DLP: 1278.83 mGy.cm COMPARISON: 05/17/2016, 11/29/2016 Lower thorax: Mild dependent changes at the lung bases. No effusions. Mild cardiomegaly. Small hiatal hernia. Liver: Moderate hepatomegaly with hepatic steatosis. Gallbladder: Prior cholecystectomy. Normal common bile duct. Pancreas: Normal size and attenuation. Normal pancreatic duct. No pancreatitis or mass. Spleen: Normal. Adrenal glands: RIGHT adrenal adenoma 1.5 cm. Negative LEFT adrenal gland. Right kidney: Mild perinephric stranding. No renal obstruction. Nonobstructing calcification measures 3 mm the ureter is not dilated. Left kidney: Perinephric stranding. Enlarging LEFT renal cystic appearing mass measures 4.6 x 7.2 cm. No renal obstruction. Aorta: Moderate to severe atherosclerosis abdominal aorta. No aneurysm. Atherosclerosis continues into the common iliac arteries. No free fluid, intraperitoneal air or significant lymphadenopathy. GI tract: Prior gastric bypass surgery. No obstruction. No colitis. Normal appendix. Abdominal wall: Ventral abdominal wall hernia contains fat only. Very small caliber orifice of 7 mm. Pelvis: Uterus is normally positioned and anteverted. LEFT ovary is enlarged and contains calcifications. The calcifications are new since the prior study from 2017. For post menopausal female this ovaries. Slightly enlarged. The ovary measures 4.2 x 3.0 x 4.3 cm. The RIGHT ovary is normal size. Osseous structures: Mild degenerative curvature. Diffuse spondylitic changes in the visualized spine. CT/CT kidney stone [id number] IMPRESSION: 1. Moderate hepatomegaly with hepatic steatosis. 2. Prior cholecystectomy. 3. RIGHT adrenal adenoma 1.5 cm. 4. Mild bilateral perinephric stranding. There is no renal obstruction. No ure teral obstruction. Perinephric stranding was also present in 2017. 5. LEFT ovarian enlargement with development of calcifications. LEFT ovary ronaldo sures 4.2 x 3.0 x 4.3 cm. Recommend transvaginal pelvic ultrasound imaging whic h can be performed on a nonurgent basis. Transvaginal imaging may be limited by body habitus. If transvaginal imaging is nondiagnostic MR pelvis with attentio n to the ovaries may be necessary with and without contrast. 6. Enlarging LEFT renal low-attenuation mass now measuring 4.6 x 7.2 cm. This is probably a cyst. Consider follow-up ultrasound evaluation to confirm benign cyst.
--- NOTE | 2024-07-18 10:01 | ED_ITS ---
HPI - Back Pain/Injury 2 General: Chief Complaint: Urogenital-Female Stated Complaint: kidney pain right side Time Seen by Provider: 07/18/24 09:47 Source: patient Mode of arrival: ambulatory Limitations: no limitations History of Present Illness: Patient is a 58-year-old female presents to ED today with complaint of right sided back pain radiating around into her abdomen. She states she first noticed symptoms approximately 4 days ago and states they were intermittent at that time lasting approximately 10 to 15 minutes with multiple episodes a day. She feels like over the past 48 hours pain has became constant and more severe. She states it feels like a kidney/ureter stone as she has had 1 of these previously. She is not complaining of dysuria, frequency, urgency, hematuria. No fevers. No nausea or vomiting. She is status post cholecystectomy. She has not noted any changes to her bowel movements. She has not noted a rash. MD elicited complaint: back pain Onset (ago): day(s) Timing: constant Severity: moderate Pain scale (0-10): 7 Location: right lower back Radiation: abdomen Exacerbating factors: none Relieving factors: none Associated symptoms: Reports abdominal pain; Deny chills, change in bowel habits, dysuria, fatigue, fever(s), hematuria, nausea, urinary urgency or vomiting Work related injury: No Related Data Home Medications ?Medication ?Instructions ?Recorded ?Confirmed fluticasone propionate 50 2 spray intranasal DAILY PRN 04/09/24 07/18/24 mcg/actuation nasal allergies spray,suspension (Flonase Allergy Relief) diclofenac sodium 1 % topical gel 2 g topical QID PRN Pain 07/18/24 07/18/24 (Voltaren Arthritis Pain) lidocaine 5 % topical patch 1 patch topical DAILY PRN Pain 07/18/24 07/18/24 methocarbamol 750 mg tablet 750 mg PO Q8H PRN Muscle S pasm 07/18/24 07/18/24 nystatin 100,000 unit/gram topical 1 applic topical BI D PRN Skin 07/18/24 07/18/24 cream Irritation Previous Rx's ?Medication ?Instructions ?Recorded blood sugar diagnostic #120 ea 04/09/24 Oxygen 2 L #1 ea 05/27/24 doxepin 50 mg capsule 50 mg PO BID #60 caps syringe with needle, safety 3 mL #1 ea 05/27/24 25 gauge x 1 (Easy Touch SheathLock Syringe with Needle) blood sugar diagnostic (True #100 ea 06/04/24 Metrix Glucose Test Strip) blood-glucose meter (True Metrix #1 ea 06/04/24 Glucose Meter) pen needle, diabetic, safety 30 #100 ea 06/07/24 gauge x 5/16 (Assure ID Pen Needle) ergocalciferol (vitamin D2) 1,250 50,000 unit PO .week ly #4 caps 07/09/24 mcg (50,000 unit) capsule (Vitamin D2) albuterol sulfate 90 mcg/actuation 2 puff inhalation Q 6H PRN 07/12/24 aerosol inhaler (Ventolin HFA) shortness of breath or wheezing #6.7 grams evolocumab 140 mg/mL subcutaneous 140 mg SUBCUT .every 14 days #1 mL 07/12/24 pen injector (Repatha SureClick) fenofibrate nanocrystallized 145 145 mg PO DAILY #30 t abs 07/12/24 mg tablet (Tricor) furosemide 20 mg tablet (Lasix) 20 mg PO DAILY PRN adia ma #30 tabs 07/12/24 hydralazine 50 mg tablet 50 mg PO BID #60 tabs insulin glargine 100 unit/mL (3 45 unit (0.45 mL) SUBC UT QAM #15 mL 07/12/24 mL) subcutaneous pen (Lantus Solostar U-100 Insulin) isosorbide mononitrate 30 mg 30 mg PO DAILY #30 tabs 0 07/12/24 tablet,extended release 24 hr meloxicam 15 mg tablet 15 mg PO DAILY #30 tabs 05/1 025 metoprolol tartrate 100 mg tablet 100 mg PO BID #60 ta bs 07/12/24 oxybutynin chloride 5 mg 5 mg PO DAILY #30 tabs 07/12 tablet,extended release 24 hr pantoprazole 40 mg tablet,delayed 40 mg PO DAILY #30 t abs 07/12/24 release (Protonix) pregabalin 300 mg capsule (Lyrica) 300 mg PO BID 30 da ys #60 caps 07/12/24 semaglutide 2 mg/dose (8 mg/3 mL) 2 mg (0.75 mL) SUBCU T .weekly #3 mL 07/12/24 subcutaneous pen injector (Ancanco) trazodone 100 mg tablet 100 mg PO .at bedtime #30 ta bs 07/12/24 valsartan 320 mg tablet (Diovan) 320 mg PO DAILY #30 t abs 07/12/24 venlafaxine 150 mg 150 mg PO QAM #30 caps 07/12 capsule,extended release 24 hr (Effexor XR) Allergies Allergy/AdvReac Type Severity Reaction Status Date / Time latex Allergy Intermediate hives Verified 07/09/24 13:56 simvastatin Allergy Unknown Unknown Verified 07/09/24 13:56 adhesive tape Allergy ALGY-Rash Verified 07/09/24 13:56 aspirin Allergy ALGY-Hives Verified 07/09/24 13:56 calcium carbonate (From Allergy rash Verified 07/09/24 13:56 Salagen (aspirin)) magnesium (From Salagen Allergy rash Verified 07/09/24 13:56 (aspirin)) eszopiclone (From Lunesta) AdvReac Severe ADR-Confusi Verified 07/09/24 13:56 on Review of Systems 2 Const: Denies: fever(s), chills, body aches, fatigue or malaise Card: Denies: chest pain Resp: Denies: dyspnea GI: Reports: abdominal pain; Denies: nausea, vomiting, diarrhea or change in bowel habits : Reports: flank pain; Denies: difficulty voiding, dysuria, urinary frequency, urinary urgency, urinary hesitancy or hematuria Musc: Reports: back pain; Denies: neck pain, extremity pain, extremity swelling, joint pain, joint swelling or joint redness Skin/Breast: Denies: rash Neuro: Denies: headache(s), numbness in extremities, weakness in extremities, sensory changes or dizziness PFSH ED 2 PFSH: Medical History Irritable bowel syndrome with diarrhea Breast screening declined Anxiety, generalized Recurrent biliary colic SVT (supraventricular tachycardia) Allergy-induced asthma Diabetes mellitus with hyperglycemia Obesity, morbid, BMI 40.0-49.9 DM type 2, uncontrolled, with neuropathy Vitamin D deficiency Primary osteoarthritis of right knee Fibromyalgia Chronic arthritis Lumbar pain with radiation down leg Left knee pain Insomnia Juvenile epilepsy Frequent falls GERD (gastroesophageal reflux disease) Hyperlipidemia Hypertension Chronic back pain Syncope Type 2 diabetes mellitus CAD (coronary artery disease) Systolic heart failure Diabetes Surgical History History of colonoscopy S/P laparoscopic sleeve gastrectomy Previous section Family History Other CAD (coronary artery disease) Diabetes Social History Smoking and tobacco/nicotine status: never used tobacco/nicotine Second hand smoke exposure: No Alcohol intake: never Substance/Drug Use: never Adopted: No Caregiver/support person: No Lives independently: Yes Household members: spouse Housing: House Marital status: Number of children: 3 service: No Current occupational status: unemployed Do you think of yourself as: Straight/Heterosexual Current gender identity: Female Physical Exam 2 Const: COMMON NORMALS: no acute distress, patient oriented x3, no limitations and alert GENERAL APPEARANCE: cooperative NUTRITIONAL APPEARANCE: obese morbidly obese (BMI 54.8) ORIENTATION/CONSCIOUSNESS: Yes awake, Yes oriented to person, Yes oriented to place and Yes oriented to time OTHER: hypertensive-states she took all of her bp meds this morning Eye: COMMON NORMALS: no scleral icterus Neck/C-Spine: COMMON NORMALS: full ROM, no lymphadenopathy and no meningeal signs Resp: COMMON NORMALS: normal respiratory effort and clear to auscultation bilaterally AUSCULTATION: clear to auscultation bilaterally Cardio: COMMON NORMALS: regular rate and regular rhythm RATE: regular rate RHYTHM: regular rhythm GI: COMMON NORMALS: Normal to inspection, nondistended, normoactive bowel sounds present, Soft to palpation and no masses INSPECTION: Yes normal to inspection AUSCULTATION: Yes normoactive bowel sounds PALPATION: Yes Soft to palpation, Yes Tenderness to palpation present (GI) (throughout R side), No Guarding due to palpation present (GI) and No Rigid due to palpation OTHER: exam somewhat hindered due to body habitus : BLADDER/KIDNEY EXAM: Yes CVA tenderness on the right (tenderness below R CVA) Back/Pelvis: COMMON NORMALS: thoracic and lumbar spine normal to inspection, no thoracic nor lumbar tenderness, thoraco-lumbar ROM normal and straight leg raise negative bilaterally GENERAL BACK: Yes CVA tenderness PELVIS: Yes buttocks normal and No sciatic notch tenderness SACRUM: no tenderness C OCCYX: no tenderness BACK IMAGE (FEMALE): 1. TTP; no rash Extremity: COMMON NORMALS: normal to inspection GENERAL: Yes normal exam except as noted Neuro: COMMON NORMALS: patient oriented x3, moves all extremities, no focal motor deficits, no sensory deficits noted and gait normal S ENSORIUM/ORIENTATION: Yes alert, Yes oriented to person, Yes oriented to place and Yes oriented to time MENINGEAL SIGNS: Yes no meningeal signs Skin: COMMON NORMALS: no rashes or lesions noted GENERAL SKIN EXAM: no rashes or lesions noted Course 2 Vital Signs: Vital signs: Vital Signs Temperature 98.5 F 07/18/24 09:54 Pulse Rate 78 07/18/24 12:00 Respiratory Rate 16 07/18/24 11:30 Blood Pressure 122/57 07/18/24 12:00 Pulse Oximetry 94 07/18/24 12:00 Oxygen Delivery Me thod Nasal Cannula 07/18/24 11:30 Oxygen Flow Rate 2 07/18/24 11:30 MDM - Back Pain/Injury Medical Decision Making Patient here for right sided lower back pain radiating around into her abdomen. She clinically appears in no acute distress. Arrives very hypertensive but vitals otherwise stable. Blood work here is unremarkable. Her UA is completely clear. CT scan showing lots of incidental findings including hepatomegaly with hepatic steatosis, right adrenal adenoma, left renal cyst, enlarged left ovary with mass. No obvious etiology for her right sided discomfort. She was made aware of incidental findings with recommendations to follow-up with her primary care provider. These were also included in her discharge paperwork. Discussed conservative therapies including ice, heat, anti-inflammatories. She does not want steroids. She already takes a muscle relaxer. Recommend follow-up with primary care. Return ED precautions discussed. Medical Records I reviewed the patient's medical records. Labs I reviewed the patient's lab results. 07/18/24 10:51 07/18/24 10:51 Radiology Impressions Abdomen/Pelvis CT 07/18/24 10:01 IMPRESSION: 1. Moderate hepatomegaly with hepatic steatosis. 2. Prior cholecystectomy. 3. RIGHT adrenal adenoma 1.5 cm. 4. Mild bilateral perinephric stranding. There is no renal obstruction. No ureteral obstruction. Perinephric stranding was also present in 2017. 5. LEFT ovarian enlargement with development of calcifications. LEFT ovary measures 4.2 x 3.0 x 4.3 cm. Recommend transvaginal pelvic ultrasound imaging which can be performed on a nonurgent basis. Transvaginal imaging may be limited by body habitus. If transvaginal imaging is nondiagnostic MR pelvis with attention to the ovaries may be necessary with and without contrast. 6. Enlarging LEFT renal low-attenuation mass now measuring 4.6 x 7.2 cm. This is probably a cyst. Consider follow-up ultrasound evaluation to confirm benign cyst. Laboratory Results WBC 6.95 10^3/uL (3.29-11.43) 07/18/24 10:51 RBC 5.10 10^6/uL (3.85-5.65) 07/18/24 10:51 Hgb 14.40 g/dL (11.27-16.99) 07/18/24 10:51 Hct 44.8 % (36-47) 07/18/24 10:51 MCV 87.8 fl (85-98) 07/18/24 10:51 MCH 28.2 pg (27-33) 07/18/24 10:51 MCHC 32.1 g/dL (30-55) 07/18/24 10:51 RDW 13.3 % (12.1-15.1) 07/18/24 10:51 Plt Count 230 10^3/cmm (157-399) 07/18/24 10:51 MPV 10.8 fL (7.4-10.4) H 07/18/24 10:51 Neut % (Auto) 70.9 % 07/18/24 10:51 Lymph % (Auto) 20.6 % 07/18/24 10:51 [place] % (Auto) 5.5 % 07/18/24 10:51 Eos % (Auto) 2.3 % 07/18/24 10:51 Baso % (Auto) 0.4 % 07/18/24 10:51 Neut # (Auto) 4.93 10^3/uL (1.8-7.7) 07/18/24 10:51 Lymph # (Auto) 1.4 10^3/uL (0.8-4.8) 07/18/24 10:51 [place] # (Auto) 0.4 10^3/uL (0.2-0.9) 07/18/24 10:51 Eos # (Auto) 0.2 10^3/uL (0.0-0.8) 07/18/24 10:51 Baso # (Auto) 0.0 10^3/uL (0.0-0.1) 07/18/24 10:51 Nucleated RBC % (auto) 0 % 07/18/24 10:51 Nucleated RBCs # 0.0 /100WBC 07/18/24 10:51 Sodium 140 mmol/L (136-145) 07/18/24 10:51 Potassium 4.4 mmol/L (3.5-5.1) 07/18/24 10:51 Chloride 102 mmol/L (98-107) 07/18/24 10:51 Carbon Dioxide 27 mmol/L (22-29) 07/18/24 10:51 Anion Gap 15.4 (5-19) 07/18/24 10:51 BUN 9 mg/dL (6-20) 07/18/24 10:51 Creatinine 0.5 mg/dL (0.5-0.9) 07/18/24 10:51 GFR Calculation 126.3 mL/min (90-130) 07/18/24 10:51 Glucose 146 mg/dL (65-115) H 07/18/24 10:51 Calculated Osmolality 291 mOsm/kg (285-295) 07/18/24 10:51 Calcium 9.3 mg/dL (8.5-10.5) 07/18/24 10:51 Total Bilirubin 0.4 mg/dL (0.15-1.2) 07/18/24 10:51 AST 18 U/L (0-32) 07/18/24 10:51 ALT 15 U/L (0-33) 07/18/24 10:51 Alkaline Phosphatase 57 U/L (35-105) 07/18/24 10:51 Total Protein 6.6 g/dL (6.6-8.7) 07/18/24 10:51 Albumin 3.8 g/dL (3.5-5.2) 07/18/24 10:51 Globulin 2.8 g/dL (1.3-4.6) 07/18/24 10:51 Urine Color Yellow (Yellow) 07/18/24 09:59 Urine Appearance Clear (CLEAR) 07/18/24 09:59 Urine pH 8.5 (5-7) A 07/18/24 09:59 Ur Specific [place] 1.012 (1.005-1.030) 07/18/24 09:59 Urine Protein Negative (Negative) 07/18/24 09:59 Urine Glucose (UA) Negative (Normal) 07/18/24 09:59 Urine Ketones Negative (Negative) 07/18/24 09:59 Urine Blood Negative (Negative) 07/18/24 09:59 Urine Nitrate Negative (Negative) 07/18/24 09:59 Urine Bilirubin Negative (Negative) 07/18/24 09:59 Urine Urobilinogen 0.2 mg/dL (Negative) 07/18/24 09:59 Ur Leukocyte Esterase Negative (Negative) 07/18/24 09:59 Urine RBC 0-2 /hpf (0-2) 07/18/24 09:59 Urine WBC 0-5 /hpf (0-5) 07/18/24 09:59 Ur Squamous Epith Cells 0-5 /hpf (0-5) 07/18/24 09:59 Amorphous Sediment Not Reportable 07/18/24 09:59 Urine Bacteria None seen /hpf (NONE) 07/18/24 09:59 Hyaline Casts 0-4 /lpf H 07/18/24 09:59 All radiology interpretation(s) finalized by discharge Discharge Plan Discharge Patient Disposition: Home Clinical Impression: Acute right-sided back pain Qualifiers: Back pain location: low back pain Sciatica presence: without sciatica Qualified Code(s): M54.50 - Low back pain, unspecified Condition: Stable Prescriptions: No Action fluticasone propionate [Flonase Allergy Relief] 50 mcg/actuation spray,suspension 2 spray intranasal DAILY PRN (Reason: allergies) Rx Instructions: administer into each nostril (DME) blood sugar diagnostic Strip See Rx Instructions .ROUTE .MEDSUPPLY Qty: 120 5RF Rx Instructions: use 4 times day ergocalciferol (vitamin D2) [Vitamin D2] 1,250 mcg (50,000 unit) capsule 50,000 unit PO .weekly Qty: 4 2RF Rx Instructions: Sunday albuterol sulfate [Ventolin HFA] 90 mcg/actuation HFA aerosol inhaler 2 puff inhalation Q6H PRN (Reason: shortness of breath or wheezing) Qty: 6.7 2RF Repatha SureClick 140 mg/mL pen injector 140 mg SUBCUT .every 14 days Qty: 1 2RF fenofibrate nanocrystallized [Tricor] 145 mg tablet 145 mg PO DAILY Qty: 30 2RF furosemide [Lasix] 20 mg tablet 20 mg PO DAILY PRN (Reason: edema) Qty: 30 2RF hydralazine 50 mg tablet 50 mg PO BID Qty: 60 2RF insulin glargine [Lantus Solostar U-100 Insulin] 100 unit/mL (3 mL) insulin pen 45 unit SUBCUT QAM Qty: 15 2RF isosorbide mononitrate 30 mg tablet extended release 24 hr 30 mg PO DAILY Qty: 30 2RF meloxicam 15 mg tablet 15 mg PO DAILY Qty: 30 2RF metoprolol tartrate 100 mg tablet 100 mg PO BID Qty: 60 2RF oxybutynin chloride 5 mg tablet extended release 24hr 5 mg PO DAILY Qty: 30 2RF pantoprazole [Protonix] 40 mg tablet,delayed release (DR/EC) 40 mg PO DAILY Qty: 30 2RF pregabalin [Lyrica] 300 mg capsule 300 mg PO BID 30 Days Qty: 60 2RF Ozempic 2 mg/dose (8 mg/3 mL) pen injector 2 mg SUBCUT .weekly Qty: 3 2RF Rx Instructions: Sunday trazodone 100 mg tablet 100 mg PO .at bedtime Qty: 30 2RF valsartan [Diovan] 320 mg tablet 320 mg PO DAILY Qty: 30 2RF venlafaxine [Effexor XR] 150 mg capsule,extended release 24hr 150 mg PO QAM Qty: 30 2RF doxepin 50 mg capsule 50 mg PO BID Qty: 60 2RF (DME) Oxygen 2 L See Rx Instructions .Route .MEDSUPPLY Qty: 1 0RF Rx Instructions: Use 2L NC at night for 99 months (DME) Easy Touch SheathLock Syrg-Ndl 3 mL 25 gauge x 1 syringe See Rx Instructions .ROUTE .MEDSUPPLY Qty: 1 2RF Rx Instructions: use monthly with Vitamin B12 (DME) blood-glucose meter [True Metrix Glucose Meter] [facility] See Rx Instructions .Route Qty: 1 0RF Rx Instructions: As directed (DME) True Metrix Glucose Test Strip Strip See Rx Instructions .Route Qty: 100 5RF Rx Instructions: use one day (DME) Assure ID Pen Needle 30 gauge x 5/16 needle See Rx Instructions .Route Qty: 100 2RF Rx Instructions: one day methocarbamol 750 mg tablet 750 mg PO Q8H PRN (Reason: Muscle Spasm) nystatin 100,000 unit/gram cream 1 applic topical BID PRN (Reason: Skin Irritation) lidocaine 5 % adhesive patch,medicated 1 patch topical DAILY PRN (Reason: Pain) Rx Instructions: leave on most painful area for up to 12 hrs diclofenac sodium [Voltaren Arthritis Pain] 1 % gel 2 g topical QID PRN (Reason: Pain) Rx Instructions: apply to single elbow, wrist or hand; for hand includes palm/fingers/back of hand Discharge Orders: Discharge ED (Routine); Ordered 07/18/24 Ordered By: Meghan Oliveira Referrals: Lonny Mendoza FNP-C [Primary Care Provider, Family Practice] Activity Restrictions/Additional Instructions: As we discussed, your blood work and urine today were unremarkable. CT scan showing lots of incidental findings including a right adrenal adenoma, a left renal cyst as well as an enlarged left ovary with an enlarging mass that is probably a cyst but needs follow-up evaluation for confirmation. These can be done outpatient through your primary care provider. You need to keep a blood pressure log at home and discuss with primary care if it is continually elevated so they can adjust blood pressure medication. Your blood pressure was elevated throughout your ED stay today. Print Language: [place] Coding Level of Care Code ED Billet Header for Warren Rosado
[2024-07-18 10:16] LABS: Bilirubin Urine Negative (Negative); Blood Urine Negative (Negative); Glucose Urine UA Negative (Normal); Ketones Urine Negative (Negative); Leukocyte Esterase Urine Negative (Negative); Nitrate Urine Negative (Negative); Protein Urine Negative (Negative); Specific Gravity, Urine 1.012 (1.005-1.030); Urine Appearance Clear (CLEAR); Urine Color Yellow (Yellow); Urobilinogen Urine 0.2 mg/dL (Negative); pH Urine 8.5 (5-7)
[2024-07-18 10:21] LABS: Add Urine Microscopic? YES; Bacteria Urine None Seen /hpf; Hyaline Casts Urine 0-4 /lpf; RBC Urine 0-2 /hpf (0-2); Squamous Epithelial Cell Urine 0-5 /hpf (0-5); WBC Urine 0-5 /hpf (0-5)
[2024-07-18 10:57] LABS: Basophils % 0.4 %; Eosinophils # 0.2 10^3/uL (0.0-0.8); Eosinophils % 2.3 %; Hematocrit 44.8 % (36-47); Lymphocytes # 1.4 10^3/uL (0.8-4.8); Lymphocytes % 20.6 %; Mean Corpuscular HGB Conc 32.1 g/dL (30-55); Mean Corpuscular Hemoglobin 28.2 pg (27-33); Mean Corpuscular Volume 87.8 fl (85-98); Mean Platelet Volume 10.8 fL (7.4-10.4); Monocytes # 0.4 10^3/uL (0.2-0.9); Monocytes % 5.5 %; Neutrophils # 4.93 10^3/uL (1.8-7.7); Neutrophils % 70.9 %; Nucleated Red Blood Cells % 0 %; Platelet Count 230 10^3/cmm (157-399); Red Cell Distribution Width 13.3 % (12.1-15.1); White Blood Count 6.95 10^3/uL (3.29-11.43)
[2024-07-18 11:13] LABS: Alanine Aminotransferase 15 U/L (0-33); Albumin Level 3.8 g/dL (3.5-5.2); Alkaline Phosphatase 57 U/L (35-105); Anion Gap 15.4 (5-19); Aspartate Amino Transferase 18 U/L (0-32); Blood Urea Nitrogen 9 mg/dL (6-20); Calcium 9.3 mg/dL (8.5-10.5); Carbon Dioxide 27 mmol/L (22-29); Chloride 102 mmol/L (98-107); Creatinine Clr Calc Pharmacy 192.1351; Globulin 2.8 g/dL (1.3-4.6); Glomerular Filtration Rate 126.3 mL/min (90-130); Glucose 146 mg/dL (65-115); Osmolality Calculated 291 mOsm/kg (285-295); Potassium 4.4 mmol/L (3.5-5.1); Sodium 140 mmol/L (136-145); Total Bilirubin 0.4 mg/dL (0.15-1.2); Total Protein 6.6 g/dL (6.6-8.7)
[2024-07-18 11:30] VITALS: BP 164/96; PULSE 79; RESP 16; O2SAT 91
[2024-07-18] MEDS: morphine 4 mg/mL SDV 1 mL IVP (11:32)
[2024-07-18] MEDS: ondansetron 2 mg/ML SDV 2 mL 4 MG IVP (11:32)
[2024-07-18] MEDS: hyDRALAzine 20 mg/mL INJ 1 mL 10 MG IVP (11:33)
[2024-07-18 12:00] VITALS: BP 122/57; PULSE 78; O2SAT 94
[2024-07-18 12:46] VITALS: BP 174/98; PULSE 92; O2SAT 91
== END 2024-07-18 12:47 | disposition home or self-care (01) ==
PROVIDERS: Emergency Provider Physician Assistant; PCP Nurse Practitioner
DX: M54.50 Low back pain, unspecified (principal); Z79.4 Long term (current) use of insulin; I25.10 Atherosclerotic heart disease of native coronary artery without angina pectoris; E11.9 Type 2 diabetes mellitus without complications; E78.5 Hyperlipidemia, unspecified; I11.0 Hypertensive heart disease with heart failure; I50.20 Unspecified systolic (congestive) heart failure
CPT/HCPCS: 74176; 80053; 81001; 85025; 96374; 96375; 99285; J0360; J2270; J2405

== ENCOUNTER 2024-08-01 13:43 | Outpatient (CLI) | payer MEDICAID, SELFPAY ==
--- NOTE | 2024-08-01 13:45 | USR_ITS ---
PROCEDURE INFORMATION: Exam: US Retroperitoneal, Complete, Kidneys and Bladder Exam date and time: 08/01/2024 2:02 PM Age: 58 years old Clinical indication: Condition or disease; Kidney or ureter condition; Cyst of kidney; Additional info: N28.1 - cyst of kidney, acquired TECHNIQUE: Imaging protocol: Real-time ultrasound of the retroperitoneum with image documentation. Complete exam focused on the bilateral kidneys and urinary bladder. COMPARISON: US renal BI with PV bladder 07/18/2019 2:42 PM FINDINGS: Right kidney: The right kidney is unremarkable. There is no hydronephrosis. No visible stones. The right kidney measures 11.1 cm in length. Left kidney: There is a simple cyst in the left kidney measured 6.0 x 5.2 x 4.4 cm. The left kidney measures 14 cm in length. There is no hydronephrosis or visible stones on the left. Urinary bladder: The bladder is nondistended. Aorta: The abdominal aorta is unremarkable. US/US renal BI* [id number] IMPRESSION: Simple 6 cm left renal cyst. No imaging follow-up is recommended.
--- NOTE | 2024-08-01 14:15 | USR_ITS ---
PROCEDURE INFORMATION: Exam: US Pelvis, Transvaginal, Non-Obstetric Exam date and time: 08/01/2024 2:24 PM Age: 58 years old Clinical indication: Condition or disease; Ovarian conditions; Cyst; Additional info: N83.202 - unspecified ovarian cyst, left side TECHNIQUE: Imaging protocol: Real-time transvaginal pelvic (non-obstetric) ultrasound with image documentation. Transvaginal imaging was used for better evaluation of the endometrium, adnexa, and/or cervix. COMPARISON: US renal BI with PV bladder 07/18/2019 2:42 PM FINDINGS: Uterus: The uterus is anteverted. Uterine contours are normal. The endometrium is homogenous. Endometrial stripe thickness measures 6 mm. There is trace fluid in the endometrial canal. Right ovary/adnexa: The right ovary is not visible. Left ovary/adnexa: The left ovary is not visible. Urinary bladder: Limited evaluation. Intraperitoneal space: No free fluid. US/US transvaginal [id number] IMPRESSION: Nondiagnostic evaluation of the ovaries. Consider transabdominal ultrasound or MRI for ovarian evaluation.
== END 2024-08-01 13:44 | disposition home or self-care (01) ==
PROVIDERS: PCP Nurse Practitioner; Visit Provider Nurse Practitioner
DX: N28.1 Cyst of kidney, acquired (principal); N83.202 Unspecified ovarian cyst, left side
CPT/HCPCS: 76770; 76830

== ENCOUNTER → 2024-10-09 13:45 | Outpatient (BNVA) | payer MEDICAID, SELFPAY | PROVIDERS: PCP Nurse Practitioner; Visit Provider Nurse Practitioner | DX: E11.65 Type 2 diabetes mellitus with hyperglycemia (principal); Z79.4 Long term (current) use of insulin; E55.9 Vitamin D deficiency, unspecified; I10 Essential (primary) hypertension | CPT/HCPCS: 80053; 80061; 82043; 82306; 82607; 83036; 84443 ==

== ENCOUNTER 2024-12-15 10:19 | Outpatient (CLI) | payer MEDICAID, SELFPAY ==
--- NOTE | 2024-12-15 10:28 | XR_ITS ---
WS: [id number] XR lumbar spine 2-3V* [id number] REASON FOR EXAM: M54.42 - Lumbago with sciatica, left side FINDINGS: Moderate rotatory levoscoliosis. No significant vertebral body compression deformity or focal lesion. Mild endplate sclerosis and osteophytosis L1-L5. Moderate narrowing of the L5-S1 disc space with moderate endplate sclerosis and osteophytosis. No spondylolysis. No significant spondylolisthesis. XR/XR lumbar spine 2-3V* [id number] IMPRESSION: Lumbar degenerative spondylosis as above.
--- NOTE | 2024-12-15 10:28 | XR_ITS ---
WS: [id number] XR cervical spine 3V* [id number] REASON FOR EXAM: M54.2 - Cervicalgia FINDINGS: Normal lordosis with moderate anterior subluxation of the cervical spine and mild dextroscoliosis. No significant compression deformity or focal lesion of the cervical vertebrae. Normal odontoid. Mild narrowing of the C6-C7 and C7-T1 disc spaces with mild endplate sclerosis and osteophytosis. No significant listhesis in the cervical spine. 3 mm of anterolisthesis of T1 on T2. XR/XR cervical spine 3V* [id number] IMPRESSION: Subluxation and degenerative spondylosis as above.
--- NOTE | 2024-12-15 10:28 | XR_ITS ---
WS: [id number] RIGHT SHOULDER: 2 VIEW(S) TECHNIQUE: Internal and external rotation. HISTORY: M54.2 - Cervicalgia COMPARISON: 12/27/2049 As compared to the prior exam from 12/27/2014 the humeral head is slightly subluxed inferiorly. Some of this may be related to the positioning as the shoulder is not centered on the radiographs. No fracture identified. Mild AC joint narrowing. XR/XR shoulder RT min 2V* [id number] IMPRESSION: 1. Mild inferior subluxation of the humeral head versus artifact from patient positioning. Recommend repeat RIGHT shoulder imaging with the shoulder centered on the radiograph. There is no need to include as much chest within the should er radiograph. Also recommend axillary view which will help determine whether t here is anterior posterior subluxation. 2. No fracture. 3. Mild AC joint narrowing.
== END 2024-12-15 10:20 | disposition home or self-care (01) ==
PROVIDERS: PCP Nurse Practitioner; Visit Provider Nurse Practitioner
DX: M47.892 Other spondylosis, cervical region (principal); M25.78 Osteophyte, vertebrae; M47.896 Other spondylosis, lumbar region; M19.011 Primary osteoarthritis, right shoulder
CPT/HCPCS: 72040; 72100; 73030

== ENCOUNTER → 2024-12-25 10:47 | Outpatient (BNVA) | payer MEDICAID, SELFPAY | PROVIDERS: PCP Nurse Practitioner; Visit Provider Nurse Practitioner | DX: E11.65 Type 2 diabetes mellitus with hyperglycemia (principal); Z79.4 Long term (current) use of insulin | CPT/HCPCS: 80053; 80061; 83036; 85025 ==

== ENCOUNTER → 2025-02-01 16:41 | Outpatient (BNVA) | payer MEDICAID, SELFPAY | PROVIDERS: PCP Nurse Practitioner; Visit Provider Nurse Practitioner | DX: R39.9 Unspecified symptoms and signs involving the genitourinary system (principal) | CPT/HCPCS: 81000; 82962; 87086 ==

== ENCOUNTER 2025-02-03 13:38 | Outpatient (CLI) | payer MEDICAID, SELFPAY ==
--- NOTE | 2025-02-03 13:30 | USCV_ITS ---
Felisa Medina Age: 59 Gender: F : 1965 Exam Date: 02/03/2025 14:04 Ordering Phys: Lonny Mendoza Technologist: Exam Location: [facility] [place] Indication: cp sob chf BP: 170 / 109 HR: 67 Rhythm: Sinus Technical Quality: Adequate MEASUREMENTS (Male / Female) Normal Values 2D ECHO LV Diastolic Diameter PLAX 5.0 cm 4.2 - 5.9 / 3.9 - 5.3 cm IVS Diastolic Thickness 1.6 cm 0.6 - 1.0 / 0.6 - 0.9 cm IVS Systolic Thickness 2.0 cm LVPW Diastolic Thickness 1.9 cm 0.6 - 1.0 / 0.6 - 0.9 cm LVPW Systolic Thickness 2.1 cm LVOT Diameter 2.1 cm LV Ejection Fraction 2D Teich 66.5 % LV Ejection Fraction MOD 4C 74.9 % LV Ejection Fraction MOD 2C 61.4 % LV Ejection Fraction 2C AL 61.2 % LA Diameter 3.8 cm RA Systolic Volume 4C AL 53.1 ml RA Systolic Volume 4C MOD 51.8 ml Aorta at Sinotubular Diameter 3.5 cm M-MODE LA Ao Ratio MM 1.2 AV Cusp Separation MM 2.2 cm DOPPLER AV Peak Velocity 169.0 cm/s LVOT Peak Velocity 126.0 cm/s AV Area Cont Eq vti 4.1 cm squared AV Area Cont Eq pk 2.7 cm squared MV Peak Velocity 107.0 cm/s MV Area PHT 2.5 cm squared Mitral E to A Ratio 0.7 TV Peak Velocity 188.5 cm/s TR Peak Velocity 224.0 cm/s TR Peak Gradient 20.1 mmHg TV Peak E Velocity 90.0 cm/s PV Peak Velocity 136.0 cm/s FINDINGS Left Ventricle Normal left ventricular size and systolic function, EF 67%. Mild left ventricular hypertrophy. No regional wall motion abnormalities. Grade I/IV diastolic dysfunction (abnormal relaxation filling pattern), normal to mildly elevated filling pressures. Right Ventricle Normal right ventricular size and systolic function. Right Atrium Normal right atrial size. Left Atrium Normal left atrial size. IA Septum Normal appearance of the interatrial septum. Mitral Valve Mild mitral annular calcification. Aortic Valve No gross abnormalities noted .. Tricuspid Valve Trace tricuspid valve regurgitation. Pulmonic Valve No gross abnormalities noted Pericardium No pericardial effusion. Aorta Normal aortic annulus size. IVC Normal inferior vena cava. CONCLUSIONS Normal left ventricular size and systolic function, EF 67%. Mild left ventricular hypertrophy. No regional wall motion abnormalities. Grade I/IV diastolic dysfunction (abnormal relaxation filling pattern), normal to mildly elevated filling pressures. Mild mitral annular calcification. Trace tricuspid valve regurgitation. Estimated pulmonary artery peak systolic pressure 24 mmHg There is no pericardial effusion. There are no intracardiac masses. Compared to the study from 03/08/2019, there may not be a significant change [email or web address] Dr Tania Fuentes MD [facility] (Electronically Signed) Final Date: 06 February 2025 16:42 S
== END 2025-02-03 13:39 | disposition home or self-care (01) ==
PROVIDERS: PCP Nurse Practitioner; Visit Provider Nurse Practitioner
DX: I11.0 Hypertensive heart disease with heart failure (principal); I50.9 Heart failure, unspecified; R07.9 Chest pain, unspecified; R06.02 Shortness of breath; I34.81 Nonrheumatic mitral (valve) annulus calcification; I36.1 Nonrheumatic tricuspid (valve) insufficiency; I51.89 Other ill-defined heart diseases
CPT/HCPCS: 93306

== ENCOUNTER 2025-02-08 20:27 | Emergency (ER) | payer MEDICAID, SELFPAY ==
--- NOTE | 2025-02-08 20:35 | W.ED.NAVMDI ---
HPI - Nausea/Vomiting/Diarrhea General: Stated complaint: Constantly going to the bathroom, diarrhea Time Seen by Provider: 02/08/25 20:33 Related Data Home Medications ?Medication ?Instructions ?Recorded ?Confirmed diclofenac sodium 1 % topical gel 2 g topical QID PRN Pain 07/18/24 02/01/25 (Voltaren Arthritis Pain) Previous Rx's ?Medication ?Instructions ?Recorded Oxygen 2 L #1 ea 05/27/24 blood-glucose meter (True Metrix #1 ea 06/04/24 Glucose Meter) pen needle, diabetic, safety 30 #100 ea 06/07/24 gauge x 5/16 (Assure ID Pen Needle) insulin glargine 100 unit/mL (3 45 unit (0.45 mL) SUBCUT QAM #15 mL 07/12/24 mL) subcutaneous pen (Lantus Solostar U-100 Insulin) Held on 10/08/24. Instructions: Improved glucose pantoprazole 40 mg tablet,delayed 40 mg PO DAILY #30 tabs 07/12/24 release (Protonix) Held on 10/08/24. Instructions: Doctor's Order mupirocin 2 % topical ointment 1 applic topical BID #22 grams 10/08/24 nystatin 100,000 unit/gram topical 1 applic topical BID PRN Skin 10/31/24 cream Irritation #30 grams albuterol sulfate 90 mcg/actuation 2 puff inhalation Q6H PRN 12/25/24 aerosol inhaler (Ventolin HFA) shortness of breath or wheezing #6.7 grams baclofen 20 mg tablet 20 mg PO .at bedtime spasms 30 12/25/24 days #30 tabs blood sugar diagnostic (True #100 ea 12/25/24 Metrix Glucose Test Strip) desvenlafaxine succinate 100 mg 100 mg PO DAILY #30 tabs 12/25/24 tablet,extended release 24 hr (Pristiq) diltiazem HCl 240 mg 240 mg PO DAILY #30 caps 12/25/24 capsule,extended release 24 hr doxepin 50 mg capsule 50 mg PO BID #60 caps 12/25/24 ergocalciferol (vitamin D2) 1,250 50,000 unit PO .weekly #4 caps 12/25/24 mcg (50,000 unit) capsule (Vitamin D2) evolocumab 140 mg/mL subcutaneous 140 mg SUBCUT .every 14 days #1 mL 12/25/24 pen injector (Repangélica Arriola) fenofibrate nanocrystallized 145 145 mg PO DAILY #30 tabs 12/25/24 mg tablet (Tricor) hydralazine 100 mg tablet 100 mg PO TID #90 tabs 12/25/24 hydroxyzine pamoate 25 mg capsule 25 mg PO .at bedtime #30 caps 12/25/24 isosorbide mononitrate 60 mg 60 mg PO DAILY #30 tabs 12/25/24 tablet,extended release 24 hr meloxicam 15 mg tablet 15 mg PO DAILY #30 tabs 12/25/24 metoprolol tartrate 100 mg tablet 100 mg PO BID #60 tabs 12/25/24 naltrexone 50 mg tablet 50 mg PO DAILY #30 tabs 12/25/24 oxybutynin chloride 5 mg 5 mg PO DAILY #30 tabs 12/25/24 tablet,extended release 24 hr pregabalin 300 mg capsule (Lyrica) 300 mg PO BID 30 days #60 caps 12/25/24 valsartan 320 mg tablet (Diovan) 320 mg PO DAILY #30 tabs 12/25/24 zaleplon 10 mg capsule 10 mg PO BEDTIME #30 caps 12/25/24 xdsxonzdopkwojx-ftrqaeqxlzbkk-JI 4 5 ml PO .three times day 7 days 12/30/24 mg-10 mg-20 mg/5 mL oral liquid #473 mL semaglutide 2 mg/dose (8 mg/3 mL) 2 mg (0.75 mL) SUBCUT .weekly #3 mL 01/26/25 subcutaneous pen injector (ecomom) lidocaine 5 % topical patch 2 patch topical DAILY PRN Pain #60 01/27/25 ea ciprofloxacin HCl 500 mg tablet 500 mg PO BID 7 days #14 tabs 02/01/25 Allergies Allergy/AdvReac Type Severity Reaction Status Date / Time latex Allergy Intermediate hives Verified 12/25/24 09:39 simvastatin Allergy Unknown Unknown Verified 12/25/24 09:39 adhesive tape Allergy ALGY-Rash Verified 12/25/24 09:39 aspirin Allergy ALGY-Hives Verified 12/25/24 09:39 calcium carbonate (From Allergy rash Verified 12/25/24 09:39 Sal[place] (aspirin)) magnesium (From Salagen Allergy rash Verified 12/25/24 09:39 (aspirin)) eszopiclone (From Lunesta) AdvReac Severe ADR-Confusi Verified 12/25/24 09:39 on PFSH ED PFS: Medical History Irritable bowel syndrome with diarrhea Breast screening declined Anxiety, generalized Recurrent biliary colic SVT (supraventricular tachycardia) Allergy-induced asthma Type 2 diabetes mellitus with hyperglycemia, with long-term current use of insulin Obesity, morbid, BMI 40.0-49.9 DM type 2, uncontrolled, with neuropathy Vitamin D deficiency Primary osteoarthritis of right knee Fibromyalgia Chronic arthritis Lumbar pain with radiation down leg Left knee pain Insomnia Juvenile epilepsy Frequent falls GERD (gastroesophageal reflux disease) Hyperlipidemia Hypertension Chronic back pain Syncope Type 2 diabetes mellitus CAD (coronary artery disease) Systolic heart failure Diabetes Surgical History History of colonoscopy S/P laparoscopic sleeve gastrectomy Previous section Family History Other CAD (coronary artery disease) Diabetes Social History Smoking and tobacco/nicotine status: never used tobacco/nicotine Second hand smoke exposure: No Alcohol intake: never Substance/Drug Use: never Adopted: No Caregiver/support person: No Lives independently: Yes Household members: spouse Housing: House Marital status: Number of children: 3 service: No Current occupational status: unemployed Do you think of yourself as: Straight/Heterosexual Current gender identity: Female Discharge Plan Discharge Condition: Stable Prescriptions: No Action insulin glargine [Lantus Solostar U-100 Insulin] 100 unit/mL (3 mL) insulin pen 45 unit SUBCUT QAM Qty: 15 2RF pantoprazole [Protonix] 40 mg tablet,delayed release (DR/EC) 40 mg PO DAILY Qty: 30 2RF (DME) Oxygen 2 L See Rx Instructions .Route .MEDSUPPLY Qty: 1 0RF Rx Instructions: Use 2L NC at night for 99 months mupirocin 2 % ointment 1 applic topical BID Qty: 22 0RF albuterol sulfate [Ventolin HFA] 90 mcg/actuation HFA aerosol inhaler 2 puff inhalation Q6H PRN (Reason: shortness of breath or wheezing) Qty: 6.7 2RF baclofen 20 mg tablet 20 mg PO .at bedtime 30 Days Qty: 30 2RF (DME) True Metrix Glucose Test Strip Strip See Rx Instructions .Route Qty: 100 5RF Rx Instructions: use one day diltiazem HCl 240 mg capsule,extended release 24hr 240 mg PO DAILY Qty: 30 2RF ergocalciferol (vitamin D2) [Vitamin D2] 1,250 mcg (50,000 unit) capsule 50,000 unit PO .weekly Qty: 4 2RF Rx Instructions: Sunday Repatha SureClick 140 mg/mL pen injector 140 mg SUBCUT .every 14 days Qty: 1 2RF fenofibrate nanocrystallized [Tricor] 145 mg tablet 145 mg PO DAILY Qty: 30 2RF hydralazine 100 mg tablet 100 mg PO TID Qty: 90 2RF meloxicam 15 mg tablet 15 mg PO DAILY Qty: 30 2RF isosorbide mononitrate 60 mg tablet extended release 24 hr 60 mg PO DAILY Qty: 30 2RF metoprolol tartrate 100 mg tablet 100 mg PO BID Qty: 60 2RF oxybutynin chloride 5 mg tablet extended release 24hr 5 mg PO DAILY Qty: 30 2RF pregabalin [Lyrica] 300 mg capsule 300 mg PO BID 30 Days Qty: 60 2RF valsartan [Diovan] 320 mg tablet 320 mg PO DAILY Qty: 30 2RF zaleplon 10 mg capsule 10 mg PO BEDTIME Qty: 30 2RF desvenlafaxine succinate [Pristiq] 100 mg tablet extended release 24 hr 100 mg PO DAILY Qty: 30 2RF Rx Instructions: Stop Effexor doxepin 50 mg capsule 50 mg PO BID Qty: 60 2RF hydroxyzine pamoate 25 mg capsule 25 mg PO .at bedtime Qty: 30 2RF naltrexone 50 mg tablet 50 mg PO DAILY Qty: 30 2RF ciprofloxacin HCl 500 mg tablet 500 mg PO BID 7 Days Qty: 14 0RF (DME) blood-glucose meter [True Metrix Glucose Meter] Misc See Rx Instructions .Route Qty: 1 0RF Rx Instructions: As directed ([facility] [place]) Assure ID Pen Needle 30 gauge x 5/16 needle See Rx Instructions .Route Qty: 100 2RF Rx Instructions: one day nystatin 100,000 unit/gram cream 1 applic topical BID PRN (Reason: Skin Irritation) Qty: 30 0RF ertlwsnubuxgps-ogzkgdguyshn-SP 4-10-20 mg/5 mL liquid 5 ml PO .three times day 7 Days Qty: 473 0RF Ozempic 2 mg/dose (8 mg/3 mL) pen injector 2 mg SUBCUT .weekly Qty: 3 2RF Rx Instructions: Sunday lidocaine 5 % adhesive patch,medicated 2 patch topical DAILY PRN (Reason: Pain) Qty: 60 2RF Rx Instructions: leave on most painful area for up to 12 hrs diclofenac sodium [Voltaren Arthritis Pain] 1 % gel 2 g topical QID PRN (Reason: Pain) Rx Instructions: apply to single elbow, wrist or hand; for hand includes palm/fingers/back of hand Referrals: Lonny Mendoza, [employer] [Primary Care Provider, Family Practice] Print Language: Cuban Coding Level of Care Code ED Hat Binder for Warren Rosado
[2025-02-08 20:41] VITALS: BP 187/86; PULSE 87; RESP 20; TEMP 37.6; O2SAT 94; BMI 47.1
[2025-02-08 20:47] LABS: Hematocrit 41.6 % (36-47); Hemoglobin 13.50 g/dL (11.27-16.99); Mean Corpuscular HGB Conc 32.5 g/dL (30-55); Mean Corpuscular Hemoglobin 28.5 pg (27-33); Mean Corpuscular Volume 87.8 fl (85-98); Nucleated Red Blood Cells % 0 %; Platelet Count 214 10^3/cmm (157-399); Red Blood Count 4.74 10^6/uL (3.85-5.65); White Blood Count 5.11 10^3/uL (3.29-11.43)
[2025-02-08 21:04] LABS: Glucose Urine UA 3+ (Normal); Nitrate Urine Negative (Negative)
[2025-02-08 21:05] LABS: Alanine Aminotransferase 20 U/L (0-33); Albumin Level 4.1 g/dL (3.5-5.2); Alkaline Phosphatase 76 U/L (35-105); Anion Gap 16.0 (5-19); Aspartate Amino Transferase 21 U/L (0-32); Blood Urea Nitrogen 11 mg/dL (8-23); Calcium 9.6 mg/dL (8.5-10.5); Carbon Dioxide 27 mmol/L (22-29); Chloride 95 mmol/L (98-107); Globulin 2.6 g/dL (1.3-4.6); Lipase 50 U/L (13-60); Osmolality Calculated 306 mOsm/kg (285-295); Potassium 4.0 mmol/L (3.5-5.1); Sodium 134 mmol/L (136-145); Total Protein 6.7 g/dL (6.6-8.7)
[2025-02-08 21:09] LABS: Add Urine Microscopic? YES
--- NOTE | 2025-02-08 21:11 | ED_ITS ---
HPI - Female Genitourinary 2 General: Chief complaint: Urogenital-Female Stated complaint: Constantly going pee Time Seen by Provider: 02/08/25 20:33 Source: patient Mode of arrival: ambulatory Limitations: no limitations History of Present Illness: Patient is a 59-year-old female presents to ED today with a complaint of urinary frequency. She states she has been urinating every 15 minutes for the past week and a half or so. She states these are full void volumes and denies urinary dribbling. She feels like her urine is clear. She is complaining of pain (points to her bilateral groins) that is intense before she gets the feeling to urinate but when the pain subsides she is then able to go. She was reportedly seen at a walk-in clinic last week and placed on antibiotics for UTI but states her culture came back negative. She later reached out to her primary care provider who told her it could be her bladder falling down and reportedly was instructed to come to the emergency department. Patient is not complaining of flank pain. No fevers or vomiting. When asked, she does report feeling like she is sitting on a balloon. Denies urethral burning with urination. MD elicited complaint: other (urinary frequency) Onset (ago): day(s) Severity: moderate Quality of pain: sharp and stabbing Consistency: intermittent Vaginal discharge: none Vaginal bleeding: none Associated symptoms: Reports no associated symptoms; Deny nausea Treatment prior to arrival: none Patient : No Related Data Home Medications ?Medication ?Instructions ?Recorded ?Confirmed diclofenac sodium 1 % topical gel 2 g topical QID PRN Pain 07/18/24 02/01/25 (Voltaren Arthritis Pain) Previous Rx's ?Medication ?Instructions ?Recorded Oxygen 2 L #1 ea 05/27/24 blood-glucose meter (True Metrix #1 ea 06/04/24 Glucose Meter) pen needle, diabetic, safety 30 #100 ea 06/07/24 gauge x 5/16 (Assure ID Pen Needle) insulin glargine 100 unit/mL (3 45 unit (0.45 mL) SUBC UT QAM #15 mL 07/12/24 mL) subcutaneous pen (Lantus Solostar U-100 Insulin) Held on 10/08/24. Instructions: Improved glucose pantoprazole 40 mg tablet,delayed 40 mg PO DAILY #30 t abs 07/12/24 release (Protonix) Held on 10/08/24. Instructions: Doctor's Order mupirocin 2 % topical ointment 1 applic topical BID #2 2 grams 10/08/24 nystatin 100,000 unit/gram topical 1 applic topical BI D PRN Skin 10/31/24 cream Irritation #30 grams albuterol sulfate 90 mcg/actuation 2 puff inhalation Q 6H PRN 12/25/24 aerosol inhaler (Ventolin HFA) shortness of breath or wheezing #6.7 grams baclofen 20 mg tablet 20 mg PO .at bedtime spasms 30 12/25/24 days #30 tabs blood sugar diagnostic (True #100 ea 12/25/24 Metrix Glucose Test Strip) desvenlafaxine succinate 100 mg 100 mg PO DAILY #30 ta bs 12/25/24 tablet,extended release 24 hr (Pristiq) diltiazem HCl 240 mg 240 mg PO DAILY #30 caps capsule,extended release 24 hr doxepin 50 mg capsule 50 mg PO BID #60 caps ergocalciferol (vitamin D2) 1,250 50,000 unit PO .week ly #4 caps 12/25/24 mcg (50,000 unit) capsule (Vitamin D2) evolocumab 140 mg/mL subcutaneous 140 mg SUBCUT .every 14 days #1 mL 12/25/24 pen injector (Emily Arriola) fenofibrate nanocrystallized 145 145 mg PO DAILY #30 t abs 12/25/24 mg tablet (Tricor) hydralazine 100 mg tablet 100 mg PO TID #90 tabs 12/25 hydroxyzine pamoate 25 mg capsule 25 mg PO .at bedtime #30 caps 12/25/24 isosorbide mononitrate 60 mg 60 mg PO DAILY #30 tabs 1 tablet,extended release 24 hr meloxicam 15 mg tablet 15 mg PO DAILY #30 tabs 12/04 05/27 metoprolol tartrate 100 mg tablet 100 mg PO BID #60 ta bs 12/25/24 naltrexone 50 mg tablet 50 mg PO DAILY #30 tabs 12/04 05/27 oxybutynin chloride 5 mg 5 mg PO DAILY #30 tabs 12/25 tablet,extended release 24 hr pregabalin 300 mg capsule (Lyrica) 300 mg PO BID 30 da ys #60 caps 12/25/24 valsartan 320 mg tablet (Diovan) 320 mg PO DAILY #30 t abs 12/25/24 zaleplon 10 mg capsule 10 mg PO BEDTIME #30 caps umhqjjyvoqyworc-whvcyrmbkvdkn-SP 4 5 ml PO .three time s day 7 days 12/30/24 mg-10 mg-20 mg/5 mL oral liquid #473 mL semaglutide 2 mg/dose (8 mg/3 mL) 2 mg (0.75 mL) SUBCU T .weekly #3 mL 01/26/25 subcutaneous pen injector ([employer]) lidocaine 5 % topical patch 2 patch topical DAILY PRN Pain #60 01/27/25 ea ciprofloxacin HCl 500 mg tablet 500 mg PO BID 7 days # 14 tabs 02/01/25 Allergies Allergy/AdvReac Type Severity Reaction Status Date / Time latex Allergy Intermediate hives Verified 02/08/25 20:49 simvastatin Allergy Unknown Unknown Verified 02/08/25 20:49 adhesive tape Allergy ALGY-Rash Verified 02/08/25 20:49 aspirin Allergy ALGY-Hives Verified 02/08/25 20:49 calcium carbonate (From Allergy rash Verified 02/08/25 20:49 Salagen (aspirin)) magnesium (From Salagen Allergy rash Verified 02/08/25 20:49 (aspirin)) eszopiclone (From Lunesta) AdvReac Severe ADR-Confusi Verified 02/08/25 20:49 on Review of Systems 2 Const: Denies: fever(s), chills, body aches, fatigue or malaise Card: Denies: chest pain Resp: Denies: dyspnea GI: Denies: nausea, vomiting or diarrhea : Reports: urinary frequency, urinary urgency, pelvic pain and prolapse symptoms (reports yes when I ask her if it feels like she is sitting on a balloon); Denies: flank pain, dysuria, dribbling or hematuria Musc: Reports: back pain (chronic-at baseline) Neuro: Denies: difficulty walking or dizziness PFSH ED 2 PFSH: Medical History Irritable bowel syndrome with diarrhea Breast screening declined Anxiety, generalized Recurrent biliary colic SVT (supraventricular tachycardia) Allergy-induced asthma Type 2 diabetes mellitus with hyperglycemia, with long-term current use of insulin Obesity, morbid, BMI 40.0-49.9 DM type 2, uncontrolled, with neuropathy Vitamin D deficiency Primary osteoarthritis of right knee Fibromyalgia Chronic arthritis Lumbar pain with radiation down leg Left knee pain Insomnia Juvenile epilepsy Frequent falls GERD (gastroesophageal reflux disease) Hyperlipidemia Hypertension Chronic back pain Syncope Type 2 diabetes mellitus CAD (coronary artery disease) Systolic heart failure Diabetes Surgical History History of colonoscopy S/P laparoscopic sleeve gastrectomy Previous section Family History Other CAD (coronary artery disease) Diabetes Social History Smoking and tobacco/nicotine status: never used tobacco/nicotine Second hand smoke exposure: No Alcohol intake: never Substance/Drug Use: never Adopted: No Caregiver/support person: No Lives independently: Yes Household members: spouse Housing: House Marital status: Number of children: 3 service: No Current occupational status: unemployed Do you think of yourself as: Straight/Heterosexual Current gender identity: Female Physical Exam 2 Const: COMMON NORMALS: no acute distress, patient oriented x3, no limitations, alert and well nourished GENERAL APPEARANCE: cooperative NUTRITIONAL APPEARANCE: obese morbidly obese (BMI 47.1) Resp: COMMON NORMALS: normal respiratory effort and clear to auscultation bilaterally AUSCULTATION: clear to auscultation bilaterally Cardio: COMMON NORMALS: regular rate and regular rhythm RATE: regular rate RHYTHM: regular rhythm GI: COMMON NORMALS: Normal to inspection, nondistended, normoactive bowel sounds present, Soft to palpation, No hepatosplenomegaly present and no masses INSPECTION: Yes normal to inspection AUSCULTATION: Yes normoactive bowel sounds PALPATION: Yes Soft to palpation, Yes Tenderness to palpation present (GI) (reports tenderness throughout lower abdomen/pelvis), No Guarding due to palpation present (GI), No Rigid due to palpation and Yes No hepatosplenomegaly present : COMMON NORMALS: Yes no CVA tenderness BLADDER/KIDNEY EXAM: Yes no CVA tenderness OTHER: attempted pelvic exam here but difficult due to body habitus/patient positioning/and not being able to tolerate stirrups; vulvar atrophy noted; no obvious uretheral irritation Back/Pelvis: COMMON NORMALS: no CVA tenderness Neuro: COMMON NORMALS: patient oriented x3 SENSORIUM/ORIENTATION: Yes alert Course 2 Vital Signs: Vital signs: Vital Signs Temperature 99.7 F H 02/08/25 20:41 Pulse Rate 87 02/08/25 20:41 Respiratory Rate 20 H 02/08/25 20:41 Blood Pressure 187/86 02/08/25 20:41 Pulse Oximetry 94 02/08/25 20:41 Oxygen Delivery Me thod Room Air 02/08/25 20:41 MDM - Female Medical Decision Making Patient is a 59-year-old female here for complaints of urinary frequency over the past week and a half or so. She does describe pain in her lower pelvis before she needs to urinate. She does not describe urethral burning during urination. She reports clear large/full volume voids. She was able to void here and we did perform a post void bladder scanner with only 45 mL remaining. Her UA does not appear suspicious for infection. She has a recent negative culture. If were not dealing with infection, other differentials could include interstitial cystitis, bladder spasms, patient/primary care are worried about pelvic organ prolapse (she did report feeling like she was sitting on a balloon- pelvic exam attempted here but was difficult due to patient positioning in stirrups), overactive bladder, vulvovaginal atrophy, excess oral intake, hyperglycemia (patient's blood sugar was noted to be 620 today-she feels like they have ran in the 200s at home and does report checking these often), among others. I do not feel there is anything emergent we need to do today. She also needs well women's exam as she states it has been a few years. Will refer to PSYCHIATRIC AIDE INSTRUCTOR to start but she ultimately may need urology. Did discuss better glycemic control as this should cut down on some of the frequency. She does complain of pain so I think there may be another component contributing. Vital signs are stable. Blood work overall is unremarkable. Despite her glucose of 620, she has a normal gap and normal bicarb kidney functions are normal. Medical Records I reviewed the patient's medical records. Lab Data I reviewed the patient's lab results. 02/08/25 20:43 02/08/25 20:43 Laboratory Results WBC 5.11 10^3/uL (3.29-11.43) 12/07/25 20:43 RBC 4.74 10^6/uL (3.85-5.65) 02/08/25 20:43 Hgb 13.50 g/dL (11.27-16.99) 02/08/25 20:43 Hct 41.6 % (36-47) 02/08/25 20:43 MCV 87.8 fl (85-98) 02/08/25 20:43 MCH 28.5 pg (27-33) 02/08/25 20:43 MCHC 32.5 g/dL (30-55) 02/08/25 20:43 RDW 13.1 % (12.1-15.1) 02/08/25 20:43 Plt Count 214 10^3/cmm (157-399) 02/08/25 20:43 MPV 11.8 fL (7.4-10.4) H 02/08/25 20:43 Neut % (Auto) 58.9 % 02/08/25 20:43 Lymph % (Auto) 25.2 % 02/08/25 20:43 Mitchell % (Auto) 10.8 % 02/08/25 20:43 Eos % (Auto) 4.1 % 02/08/25 20:43 Baso % (Auto) 0.6 % 02/08/25 20:43 Neut # (Auto) 3.01 10^3/uL (1.8-7.7) 02/08/25 20:43 Lymph # (Auto) 1.3 10^3/uL (0.8-4.8) 02/08/25 20:43 Mitchell # (Auto) 0.6 10^3/uL (0.2-0.9) 02/08/25 20:43 Eos # (Auto) 0.2 10^3/uL (0.0-0.8) 02/08/25 20:43 Baso # (Auto) 0.0 10^3/uL (0.0-0.1) 02/08/25 20:43 Nucleated RBC % (auto) 0 % 02/08/25 20:43 Nucleated RBCs # 0.0 /100WBC 02/08/25 20:43 Sodium 134 mmol/L (136-145) L 02/08/25 20:43 Potassium 4.0 mmol/L (3.5-5.1) 02/08/25 20:43 Chloride 95 mmol/L (98-107) L 02/08/25 20:43 Carbon Dioxide 27 mmol/L (22-29) 02/08/25 20:43 Anion Gap 16.0 (5-19) 02/08/25 20:43 BUN 11 mg/dL (8-23) 02/08/25 20:43 Creatinine 0.9 mg/dL (0.5-0.9) 02/08/25 20:43 GFR Calculation 63.9 mL/min (90-130) L 02/08/25 20:43 Glucose 620 mg/dL (65-115) H* 02/08/25 20:43 Calculated Osmolality 306 mOsm/kg (285-295) H 02/08/25 20:43 Calcium 9.6 mg/dL (8.5-10.5) 02/08/25 20:43 Total Bilirubin 0.3 mg/dL (0.15-1.2) 02/08/25 20:43 AST 21 U/L (0-32) 02/08/25 20:43 ALT 20 U/L (0-33) 02/08/25 20:43 Alkaline Phosphatase 76 U/L (35-105) 02/08/25 20:43 Total Protein 6.7 g/dL (6.6-8.7) 02/08/25 20:43 Albumin 4.1 g/dL (3.5-5.2) 02/08/25 20:43 Globulin 2.6 g/dL (1.3-4.6) 02/08/25 20:43 Lipase 50 U/L (13-60) 02/08/25 20:43 Urine Color Yellow (Yellow) 02/08/25 20:55 Urine Appearance Clear (CLEAR) 02/08/25 20:55 Urine pH 5.0 (5-7) 02/08/25 20:55 Ur Specific [place] 1.036 (1.005-1.030) H 02/08/25 20:55 Urine Protein Negative (Negative) 02/08/25 20:55 Urine Glucose (UA) 3+ (Normal) H 02/08/25 20:55 Urine Ketones Negative (Negative) 02/08/25 20:55 Urine Blood Negative (Negative) 02/08/25 20:55 Urine Nitrate Negative (Negative) 02/08/25 20:55 Urine Bilirubin Negative (Negative) 02/08/25 20:55 Urine Urobilinogen 0.2 mg/dL (Negative) 02/08/25 20:55 Ur Leukocyte Esterase Negative (Negative) 02/08/25 20:55 Urine RBC 0-2 /hpf (0-2) 02/08/25 20:55 Urine WBC 0-5 /hpf (0-5) 02/08/25 20:55 Ur Squamous Epith Cells 0-5 /hpf (0-5) 02/08/25 20:55 Amorphous Sediment Not Reportable 02/08/25 20:55 Urine Bacteria None seen /hpf (NONE) 02/08/25 20:55 Hyaline Casts 0-4 /lpf H 02/08/25 20:55 No radiology studies performed this visit Discharge Plan Discharge Patient Disposition: Home Clinical Impression: Increased urinary frequency Condition: Stable Prescriptions: No Action insulin glargine [Lantus Solostar U-100 Insulin] 100 unit/mL (3 mL) insulin pen 45 unit SUBCUT QAM Qty: 15 2RF pantoprazole [Protonix] 40 mg tablet,delayed release (DR/EC) 40 mg PO DAILY Qty: 30 2RF (DME) Oxygen 2 L See Rx Instructions .Route .MEDSUPPLY Qty: 1 0RF Rx Instructions: Use 2L NC at night for 99 months mupirocin 2 % ointment 1 applic topical BID Qty: 22 0RF albuterol sulfate [Ventolin HFA] 90 mcg/actuation HFA aerosol inhaler 2 puff inhalation Q6H PRN (Reason: shortness of breath or wheezing) Qty: 6.7 2RF baclofen 20 mg tablet 20 mg PO .at bedtime 30 Days Qty: 30 2RF (DME) True Metrix Glucose Test Strip Strip See Rx Instructions .Route Qty: 100 5RF Rx Instructions: use one day diltiazem HCl 240 mg capsule,extended release 24hr 240 mg PO DAILY Qty: 30 2RF ergocalciferol (vitamin D2) [Vitamin D2] 1,250 mcg (50,000 unit) capsule 50,000 unit PO .weekly Qty: 4 2RF Rx Instructions: Sunday Repatha SureClick 140 mg/mL pen injector 140 mg SUBCUT .every 14 days Qty: 1 2RF fenofibrate nanocrystallized [Tricor] 145 mg tablet 145 mg PO DAILY Qty: 30 2RF hydralazine 100 mg tablet 100 mg PO TID Qty: 90 2RF meloxicam 15 mg tablet 15 mg PO DAILY Qty: 30 2RF isosorbide mononitrate 60 mg tablet extended release 24 hr 60 mg PO DAILY Qty: 30 2RF metoprolol tartrate 100 mg tablet 100 mg PO BID Qty: 60 2RF oxybutynin chloride 5 mg tablet extended release 24hr 5 mg PO DAILY Qty: 30 2RF pregabalin [Lyrica] 300 mg capsule 300 mg PO BID 30 Days Qty: 60 2RF valsartan [Diovan] 320 mg tablet 320 mg PO DAILY Qty: 30 2RF zaleplon 10 mg capsule 10 mg PO BEDTIME Qty: 30 2RF desvenlafaxine succinate [Pristiq] 100 mg tablet extended release 24 hr 100 mg PO DAILY Qty: 30 2RF Rx Instructions: Stop Effexor doxepin 50 mg capsule 50 mg PO BID Qty: 60 2RF hydroxyzine pamoate 25 mg capsule 25 mg PO .at bedtime Qty: 30 2RF naltrexone 50 mg tablet 50 mg PO DAILY Qty: 30 2RF ciprofloxacin HCl 500 mg tablet 500 mg PO BID 7 Days Qty: 14 0RF (DME) blood-glucose meter [True Metrix Glucose Meter] Misc See Rx Instructions .Route Qty: 1 0RF Rx Instructions: As directed ([facility] [place]) Assure ID Pen Needle 30 gauge x 5/16 needle See Rx Instructions .Route Qty: 100 2RF Rx Instructions: one day nystatin 100,000 unit/gram cream 1 applic topical BID PRN (Reason: Skin Irritation) Qty: 30 0RF npguknmhwvxipx-flptufydzrxt-YS 4-10-20 mg/5 mL liquid 5 ml PO .three times day 7 Days Qty: 473 0RF Ozempic 2 mg/dose (8 mg/3 mL) pen injector 2 mg SUBCUT .weekly Qty: 3 2RF Rx Instructions: Sunday lidocaine 5 % adhesive patch,medicated 2 patch topical DAILY PRN (Reason: Pain) Qty: 60 2RF Rx Instructions: leave on most painful area for up to 12 hrs diclofenac sodium [Voltaren Arthritis Pain] 1 % gel 2 g topical QID PRN (Reason: Pain) Rx Instructions: apply to single elbow, wrist or hand; for hand includes palm/fingers/back of hand Discharge Orders: Discharge ED (Routine); Ordered 02/08/25 Ordered By: Meghan Oliveira Referrals: Lonny Mendoza, [facility]IDE WORKER-C [Primary Care Provider, Family Practice] Patient Instructions: Urinary Urgency and Frequency (DC), Patient Portal & Mary Instructions Activity Restrictions/Additional Instructions: Etiology for urinary frequency is broad and can include things like bladder infection, interstitial cystitis, overactive bladder, pelvic organ prolapse, among several others. Certainly hyperglycemia can cause urinary frequency and your blood sugar today was over 600. We will refer to you PSYCHIATRIC AIDE INSTRUCTOR for further evaluation as you and primary care are worried about a pelvic organ prolapse. You may eventually need to see urology if symptoms do not improve. Print Language: Malay Coding Level of Care Code ED Long Term Care Phlebotomist for Warren Rosado
[2025-02-08 21:12] LABS: Glucose 620 mg/dL (65-115)
[2025-02-08 21:13] LABS: Specific Gravity, Urine 1.036 (1.005-1.030)
== END 2025-02-08 22:08 | disposition home or self-care (01) ==
PROVIDERS: Emergency Provider Physician Assistant; PCP Nurse Practitioner
DX: R35.0 Frequency of micturition (principal); Z79.4 Long term (current) use of insulin; I25.10 Atherosclerotic heart disease of native coronary artery without angina pectoris; E78.5 Hyperlipidemia, unspecified; E11.40 Type 2 diabetes mellitus with diabetic neuropathy, unspecified; I11.0 Hypertensive heart disease with heart failure; I50.20 Unspecified systolic (congestive) heart failure
CPT/HCPCS: 36415; 51798; 80053; 81001; 83690; 85025; 99283